=== PATIENT | female | born 1945 | race Caucasian/White ===

== ENCOUNTER 2019-09-25 13:02 | Day surgery (SDC) | payer MEDICARE ==
[2019-09-22 12:25] VITALS: BMI 23.8
[~2019-09-25 13:02] MED LIST: Dexamethasone 20 MG/5 ML VIAL ONE; Ketorolac Tromethamine 30 MG/ML VIAL ONE; Lidocaine 1% PF 5 ML VIAL ONE; Ondansetron PF 4 MG/2 ML Vial ONE; PHENYLEPHRINE-NS 100 MCG/ML 10 ML SYRINGE ONE; PROPOFOL 200 MG/20 ML VIAL ONE
[2019-09-25 13:51] LABS: #Basophils 0.1 thou/uL (0.0-0.2); #Eosinphils 0.2 thou/uL (0.0-0.7); #Lymphocytes 2.7 thou/uL (1.20-3.40); #Monocytes 1.2 thou/uL (0.11-0.59); #Neutrophils 6.8 thou/uL (1.40-6.50); %Basophils 0.8 % (0.0-1.0); %Lymphocytes 24.4 % (21.0-51.0); %Monocytes 10.8 % (0.0-10.0); Hemoglobin 9.4 g/dL (12.0-16.0); Mean Corpuscular Hemoglobin 29.3 pg (27.0-31.0); Mean Corpuscular Volume 91.5 fL (78.0-98.0); Mean Platelet Volume 7.2 fL (7.4-10.4); Platelet Count 351 thou/uL (130-400); RBC Distribution Width 16.9 % (11.5-14.5)
[2019-09-25] MEDS ORDERED: Betamet Acet/Betamet Na Ph 30 MG/5 ML VIAL ONE (15:22)
[2019-09-25] MEDS ORDERED: Bupivacaine PF 0.5% 30 ML VIAL ONE (15:22)
[2019-09-25] MEDS ORDERED: Bacitracin Zinc Ointment 30 gm TUBE ONE (15:22)
[2019-09-25] MEDS ORDERED: Fentanyl 100 MCG/2 ML VIAL ONE (15:37)
--- NOTE | 2019-09-26 09:26 | OP ---
DATE OF PROCEDURE: 09/25/2019 PREOPERATIVE DIAGNOSIS: Right thumb 3.0 cm tumor. 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 PROCEDURES PERFORMED: 1. Excision, 3.0 cm x 1.0 cm (4 square cm diameter) squamous cell carcinoma. 2. 3 x 1 cm full-thickness skin graft from the ipsilateral, antecubital fossa full-thickness. 3. Ulnar digital nerve neuroplasty, mass sent to the lab. Initially, 3 cm long was not enough and performed a 5 mm more margin making the total tumor area approximately 3.5 cm. In the second specimen, margins were clear. TOURNIQUET TIME: 7 minutes. INDICATIONS FOR PROCEDURE: The patient came to clinic approximately 2 weeks ago with a mass that had a cornified central portion. We felt that it could be squamous cell carcinoma versus some type of area should be removed. The case was enough that it did not need to be delayed based on coronavirus protocols. DESCRIPTION OF PROCEDURE: After successful general endotracheal anesthesia, the limb was prepped and draped. We then gave a field block 3 cm proximal to the mass. As we began to excise the mass, we noticed that the ulnar edge of the tumor including the margins was over the ulnar digital nerve, so we performed a complete ulnar digital nerve neuroplasty before we removed the mass. Then, we initially took what I felt was a 3 and 0.2 cm area of skin for about a 3 cm mass, but on one portion, the margin was not clear, so performed a 5 mm resection completely around giving us a 3.5 cm total benign tumor removal. The final margin had no squamous cell carcinoma in its margin. In one region, there was a 1 mm area of dedifferentiated cells, but not cancer, so we then performed another 2 mm margin in this region. Thus, we felt the margins were clear. We released the tourniquet and irrigated the area. We then harvested a 3 x 1 cm (4 square cm area) and skin graft, full-thickness, we then sutured it to extended it, and hemostasis underneath it and then, a running 5-0 chromic suture with bolstered 4-0 nylon over bacitracin under Adaptic under mineral oil soaked cotton balls. We tied this down. There was excellent coaptation of the graft to the underlying fat and there was no separation. The thumb had a pink color with 1 second refill. Bulky dressing was applied. The patient left the operating room without evidence of anesthetic or operative complication. Job ID: [id number]
== END 2019-09-25 20:05 | disposition home or self-care (01) ==
LOC: SDC 13:02
PROVIDERS: ATTEND Orthopaedic Surgery Hand Surgery
PROC: 0HBFXZZ Excision of Right Hand Skin, External Approach (ICD-10-PCS; principal; 2019-09-25)
PROC: 0HRFX73 Replacement of Right Hand Skin with Autologous Tissue Substitute, Full Thickness, External Approach (ICD-10-PCS; 2019-09-25)
PROC: 01N40ZZ Release Ulnar Nerve, Open Approach (ICD-10-PCS; 2019-09-25)
DX: C44.622 Squamous cell carcinoma of skin of right upper limb, including shoulder (principal); I96 Gangrene, not elsewhere classified; E11.29 Type 2 diabetes mellitus with other diabetic kidney complication; F17.200 Nicotine dependence, unspecified, uncomplicated; E78.5 Hyperlipidemia, unspecified; Z79.82 Long term (current) use of aspirin; Z79.899 Other long term (current) drug therapy
CPT/HCPCS: 36415; 85025; 88304; 88305; 88331; 88332; 93005; 93010; J0690; J0702; J1100; J1885; J2001; J2405; J2704; J3010; J3490; S0020

== ENCOUNTER 2019-09-26 14:16 | Inpatient (IN) | payer MEDICARE ==
[2019-09-26] MEDS ORDERED: Iopamidol-370 76% 500 ML 1 ML ONE (14:34)
[2019-09-26 14:56] LABS: #Basophils 0.1 thou/uL (0.0-0.2); #Monocytes 1.8 thou/uL (0.11-0.59); #Neutrophils 15.7 thou/uL (1.40-6.50); %Basophils 0.4 % (0.0-1.0); %Eosinophils 0.1 % (0.0-10.0); %Lymphocytes 10.1 % (21.0-51.0); %Neutrophils 80.3 % (42.0-75.0); Mean Corpuscular HGB CONC 31.5 g/dL (32.0-36.0); Mean Corpuscular Hemoglobin 29.2 pg (27.0-31.0); Mean Corpuscular Volume 92.7 fL (78.0-98.0); Mean Platelet Volume 7.6 fL (7.4-10.4); Platelet Count 379 thou/uL (130-400); RBC Distribution Width 17.2 % (11.5-14.5); Red Blood Cell (RBC) Count 3.08 mill/uL (4.20-5.40); White Blood Cell (WBC) Count 19.6 thou/uL (4.8-10.8)
--- NOTE | 2019-09-26 15:04 | RAD ---
CHEST 1 VIEW: Date: 09/26/2019 HISTORY: Dyspnea and shortness of breath. FINDINGS: Heart size is within upper range of normal. Increased linear and interstitial markings bilaterally an d small bilateral pleural effusions, raising concern for the possibility of some edema and small effu sions. No confluent lobar pneumonia. No old studies. IMPRESSION: 1. Increased linear and interstitial markings bilaterally with small bilateral pleural effusions, po ssibly representing mild edema or diffuse atypical pneumonia or pneumonitis. 2. Atherosclerosis of aorta. Depending on concern, short-term follow-up with upright PA and lateral chest might give additional in formation. POS: [facility]
[2019-09-26 15:37] LABS: ALT (SGPT) 16 U/L (8-55); AST (SGOT) 34 U/L (5-34); Albumin 4.1 g/dL (3.4-4.8); Alkaline Phosphatase 87 U/L (40-110); Anion Gap 14 mmol/L (10-20); BUN (Urea Nitrogen) 11 mg/dL (9.8-20.1); Bilirubin, Total 0.5 mg/dL (0.2-1.2); Calc. Creatinine Clearance 0 mL/min (70-130); Calcium 9.3 mg/dL (7.8-10.44); Carbon Dioxide 26 mmol/L (23-31); Chloride 105 mmol/L (98-107); Estimated GFR-MDRD 67; Globulin 2.6 g/dL (2.4-3.5); Glucose 128 mg/dL (83-110); Potassium 4.6 mmol/L (3.5-5.1); Protein, Total 6.7 g/dL (6.0-8.3); Sodium 140 mmol/L (136-145)
[2019-09-26 16:09] LABS: CKMB 16.9 ng/mL (0-6.6)
--- NOTE | 2019-09-26 16:11 | CT ---
CTA Angio Chest W WO Con History: Shortness of breath Comparison: Radiograph same day Findings: CT angiogram of the chest performed after the intravenous administration of contrast. 3-D r endering provided. No proximal segmental pulmonary arterial filling defect. Heart size mildly enlarged. Reactive mediastinal lymph nodes. Aortic contour is nonaneurysmal. Moderate bilateral pleural effusions. Mild interstitial and developing alveolar edema. Moderate background centrilobular emphysema. No acut e osseous abnormality. Clavicles are intact as well as the sternum and manubrium. No acute displaced rib fracture. There is high-grade ossification of a left ventricle papillary muscle. Impression: 1. No proximal segmental pulmonary arterial filling defect. 2. Mild decompensated congestive heart failure. 3. Moderate background pulmonary emphysema.
[2019-09-26 16:40] LABS: Analyzer IN Cardio ER; Base Excess (BEa) -4.9 mEq/L (-2.0 to +3.0); CO2 Tension 36.4 mmHg (35.0-45.0); Calcium, Ionized 1.15 mmol/L (1.12-1.30); Carboxyhemoglobin (COHb) 0.8 gm% (0.0-3.0); Hemoglobin (Hb) 9.6 g/dL (12.0-16.0); O2 Tension (PaO2) 72.8 mmHg (> 70.0); Potassium - ABG Lab 4.09 mmol/L (3.70-5.30); Puncture Site RRA; pH, Arterial 7.36 (7.35-7.45)
[2019-09-26] MEDS ORDERED: Furosemide 20 MG/2 ML VIAL ONE (16:47)
[2019-09-26] MEDS ORDERED: Enoxaparin Sodium 60 MG/0.6 ML SYRINGE ONE (16:47)
--- NOTE | 2019-09-26 19:12 | HP ---
PRIMARY CARE PHYSICIAN: Dr. Garcia. CHIEF COMPLAINT: Shortness of breath. HISTORY OF PRESENT ILLNESS: This is a 74-year-old white female with a past medical history of longstanding smoking and longstanding mild shortness of breath at baseline, never diagnosed with emphysema, but likely has, also with a history of hyperlipidemia and previous carotid stenosis with TIA, status post CEA. She continues to smoke. She did have a cancerous lesion on her thumb removed by Dr. Diaz yesterday. The patient was in her baseline physical status at that time. After surgery, she did well. She went home, had no problems overnight, but this morning, she started having a little shortness of breath, and then around 11:30 or 12, it got severely worse, seemed a little better when she would lay down, much worse if she would move with activity. Eventually, she called EMS. She was found to be in the 70s at home. She does not use any oxygen at home, was put on BiPAP and given nebs, and brought into the emergency room. She was doing much better at that time, and she was weaned down to 4 L nasal cannula; however, then she started to work a lot harder again, and O2 saturations started to drop again, so she was put back on BiPAP, on which she is quite comfortable right now. She was found to have an elevated troponin of 0.4, an elevated brain natriuretic peptide of 500, and an elevated D-dimer, so CTA was done, which showed no pulmonary embolism, but she did have mild pulmonary edema. No evidence of pneumonia. She did have an elevated white count of 20,000 without any source of infection identified. REVIEW OF SYSTEMS: CONSTITUTIONAL: No fevers. No chills. EYES: No double vision or blurred vision. ENT: No congestion or drainage. She has had a little bit of sore throat since her surgery yesterday from the tube being put down, but not bad and has been swallowing well. CARDIOVASCULAR: No chest pain. No palpitations or racing heart. PULMONARY: See HPI. She has also had wheezing, minimal cough, and not productive at all. She has had chest tightness. GASTROINTESTINAL: No abdominal pain. No nausea or vomiting. No diarrhea or constipation. GENITOURINARY: No dysuria or hematuria. MUSCULOSKELETAL: No muscle aches or joint pain. SKIN: No rashes or lesions she has noted. EXTREMITIES: No lower extremity edema. NEUROLOGIC: No numbness, tingling, or focal weakness. PAST MEDICAL HISTORY: 1. Previous TIA. 2. Right carotid stenosis, status post CEA. 3. Hyperlipidemia. 4. Likely emphysema, not requiring oxygen or inhalers. 5. Diabetes mellitus mentioned in previous hospital notes, but the patient denies and is not on any medication. PAST SURGICAL HISTORY: 1. Right carotid endarterectomy in 2016. 2. Ventral hernia repair in 1973. 3. Tonsillectomy. 4. Cataract surgery to the right eye. 5. Bilateral tubal ligation. FAMILY HISTORY: Mother of a heart attack at age 36, and she had 2 brothers who fairly early of unknown causes. SOCIAL HISTORY: The patient has smoked 1 pack per day for the last 60 years. She drinks 2 rum and cokes per day. No illicit drugs. She is a full code. Her would be her medical decision maker. His name is Gadiel Paiz Jr. ALLERGIES: NO KNOWN DRUG ALLERGIES. CURRENT MEDICATIONS: 1. Aspirin 325 mg daily. 2. Simvastatin 80 mg at night. PHYSICAL EXAMINATION: VITAL SIGNS: Blood pressure 127/78, pulse 120, respirations 25, O2 saturation 92%. This was on right when she was put on BiPAP. Currently, on my exam, her heart rate is running in the low 100s, and her respiratory rate is down around 21 to 22 per minute. GENERAL: This is a well-developed, well-nourished, white female, in mild respiratory distress. Breathing much easier on the BiPAP. HEENT: Pupils are equal, round, and reactive to light. Oropharynx, dry mucous membranes. NECK: Supple. No lymphadenopathy. No thyroid nodules or enlargement. HEART: Regular rate and regular rhythm. Mildly tachycardic. No murmurs, rubs, or gallops. LUNGS: She has decreased breath sounds throughout. Some mild wheezing occasionally. No crackles noted. ABDOMEN: Soft. Nontender to palpation. Normoactive bowel sounds. No hepatosplenomegaly or other masses. No hepatojugular reflux. EXTREMITIES: No clubbing, cyanosis, or edema. SKIN: No rashes or lesions noted. NEUROLOGIC: The patient has intact strength and sensation in all extremities. No facial droop. PSYCHIATRIC: Alert and oriented x3. Normal mood and affect. LABORATORY DATA: CBC with a white blood cell count of 19,600, platelet count of 379, hemoglobin 9, hematocrit 28.5. Coagulation profile; D-dimer is elevated at 0.88. Complete metabolic panel is notable only for glucose of 128. brain natriuretic peptide was elevated at 493. Troponin was elevated at 0.421, and CK-MB was elevated at 16.9. EKG done in the emergency room shows sinus tachycardia. There are some downsloping ST segments with some inverted T waves in the lateral [address]-segment elevation. Chest x-ray: I did review the chest x-ray done in the emergency room along with the radiologist's report. There are some very mild interstitial changes that could be early pulmonary edema on that chest x-ray. CT scan does show no pulmonary embolism, but does show mild pulmonary edema without any infiltrates. ASSESSMENT AND PLAN: 1. Acute congestive heart failure with evidence of [id number] myocardial infarction. The patient has been given aspirin and Lovenox in the emergency room for this. No current chest pain. No significant blood pressure elevations at this time. We will continue IV Lasix 20 mg IV twice a day. We will also get an echocardiogram. We will consult Dr. Jurado for the morning. We will make the patient n.p.o. after midnight in case Dr. Jurado wants to do any catheterization should she be in a better respiratory status in the morning. I will continue the full-dose Lovenox q.12 hours. We will start the patient on low-dose KELECHI and low-dose Coreg as well, especially with her tachycardia. 2. Oaqdw-[id number] respiratory failure with hypoxia, likely secondary to congestive heart failure exacerbation and emphysema. Continue BiPAP as needed and wean off as tolerated. 3. Emphysema with acute exacerbation. We will give some IV steroids and nebulizing treatments. No specific infectious signs at this point, so we will hold off on any antibiotics, but given the elevated white count, we will go ahead and draw blood cultures, check urinalysis, and watch closely for signs of infection. We will consult Dr. Moreira, Pulmonology to assist. 4. Hyperlipidemia. We will convert the patient to high-dose atorvastatin with her acute myocardial infarction. 5. Gastrointestinal prophylaxis. Put the patient on Pepcid twice a day. 6. Deep venous thrombosis prophylaxis. The patient is already on Lovenox. 7. Code status: The patient is a full code. Should she be incapacitated, her will be her medical decision maker. His name is Gadiel Paiz. Job ID: [id number]
[2019-09-26 19:33] LABS: Troponin I 2.039 ng/mL (< 0.028)
[2019-09-26] MEDS ORDERED: Aspirin Chewable 81 MG TAB ONE (19:36)
[2019-09-26] MEDS ORDERED: Ondansetron ODT 4 MG TAB PO PRN (20:36)
[2019-09-26] MEDS ORDERED: Acetaminophen 650 MG Suppository PR PRN (20:36)
[2019-09-26] MEDS ORDERED: Dextrose 50% Abboject 50 ML SYRINGE SLOW IVP PRN (20:36)
[2019-09-26] MEDS ORDERED: Ondansetron PF 4 MG/2 ML Vial IVP PRN (20:36)
[2019-09-26] MEDS ORDERED: Albuterol Sulfate 2.5 mg/3 ml Neb NEB PRN (20:36)
[2019-09-26] MEDS ORDERED: HumaLOG 300 UNITS/3 ML VIAL SC PRN (20:36)
[2019-09-26] MEDS ORDERED: Acetaminophen 325 MG TAB PO PRN (20:36)
[2019-09-26] MEDS ORDERED: Dextrose 5% in Water 1,000 ML IV PRN (20:36)
[2019-09-26] MEDS ORDERED: Guaifenesin DM 100-10/5 ML UDCUP PO PRN (20:36)
[2019-09-26] MEDS ORDERED: Bacteriostatic Water 30 ML VIAL FS PRN (20:53)
[2019-09-26] MEDS: Atorvastatin Calcium 40 MG TAB PO SCH (21:18)
[2019-09-26] MEDS: Famotidine 20 MG TAB PO SCH (21:18)
[2019-09-26] MEDS: Carvedilol 3.125 MG TAB PO SCH (21:18)
[2019-09-27] MEDS: methylPREDNISolone Sod Succ 40 MG VIAL IVP SCH ×4 (00:02→16:56)
[2019-09-27 03:51] LABS: #Basophils 0.1 thou/uL (0.0-0.2); #Monocytes 0.7 thou/uL (0.11-0.59); #Neutrophils 12.3 thou/uL (1.40-6.50); %Basophils 0.4 % (0.0-1.0); %Eosinophils 0.2 % (0.0-10.0); %Lymphocytes 7.2 % (21.0-51.0); %Monocytes 5.2 % (0.0-10.0); Hemoglobin 8.5 g/dL (12.0-16.0); Mean Corpuscular HGB CONC 32.1 g/dL (32.0-36.0); Mean Corpuscular Hemoglobin 29.6 pg (27.0-31.0); Mean Corpuscular Volume 92.1 fL (78.0-98.0); Mean Platelet Volume 8.1 fL (7.4-10.4); Platelet Count 329 thou/uL (130-400); RBC Distribution Width 17.3 % (11.5-14.5); Red Blood Cell (RBC) Count 2.87 mill/uL (4.20-5.40); White Blood Cell (WBC) Count 14.1 thou/uL (4.8-10.8)
[2019-09-27 03:53] LABS: Anion Gap 12 mmol/L (10-20); BUN (Urea Nitrogen) 12 mg/dL (9.8-20.1); Calc. Creatinine Clearance 66 mL/min (70-130); Carbon Dioxide 26 mmol/L (23-31); Chloride 105 mmol/L (98-107); Estimated GFR-MDRD 75; Glucose 166 mg/dL (83-110); Potassium 4.2 mmol/L (3.5-5.1); Sodium 139 mmol/L (136-145)
[2019-09-27] MEDS: Furosemide 20 MG/2 ML VIAL SLOW IVP SCH ×2 (05:54→13:26)
[2019-09-27 09:23] LABS: Hemoglobin 9.3 g/dL (12.0-16.0); Platelet Count 330 thou/uL (130-400)
[2019-09-27] MEDS: Famotidine 20 MG TAB PO SCH ×2 (09:52→20:51)
[2019-09-27] MEDS: Carvedilol 3.125 MG TAB PO SCH ×2 (09:53→20:51)
[2019-09-27] MEDS: Enoxaparin Sodium 60 MG/0.6 ML SYRINGE SC SCH ×2 (09:53→20:51)
[2019-09-27] MEDS: Aspirin Chewable 81 MG TAB PO SCH (09:53)
[2019-09-27] MEDS: Lisinopril 2.5 MG TAB PO SCH (09:53)
--- NOTE | 2019-09-27 10:37 | PDOC.HOSPP ---
- Subjective Encounter Date: 09/27/19 Encounter Time: 12:30 Subjective: Patient with some low BP this AM to 80s, better now in low 100s. Asymptomatic. Breathing much better. Off Bipap, on NC and sating well. - Objective Vital Signs & Weight: Vital Signs (12 hours) Temp Pulse Resp BP Pulse Ox 09/27/19 09:53 88 85/54 L 09/27/19 07:55 99 09/27/19 07:54 88 20 99 09/27/19 07:44 96 09/27/19 07:37 97.1 F L 09/27/19 04:03 98.8 F 09/27/19 02:12 96 09/27/19 00:27 91 09/26/19 23:41 98.0 F Weight Weight 137 lb 3.2 oz Most Recent Monitor Data Heart Rate from ECG 93 NIBP 76/55 NIBP BP-Mean 62 Respiration from ECG 23 SpO2 90 I&O: 09/26/19 09/27/19 09/28/19 06:59 06:59 06:59 Intake Total 294 Output Total 450 Balance -156 Result Diagrams: 09/27/19 09:07 09/27/19 09:07 Additional Labs: Accuchecks 09/27/19 09/26/19 05:32 20:57 POC Glucose 206 H 141 H Hospitalist ROS - Review of Systems Constitutional: denies: fever, chills Respiratory: reports: cough, shortness of breath Cardiovascular: denies: chest pain, palpitations, orthopnea Gastrointestinal: denies: nausea, vomiting, abdominal pain - Medication Medications: Active Medications Generic Name Dose Route Start Last Admin Trade Name Erasmoq PRN Reason Stop Dose Admin Albuterol/Ipratropium 3 ml 09/27/19 01:00 09/27/19 07:54 Duoneb NEB 3 ml [id number] ELISABETH Administration Aspirin 81 mg 09/27/19 09:00 09/27/19 09:53 Aspirin Chewable PO 81 mg DAILY ELISABETH Administration Atorvastatin Calcium 80 mg 09/26/19 21:00 09/26/19 21:18 Lipitor PO 80 mg HS ELISABETH Administration Carvedilol 3.125 mg 09/26/19 21:00 09/27/19 09:53 Coreg PO Not Given BID ELISABETH Enoxaparin Sodium 60 mg 09/27/19 09:00 09/27/19 09:53 Lovenox SC 60 mg 0900,2100 ELISABETH Administration Famotidine 20 mg 09/26/19 21:00 09/27/19 09:52 Pepcid PO 20 mg BID ELISABETH Administration Furosemide 20 mg 09/27/19 06:00 09/27/19 05:54 Lasix SLOW IVP 20 mg 0600,1400 ELISABETH Administration Lisinopril 2.5 mg 09/27/19 09:00 09/27/19 09:53 Zestril PO Not Given DAILY ELISABETH Methylprednisolone Sodium Succinate 40 mg 09/26/19 23:59 09/27/19 05:54 Solu-Medrol IVP 40 mg Q6HR ELISABETH Administration Sodium Chloride 10 ml 09/26/19 20:01 09/27/19 09:53 Flush - Normal Saline IVF 10 ml PRN PRN Administration Saline Flush - Exam General Appearance: NAD, awake alert ENT: moist mucosa Heart: RRR, no murmur, no gallops, no rubs Respiratory: no tachypnea Respiratory - other findings: poor breath sounds, occ wheezing, no crackles Gastrointestinal: soft, non-tender, non-distended, normal bowel sounds Psychiatric: normal affect, normal behavior, A&O x 3 Hosp A/P (1) Acute congestive heart failure Code(s): I50.9 - HEART FAILURE, UNSPECIFIED Status: Acute (2) NSTEMI (non-ST elevated myocardial infarction) Code(s): I21.4 - NON-ST ELEVATION (NSTEMI) MYOCARDIAL INFARCTION Status: Acute (3) Acute and chronic respiratory failure with hypoxia Code(s): J96.21 - ACUTE AND CHRONIC RESPIRATORY FAILURE WITH HYPOXIA Status: Acute (4) Acute exacerbation of emphysema Code(s): J43.9 - EMPHYSEMA, UNSPECIFIED Status: Acute (5) Hyperlipidemia Code(s): E78.5 - HYPERLIPIDEMIA, UNSPECIFIED Status: Acute - Plan Patient with some hypotensive BP this AM. May not be able to diurese any further. Dr. Jurado cardiology and Dr. Moreira pulmonology consulted. Patient on ASA, Lovenox, Lasix, Coreg and KELECHI-I (held) ECHO pending Patient critically ill
[2019-09-27] MEDS: HumaLOG 300 UNITS/3 ML VIAL SC PRN (16:53)
--- NOTE | 2019-09-27 17:25 | CON ---
DATE OF CONSULTATION: HISTORY OF PRESENT ILLNESS: Kaelyn Infante is a 74-year-old white female without any previously known cardiac disease, although she has undergone a carotid endarterectomy. On September 24, she had removal of her cancerous lesion on her thumb by Dr. Diaz and apparently tolerated procedure well. Then when she woke up on the morning of September 25, she started having increasing shortness of breath in the late morning. She denied any significant coughing. She denied any chest discomfort. She could not get her breath and her called EMS. Apparently when they arrived, her O2 saturation was 78%. She was put on BiPAP, given nebs, brought to the emergency room. She had an elevated D-dimer and so chest CTA was performed which revealed no evidence of pulmonary emboli, however, she did have moderate bilateral effusions and evidence of COPD. Her chest x-ray also showed bilateral effusions with increased interstitial markings. Cardiac enzymes have been elevated and consultation is requested. PAST MEDICAL HISTORY: Hypotension in the past, hyperlipidemia, history of TIA prior to carotid endarterectomy, probable COPD. PAST SURGICAL HISTORY: Right carotid endarte[place] [address] Dupree, ventral hernia repair, tonsillectomy, tubal ligation, and cataract surgery of the right eye. MEDICATIONS: 1. Aspirin 325 q.a.m. 2. Simvastatin 80 q.p.m. SOCIAL HISTORY: She continues to smoke 1 pack per day for the last 60 years. She has 2 to 3 drinks per day. ALLERGIES: NONE. FAMILY HISTORY: Mother of heart attack apparently at age 36. REVIEW OF SYSTEMS: A 10-point review of systems is otherwise unremarkable. PHYSICAL EXAMINATION: VITAL SIGNS: Blood pressure 93/63, pulse of 96. HEENT: PERRL. NECK: Supple. CHEST: Reveals distant breath sounds, but no wheezing. CARDIOVASCULAR: S1 and S2 normal without any S3, S4, or murmurs. Carotid upstrokes normal without bruits. ABDOMEN: Normal bowel sounds without tenderness or organomegaly. EXTREMITIES: Revealed no clubbing, cyanosis, or edema. NEUROLOGIC: Grossly intact. LABORATORY DATA: EKG reveals sinus tachycardia with rate of 103 per minute. There is downsloping ST segments in V4 through V6, which are new from the EKG the day prior when she had undergone thumb surgery. Hemoglobin 8.5, hematocrit 26.4, white count 14,100, platelets 329,000. D-dimer is 0.88, pH 7.36, pCO2 of 36.4, PO2 of 72.8. Sodium 139, potassium 4.2, chloride 105, carbon dioxide 26, BUN 12, creatinine 0.76, glucose 166 up to 206. Troponin I is up to 4.190, CK-MB 16.9. AST and ALT are normal. BNP 493.4. Hemoglobin A1c in April 2019 was 6.2. IMPRESSION: 1. Acute hypoxic respiratory failure, improved with BiPAP. 2. Probable acute systolic heart failure with bilateral pleural effusion seen on chest x-ray. 3. Chronic obstructive pulmonary disease exacerbation. 4. Probable chronic obstructive pulmonary disease. 5. Smoker. 6. Hypercholesterolemia. It is of note that in April 2019, her LDL was 122. LDL from the blood test has never been lower than 94. 7. Positive family history. 8. Peripheral vascular disease-status post right carotid endarterectomy [place] [address] Dupree. 9. Probable non-ST elevation myocardial infarction, type 1. 10. Diabetes which patient denies, and she is not receiving treatment for it. PLAN: Echocardiogram will be performed to assess left ventricular function. The patient will continue to be gently diuresed. Once her respiratory status has improved, consideration should be given to cardiac catheterization. Also fasting lipid profile will be performed and she probably needs much more aggressive regimen for her hypercholesterolemia. Job ID: [id number]
--- NOTE | 2019-09-27 18:58 | CON ---
DATE OF CONSULTATION: 09/27/2019 SERVICE: Pulmonary Medicine. REASON FOR CONSULTATION: [facility] patient. HISTORY OF PRESENT ILLNESS: The patient is a 74-year-old white female with past medical history significant for essentially nothing, who underwent an elective excision of a growth from her thumb on the right. After the procedure, she was discharged home in her usual state of health. She is doing fairly well, but just simply felt off. She really could not put her finger on it. She was not having any chest discomfort, nausea, vomiting or diarrhea. She was having a little bit more weakness than that she previously experienced. Either way, she started having onset of shortness of breath that evening, before she even went to bed. She had a difficult time sleeping, and subsequently presented to the emergency department, where she was discovered to have low oxygen saturations. She was placed on noninvasive ventilation, and given some Lasix because of volume overload event. Subsequently, she improved significantly, but not before BiPAP was initiated. Overnight, her BiPAP was interrupted early in the morning. She does not have any current chest discomfort, nausea or vomiting. Prior to this event, she was not having any fevers. Once again, she is only postop day #1 from the surgery. PAST MEDICAL HISTORY: 1. Dyslipidemia. 2. Type 2 diabetes mellitus. 3. COPD/emphysema, not requiring therapy currently. 4. Peripheral vascular disease. 5. History of TIAs. PAST SURGICAL HISTORY: 1. Carotid endarterectomy on the right. 2. Ventral hernia repair. 3. Tonsillectomy. 4. Cataract surgery on the right. 5. Tubal ligation, bilateral. FAMILY HISTORY: Noncontributory. SOCIAL HISTORY: She has a 66-vyuk-fymu history of smoking and continues to smoke roughly one pack on a daily basis. She drinks 2 to 3 alcoholic beverages on a nightly basis. Denies any street drugs. She has no exposure to chemicals, dust , asbestos or tuberculosis. ALLERGIES: NO KNOWN DRUG ALLERGIES. MEDICATIONS: List of her inpatient medications was reviewed. No specific updates were made at this time. REVIEW OF SYSTEMS: General, head, ears, eyes, nose, throat, cardiovascular, respiratory, GI, , musculoskeletal, neurologic, and skin are negative except as mentioned in the HPI. PHYSICAL EXAMINATION: VITAL SIGNS: Afebrile, pulse 109, blood pressure 99/47, respirations 26, saturation 90%, currently on 2 L nasal cannula. GENERAL: The patient is awake and alert, in no apparent distress. LUNGS: Good air entry bilaterally. There is some minimal dependent crackles present. There is a slightly prolonged expiratory phase with minimal wheezing. Rhonchi are present, but clear with cough. HEART: Normal rate, regular. ABDOMEN: Soft, nontender, and nondistended. Bowel sounds are positive. MUSCULOSKELETAL: No cyanosis or clubbing. There is no pitting in the bilateral lower extremities. She has no skin tenting. NEUROLOGIC: Grossly nonfocal. LABORATORY DATA: Comprehensive metabolic profile is unremarkable. Troponin has gone up from 0.4 up to 4.1. BNP 493. Troponin 0.94 and roughly stable. D- dimer is 0.88. PH of 7.36, pCO2 of 36, pO2 of 72, corresponding to saturation of 93% while wearing 40% FiO2 delivered via BiPAP and a PEEP of 6. Blood cultures x2 are unremarkable. IMAGING: CTA of the chest demonstrates extensive calcifications of the aorta. Emphysema is present. There are bilateral pleural effusions and interstitial fullness consistent with volume overload. There are subtle ground-glass opacifications. The left atrium and left ventricle are dilated. The right atrium and right ventricle are fairly compressed. There is a little bit of reflux of contrast into the inferior vena cava. All these findings are most consistent with emphysema and severe volume overload. ASSESSMENT: 1. Acute hypoxic respiratory failure. 2. Chronic obstructive pulmonary disease with acute exacerbation. 3. [id number]-[id number] myocardial infarction. 4. Acute on chronic diastolic heart failure. 5. Anemia. DISCUSSION AND PLAN: Echocardiogram is currently pending. I will deescalate our steroids to 40 mg of prednisone to be taken on a daily basis. We will continue to diurese the patient slowly through time. She is rapidly approaching euvolemia, so I will back off to once daily on her diuretic. Cardiology opinion is pending regarding the [id number] CA. She has been anticoagulated already. I believe that her respiratory decompensation is associated with volume. As such, I think it is reasonable to hold off on antibiotics for the time being. If she remains off BiPAP, she will be stable for transition out of the IMCU to the telemetry unit. 70 minutes have been devoted to this patient in various activities. I personally reviewed all imaging studies and laboratory data noted within this document. For fifty percent of this time, I was interacting with the patient at the bedside or coordinating care with the care team. For the remainder of the time I was immediately available to the patient in the hospital unit. Job ID: [id number] [id number]
[2019-09-27] MEDS: Atorvastatin Calcium 40 MG TAB PO SCH (20:51)
[2019-09-28 03:51] LABS: Reticulocyte Count 2.9 % (0.5-1.5)
[2019-09-28 04:12] LABS: Band 3 % (5-11); Hemoglobin 8.2 g/dL (12.0-16.0); Lymphocytes 4 % (21-51); MDiff Complete? YES; Mean Corpuscular HGB CONC 33.3 g/dL (32.0-36.0); Mean Corpuscular Hemoglobin 30.3 pg (27.0-31.0); Mean Platelet Volume 8.3 fL (7.4-10.4); Monocytes 8 % (0-10); Neutrophil 85 % (42-75); Platelet Count 310 thou/uL (130-400); Platelet Morphology Comment Appears Adequate; RBC Distribution Width 17.2 % (11.5-14.5); White Blood Cell (WBC) Count 14.2 thou/uL (4.8-10.8)
[2019-09-28 04:13] LABS: Cardiac Risk 2.7 (Less than 4.5); Iron 15 ug/dL (50-170); Iron Binding Capacity, Total 400 mcg/dL (265-497)
[2019-09-28 04:36] LABS: Ferritin 19.13 ng/mL (10-291)
[2019-09-28] MEDS: Furosemide 20 MG/2 ML VIAL SLOW IVP SCH (05:34)
[2019-09-28] MEDS: HumaLOG 300 UNITS/3 ML VIAL SC PRN ×3 (05:34→16:44)
[2019-09-28] MEDS: predniSONE 20 MG TAB PO SCH (08:31)
[2019-09-28] MEDS: Senokot S 8.6-50 MG TAB PO PRN ×2 (08:31→20:02)
[2019-09-28] MEDS: Famotidine 20 MG TAB PO SCH ×2 (08:32→20:02)
[2019-09-28] MEDS: Enoxaparin Sodium 60 MG/0.6 ML SYRINGE SC SCH ×2 (08:32→20:03)
[2019-09-28] MEDS: Aspirin Chewable 81 MG TAB PO SCH (08:32)
[2019-09-28] MEDS: Lisinopril 2.5 MG TAB PO SCH (08:53)
[2019-09-28] MEDS: Carvedilol 3.125 MG TAB PO SCH ×2 (08:53→20:02)
--- NOTE | 2019-09-28 09:15 | PDOC.HOSPP ---
- Subjective Encounter Date: 09/28/19 Encounter Time: 10:50 Subjective: Patient much better. Just taken off O2 by Dr. Moreira. Ambulated with PT. SOB markedly improved. No chest pain. - Objective Vital Signs & Weight: Vital Signs (12 hours) Temp Pulse Resp Pulse Ox 09/28/19 08:53 103 H 09/28/19 07:50 99 09/28/19 07:47 103 H 15 97 09/28/19 07:34 97.8 F 09/28/19 07:14 98 09/28/19 03:45 97.6 F 09/28/19 00:09 95 17 97 09/27/19 23:09 97.4 F L Weight Weight 133 lb 8 oz Most Recent Monitor Data Heart Rate from ECG 95 NIBP 114/74 NIBP BP-Mean 87 Respiration from ECG 25 SpO2 96 I&O: 09/27/19 09/28/19 09/29/19 06:59 06:59 06:59 Intake Total 294 1002 Output Total 450 1600 Balance -156 -598 Result Diagrams: 09/28/19 03:05 09/27/19 09:07 Additional Labs: Accuchecks 09/28/19 09/27/19 09/27/19 05:31 20:27 16:47 POC Glucose 208 H 209 H 253 H 09/27/19 10:33 POC Glucose 188 H Hospitalist ROS - Review of Systems Constitutional: denies: fever, chills Respiratory: denies: cough, dry, shortness of breath, wheezing Cardiovascular: denies: chest pain, palpitations, orthopnea Gastrointestinal: denies: nausea, vomiting, abdominal pain - Medication Medications: Active Medications Generic Name Dose Route Start Last Admin Trade Name Freq PRN Reason Stop Dose Admin Albuterol/Ipratropium 3 ml 09/27/19 01:00 09/28/19 07:47 Duoneb NEB 3 ml [id number] ELISABETH Administration Aspirin 81 mg 09/27/19 09:00 09/28/19 08:32 Aspirin Chewable PO 81 mg DAILY EL[facility] Administration Atorvastatin Calcium 80 mg 09/26/19 21:00 09/27/19 20:51 Lipitor PO 80 mg HS ELISABETH Administration Carvedilol 3.125 mg 09/26/19 21:00 09/28/19 08:53 Coreg PO Not Given BID ELISABETH Enoxaparin Sodium 60 mg 09/27/19 09:00 09/28/19 08:32 Lovenox SC 60 mg 0900,2100 ELISABETH Administration Famotidine 20 mg 09/26/19 21:00 09/28/19 08:32 Pepcid PO 20 mg BID ELISABETH Administration Furosemide 20 mg 09/28/19 06:00 09/28/19 05:34 Lasix SLOW IVP 20 mg 0600 ELISABETH Administration Insulin Human Lispro 0 units 09/26/19 20:36 09/28/19 05:34 Humalog SC 3 unit .MILD SLIDING SCALE PRN Administration Mild Correctional Scale Lisinopril 2.5 mg 09/27/19 09:00 09/28/19 08:53 Zestril PO Not Given DAILY ELISABETH Prednisone 40 mg 09/28/19 08:00 09/28/19 08:31 Prednisone PO 09/30/19 08:01 40 mg QAM-WM ELISABETH Administration Senna/Docusate Sodium 2 tab 09/26/19 20:36 09/28/19 08:31 Senokot S PO 2 tab BID PRN Administration Constipation Sodium Chloride 10 ml 09/26/19 20:01 09/28/19 08:32 Flush - Normal Saline IVF 10 ml PRN PRN Administration Saline Flush - Exam General Appearance: NAD, awake alert ENT: moist mucosa Heart: RRR, no murmur, no gallops, no rubs Respiratory - other findings: improved air movement, no wheezing right now Gastrointestinal: soft, non-tender, non-distended, normal bowel sounds Extremities: no edema Psychiatric: normal affect, normal behavior, A&O x 3 Hosp A/P (1) Acute congestive heart failure Code(s): I50.9 - HEART FAILURE, UNSPECIFIED Status: Acute Qualifiers: Heart failure type: diastolic Qualified Code(s): I50.31 - Acute diastolic ( congestive) heart failure (2) NSTEMI (non-ST elevated myocardial infarction) Code(s): I21.4 - NON-ST ELEVATION (NSTEMI) MYOCARDIAL INFARCTION Status: Acute (3) Acute and chronic respiratory failure with hypoxia Code(s): J96.21 - ACUTE AND CHRONIC RESPIRATORY FAILURE WITH HYPOXIA Status: Acute (4) Acute exacerbation of emphysema Code(s): J43.9 - EMPHYSEMA, UNSPECIFIED Status: Acute (5) Hyperlipidemia Code(s): E78.5 - HYPERLIPIDEMIA, UNSPECIFIED Status: Acute - Plan Patient with some hypotensive BP on and off, better this AM. Diuretics decreased to daily. Dr. Jurado cardiology and Dr. Moreira pulmonology consulted. Patient on ASA, Lovenox, Lasix, Coreg and KELECHI-I (held) ECHO with normal EF 50-55%
--- NOTE | 2019-09-28 09:42 | CON ---
DATE OF CONSULTATION: 09/27/2019 HISTORY OF PRESENT ILLNESS: Ms. Infante is a 74-year-old with a history of vascular disease. Dr. Dupree did a carotid endarterectomy on her in the past. She is a smoker. came in for removal of a lesion on her thumb yesterday. She had an operative procedure. She went home but then last night started getting a little short of breath, which progressed. She has subsequently been admitted through the emergency department with a diagnosis of congestive heart failure. CT angiogram showed findings consistent with pulmonary edema. She had no thromboembolic disease. She received 1700 mL of fluid, lactated Ringer's during the operative procedure. It looks like she had only 5 mL output recorded via blood loss. There are no urinary output records. She did not have a [place]ado. PAST MEDICAL HISTORY: Remarkable for: 1. Lipid disorder. 2. History of probable COPD, although she is relatively asymptomatic. 3. Carotid endarterectomy about 4 years ago. 4. herniorrhaphy. 5. Tubal ligation. 6. Cataract surgery. SOCIAL HISTORY: She is a pack-a-day smoker. She has 2 to 3 drinks in the evening. MEDICATIONS: Prior to admission, she was on aspirin and . She has had no apparent past history of congestive heart failure. FAMILY HISTORY: Positive for vascular disease. REVIEW OF SYSTEMS: Otherwise, negative. ALLERGIES: SHE REPORTS NO DRUG ALLERGIES. PHYSICAL EXAMINATION: GENERAL: She is in no distress, sitting on the side of the bed. VITAL SIGNS: She is afebrile, heart rate is 92, blood pressure 106/ , respiratory rate is 19, . HEENT: Pupils are equal. Sclerae are anicteric. NECK: Supple. No lymphadenopathy. LUNGS: Clear without wheezes. HEART: Regular rhythm. S1 grade 1-2/6 systolic murmur. ABDOMEN: Soft and nontender. EXTREMITIES: Without clubbing, cyanosis, or edema. She does have a bandage on the wrist. LABORATORY DATA: White count 14.1, . Electrolytes are normal. Troponin was 4.1. BNP was 493. IMPRESSION: Pulmonary edema, most likely cardiogenic. She does not have a history of cardiomyopathy, but I would wonder if in the OR may have pushed her over the edge. She may have an undiagnosed cardiomyopathy. Cardiology has been consulted. She is clinically improved. I suspect she does have some chronic obstructive pulmonary disease, but I do not feel like this is a big player on this episode of respiratory distress. An echocardiogram has been ordered. I will follow with the other physicians caring for her my visit with her. TIME SPENT: This is a 50-minute consult, 50% of the time was spent on the unit coordinating care. Job ID: [id number]
--- NOTE | 2019-09-28 12:02 | PRG ---
DATE OF SERVICE: 09/28/2019 SUBJECTIVE: Ms. Infante is afebrile. She says she is feeling better. OBJECTIVE: VITAL SIGNS: Blood pressure 105/75, heart rate is 97, respiratory rates in the teens. LUNGS: Still remarkable for fine crackles at both bases. She is not wheezing. HEART: Regular rhythm. ABDOMEN: Soft and nontender. EXTREMITIES: Without edema. LABORATORY DATA: White count 14.2, hemoglobin 8.2, and platelets 310. No electrolytes today. Echocardiogram shows a normal ejection fraction with moderate mitral regurgitation and moderate aortic insufficiency. IMPRESSION: Pulmonary edema, likely cardiogenic, related to IV fluids. I would wonder if her mitral valve was not leaking more during surgery or she had an ischemic event. If she has chronic obstructive pulmonary disease, that appears to be stable. We will continue to follow. She appears to be clinically improving. Job ID: [id number]
[2019-09-28] MEDS: Amiodarone 450 MG in Dextrose 5% in Water 250 ML IVPB SCH (17:58)
[2019-09-28] MEDS: Atorvastatin Calcium 40 MG TAB PO SCH (20:02)
[2019-09-28] MEDS ORDERED: Melatonin 3 MG TAB PO SCH (22:30)
[2019-09-29] MEDS: Amiodarone 450 MG in Dextrose 5% in Water 250 ML IVPB SCH ×2 (02:02→17:13)
[2019-09-29 04:05] LABS: Anion Gap 10 mmol/L (10-20); BUN (Urea Nitrogen) 22 mg/dL (9.8-20.1); Calc. Creatinine Clearance 61 mL/min (70-130); Calcium 8.9 mg/dL (7.8-10.44); Carbon Dioxide 29 mmol/L (23-31); Chloride 101 mmol/L (98-107); Estimated GFR-MDRD 71; Glucose 126 mg/dL (83-110); Potassium 3.3 mmol/L (3.5-5.1); Sodium 137 mmol/L (136-145)
[2019-09-29] MEDS: Furosemide 20 MG/2 ML VIAL SLOW IVP SCH (05:43)
[2019-09-29] MEDS: Carvedilol 3.125 MG TAB PO SCH ×2 (08:43→20:16)
[2019-09-29] MEDS: predniSONE 20 MG TAB PO SCH (08:44)
[2019-09-29] MEDS: Famotidine 20 MG TAB PO SCH ×2 (08:44→20:15)
[2019-09-29] MEDS: Senokot S 8.6-50 MG TAB PO PRN (08:44)
[2019-09-29] MEDS: Enoxaparin Sodium 60 MG/0.6 ML SYRINGE SC SCH (08:44)
[2019-09-29] MEDS: Aspirin Chewable 81 MG TAB PO SCH (08:45)
[2019-09-29] MEDS ORDERED: Potassium Chloride 20 MEQ TAB PO SCH (11:15)
[2019-09-29] MEDS: HumaLOG 300 UNITS/3 ML VIAL SC PRN ×2 (11:45→17:15)
--- NOTE | 2019-09-29 17:44 | PDOC.HOSPP ---
- Subjective Encounter Date: 09/29/19 Encounter Time: :20 Subjective: Pt seen for followup re: CHF exacerbation. feels better. - Objective Vital Signs & Weight: Vital Signs (12 hours) Temp Pulse Pulse Pulse Resp BP BP 09/29/19 15:47 97.8 F 09/29/19 13:30 76 18 09/29/19 12:00 97.6 F 09/29/19 09:10 127 H 84 89/68 L 109/59 L 09/29/19 07:51 97.5 F L 09/29/19 07:31 Pulse Ox Pulse Ox Pulse Ox 09/29/19 15:47 09/29/19 13:30 99 09/29/19 12:00 09/29/19 09:10 94 L 96 09/29/19 07:51 09/29/19 07:31 92 L Weight Weight 130 lb Most Recent Monitor Data Heart Rate from ECG 77 NIBP 100/50 NIBP BP-Mean 66 Respiration from ECG 22 SpO2 90 I&O: 09/28/19 09/29/19 09/30/19 06:59 06:59 06:59 Intake Total 1002 1330 Output Total 1600 1050 Balance -598 280 Result Diagrams: 09/28/19 03:05 09/29/19 03:21 Additional Labs: Accuchecks 09/29/19 09/29/19 09/29/19 17:21 11:34 05:52 POC Glucose 212 H 205 H 133 H 09/28/19 09/28/19 20:05 10:57 POC Glucose 211 H 186 H Labs and MARs reviewed by me EKG Reviewed by me: Yes (Tele: NSR) Hospitalist ROS - Review of Systems Respiratory: reports: SOB with excertion. denies: cough, dry, shortness of breath, hemoptysis, pleuritic pain, sputum, wheezing Cardiovascular: denies: chest pain, palpitations, orthopnea, paroxysmal noc. dyspnea, edema, light headedness - Medication Medications: Active Medications Generic Name Dose Route Start Last Admin Trade Name Freq PRN Reason Stop Dose Admin Albuterol/Ipratropium 3 ml 09/27/19 01:00 09/29/19 13:30 Duoneb NEB 3 ml [id number] ELISABETH Administration Aspirin 81 mg 09/27/19 09:00 09/29/19 08:45 Aspirin Chewable PO 81 mg DAILY [facility] Administration Atorvastatin Calcium 80 mg 09/26/19 21:00 09/28/19 20:02 Lipitor PO 80 mg HS [facility] Administration Carvedilol 3.125 mg 09/26/19 21:00 09/29/19 08:43 Coreg PO Not Given BID [facility] Enoxaparin Sodium 60 mg 09/27/19 09:00 09/29/19 08:44 Lovenox SC 60 mg 0900,2100 [facility] Administration Famotidine 20 mg 09/26/19 21:00 09/29/19 08:44 Pepcid PO 20 mg BID [facility] Administration Furosemide 20 mg 09/28/19 06:00 09/29/19 05:43 Lasix SLOW IVP 20 mg 0600 [facility] Administration Amiodarone HCl 450 mg/ 259 mls @ 0 mls/hr 09/28/19 17:15 09/29/19 17:13 Dextrose/Water IVPB 259 mls INF ELISABETH Administration Protocol Per Protocol Insulin Human Lispro 0 units 09/26/19 20:36 09/29/19 17:15 Humalog SC 3 unit .MILD SLIDING SCALE PRN Administration Mild Correctional Scale Insulin Human Lispro 0 units 09/26/19 20:36 09/28/19 20:06 Humalog SC 2 unit .BEDTIME SLIDING SC PRN Administration Bedtime Correctional Scale Prednisone 40 mg 09/28/19 08:00 09/29/19 08:44 Prednisone PO 09/30/19 08:01 40 mg QAM-WM ELISABETH Administration Senna/Docusate Sodium 2 tab 09/26/19 20:36 09/29/19 08:44 Senokot S PO 2 tab BID PRN Administration Constipation Sodium Chloride 10 ml 09/26/19 20:01 09/29/19 08:44 Flush - Normal Saline IVF 10 ml PRN PRN Administration Saline Flush - Exam General Appearance: awake alert Eye: anicteric sclera ENT: moist mucosa Neck: supple, symmetric Heart: RRR Respiratory: no wheezes, rales Musculoskeletal: no muscle wasting Psychiatric: normal affect, normal behavior Hosp A/P - Plan - Assessment (1) Acute diastolic congestive heart failure Status: Acute Qualifiers: Heart failure type: diastolic Qualified Code(s): I50.31 - Acute diastolic ( congestive) heart failure (2) Acute on chronic respiratory failure with hypoxia Code(s): J96.21 - ACUTE AND CHRONIC RESPIRATORY FAILURE WITH HYPOXIA Status: Acute (3) NSTEMI (non-ST elevated myocardial infarction) Code(s): I21.4 - NON-ST ELEVATION (NSTEMI) MYOCARDIAL INFARCTION Status: Acute (4) Acute exacerbation of emphysema Code(s): J43.9 - EMPHYSEMA, UNSPECIFIED Status: Acute (5) Hyperlipidemia Code(s): E78.5 - HYPERLIPIDEMIA, UNSPECIFIED Status: Chronic - Plan Continue IV furosemide. For cath after resp status improves. Blood pressures low at times. Continue atorvastatin.
--- NOTE | 2019-09-29 19:25 | PRG ---
DATE OF SERVICE: 09/29/2019 OBJECTIVE: VITAL SIGNS: Ms. Infante got heart rate in the 80s, respiratory rates in the teens, oximetry is 94% on room air, blood pressure 110/44. She says she feels pretty close to normal now. LUNGS: Clear. HEART: Irregular rhythm. She appears still be in atrial fibrillation. ABDOMEN: Soft. LABORATORY DATA: Sodium 137, potassium 3.3, chloride 101, bicarb 29, BUN 22, creatinine 0.79. IMPRESSION: 1. Status post presentation with volume overload that is clinically improved. 2. [id number] bump in troponin. 3. Mitral regurgitation. 4. Chronic obstructive pulmonary disease, not a clinically significant issue at this point in time. PLAN: We will continue to follow. Job ID: [id number]
[2019-09-29] MEDS: Atorvastatin Calcium 40 MG TAB PO SCH (20:15)
[2019-09-29] MEDS: Amiodarone 200 MG TAB PO SCH (20:15)
[2019-09-29] MEDS: Melatonin 3 MG TAB PO PRN (23:47)
[2019-09-30 03:46] LABS: #Lymphocytes 3.2 thou/uL (1.20-3.40); #Monocytes 1.7 thou/uL (0.11-0.59); %Basophils 0.1 % (0.0-1.0); %Eosinophils 0.2 % (0.0-10.0); %Monocytes 10.9 % (0.0-10.0); %Neutrophils 68.8 % (42.0-75.0); Hemoglobin 8.7 g/dL (12.0-16.0); Mean Corpuscular HGB CONC 32.5 g/dL (32.0-36.0); Mean Corpuscular Hemoglobin 29.6 pg (27.0-31.0); Mean Platelet Volume 8.1 fL (7.4-10.4); Platelet Count 305 thou/uL (130-400); RBC Distribution Width 16.9 % (11.5-14.5); Red Blood Cell (RBC) Count 2.95 mill/uL (4.20-5.40)
[2019-09-30 04:03] LABS: Anion Gap 14 mmol/L (10-20); BUN (Urea Nitrogen) 20 mg/dL (9.8-20.1); Calc. Creatinine Clearance 53 mL/min (70-130); Calcium 9.1 mg/dL (7.8-10.44); Carbon Dioxide 26 mmol/L (23-31); Chloride 100 mmol/L (98-107); Estimated GFR-MDRD 63; Glucose 134 mg/dL (83-110); Potassium 3.3 mmol/L (3.5-5.1); Sodium 137 mmol/L (136-145)
[2019-09-30] MEDS: Amiodarone 200 MG TAB PO SCH ×2 (09:18→20:05)
[2019-09-30] MEDS: Carvedilol 3.125 MG TAB PO SCH ×2 (09:20→20:26)
[2019-09-30] MEDS: Furosemide 20 MG TAB PO SCH (09:20)
[2019-09-30] MEDS: Famotidine 20 MG TAB PO SCH ×2 (09:20→20:05)
[2019-09-30] MEDS: Aspirin Chewable 81 MG TAB PO SCH (09:20)
[2019-09-30] MEDS: predniSONE 20 MG TAB PO SCH (09:20)
[2019-09-30 09:29] LABS: Hemoglobin 8.6 g/dL (12.0-16.0); Platelet Count 304 thou/uL (130-400)
--- NOTE | 2019-09-30 11:09 | PDOC.CPN ---
- Subjective Date: 09/30/19 Time: 13:18 Interval history: Doing better overall. No curreent complaints. O2 sats in the low 90's - Objective Allergies/Adverse Reactions: Allergies Allergy/AdvReac Type Severity Reaction Status Date / Time No Known Allergies Allergy Verified 09/27/19 00:30 Visit Medications: Current Medications Acetaminophen (Tylenol) 650 mg PO Q4H PRN PRN Reason: Headache/Fever/Mild Pain (1-3) Acetaminophen (Tylenol) 650 mg VA Q4H PRN PRN Reason: Headache/Fever/Mild Pain (1-3) Albuterol Sulfate (Ventolin) 2.5 mg NEB [id number] PRN PRN Reason: Wheezing Last Admin: 09/30/19 02:34 Dose: 2.5 mg Albuterol/Ipratropium (Duoneb) 3 ml NEB [id number] [facility] Last Admin: 09/30/19 07:00 Dose: 3 ml Amiodarone HCl (Cordarone) 400 mg PO BID [facility] Last Admin: 09/30/19 09:18 Dose: 400 mg Aspirin (Aspirin Chewable) 81 mg PO DAILY [facility] Last Admin: 09/30/19 09:20 Dose: 81 mg Atorvastatin Calcium (Lipitor) 80 mg PO HS [facility] Last Admin: 09/29/19 20:15 Dose: 80 mg Carvedilol (Coreg) 3.125 mg PO BID [facility] Last Admin: 09/30/19 09:20 Dose: 3.125 mg Dextrose/Water (Dextrose 50%) 25 gm SLOW IVP PRN PRN PRN Reason: Hypoglycemia Famotidine (Pepcid) 20 mg PO BID [facility] Last Admin: 09/30/19 09:20 Dose: 20 mg Furosemide (Lasix) 20 mg PO DAILY [facility] Last Admin: 09/30/19 09:20 Dose: 20 mg Glucagon (Glucagon) 1 mg IM PRN PRN PRN Reason: Hypoglycemia Dextrose/Water (D5w) 1,000 mls @ 0 mls/hr IV .Q0M PRN PRN Reason: Hypoglycemia Insulin Human Lispro (Humalog) 0 units SC .MILD SLIDING SCALE PRN PRN Reason: Mild Correctional Scale Last Admin: 09/29/19 17:15 Dose: 3 unit Insulin Human Lispro (Humalog) 0 units SC .BEDTIME SLIDING SC PRN PRN Reason: Bedtime Correctional Scale Last Admin: 09/28/19 20:06 Dose: 2 unit Melatonin (Melatonin) 3 mg PO HS PRN PRN Reason: Insomnia Last Admin: 09/29/19 23:47 Dose: 3 mg Ondansetron HCl (Zofran Odt) 4 mg PO Q6H PRN PRN Reason: Nausea/Vomiting Ondansetron HCl (Zofran) 4 mg IVP Q6H PRN PRN Reason: Nausea/Vomiting Senna/Docusate Sodium (Senokot S) 2 tab PO BID PRN PRN Reason: Constipation Last Admin: 09/29/19 08:44 Dose: 2 tab Sodium Chloride (Flush - Normal Saline) 10 ml IVF PRN PRN PRN Reason: Saline Flush Last Admin: 09/29/19 08:44 Dose: 10 ml Sterile Water (Bacteriostatic Water) 1 ml FS PRN PRN PRN Reason: RECONSTITUTION Vital Signs & Weight: Vital Signs Temp Pulse Resp Pulse Ox 09/30/19 08:00 95 09/30/19 07:26 97.6 F 09/30/19 07:00 85 17 92 L 09/30/19 03:50 98.3 F 09/30/19 02:34 91 24 H 95 09/30/19 00:00 97.6 F 09/29/19 23:21 80 16 Weight 130 lb 1.6 oz - Physical Exam HEENT: mucus membranes moist Neck: supple neck Cardiac: no murmur, regular rate, regular rhythm Lungs: normal exam - Labs Result Diagrams: 09/30/19 09:10 09/30/19 09:10 Troponin/CKMB CK-MB (CK-2) 16.9 ng/mL (0-6.6) H* 09/26/19 14:44 Troponin I 4.190 ng/mL (< 0.028) H* 09/27/19 03:16 - Assessment/Plan Assessment/Plan: Type I [place] tobacco use Hypoxia Hyperlipidemia DM CV status stable Anemia persists Initial recommendation of angio but pt states she was told yesterday it was to be postponed. on amiodaorne, ASA, statin and BB
--- NOTE | 2019-09-30 16:45 | PDOC.HOSPP ---
- Subjective Encounter Date: 09/30/19 Encounter Time: 10:00 Subjective: Pt seen for followup re: CHF exac. Feels better today. - Objective Vital Signs & Weight: Vital Signs (12 hours) Temp Pulse Resp Pulse Ox 09/30/19 15:57 97.2 F L 09/30/19 12:22 97.6 F 09/30/19 08:00 95 09/30/19 07:26 97.6 F 09/30/19 07:00 85 17 92 L Weight Weight 130 lb 1.6 oz Most Recent Monitor Data Heart Rate from ECG 78 NIBP 100/55 NIBP BP-Mean 70 Respiration from ECG 19 SpO2 95 I&O: 09/29/19 09/30/19 10/01/19 06:59 06:59 06:59 Intake Total 1330 1453 Output Total 1050 1650 Balance 280 -197 Result Diagrams: 09/30/19 09:10 09/30/19 09:10 Additional Labs: Accuchecks 09/30/19 09/30/19 09/29/19 11:22 05:16 20:58 POC Glucose 198 H 141 H 175 H 09/29/19 09/29/19 20:24 17:21 POC Glucose 160 H 212 H Labs and MARs reviewed by me EKG Reviewed by me: Yes (Tele; NSR) Hospitalist ROS - Review of Systems Constitutional: denies: fever, chills, sweats, weakness, malaise Cardiovascular: denies: chest pain, palpitations, orthopnea, paroxysmal noc. dyspnea, edema, light headedness Skin: denies: rash, lesions, natividad, bruising - Medication Medications: Active Medications Generic Name Dose Route Start Last Admin Trade Name Freq PRN Reason Stop Dose Admin Albuterol Sulfate 2.5 mg 09/26/19 20:36 09/30/19 02:34 Ventolin NEB 2.5 mg [id number] PRN Administration Wheezing Albuterol/Ipratropium 3 ml 09/27/19 01:00 09/30/19 12:45 Duoneb NEB Not Given [id number] ELISABETH Amiodarone HCl 400 mg 09/29/19 21:00 09/30/19 09:18 Cordarone PO 400 mg BID [facility] Administration Aspirin 81 mg 09/27/19 09:00 09/30/19 09:20 Aspirin Chewable PO 81 mg DAILY [facility] Administration Atorvastatin Calcium 80 mg 09/26/19 21:00 09/29/19 20:15 Lipitor PO 80 mg HS [facility]ISABETH Administration Carvedilol 3.125 mg 09/26/19 21:00 09/30/19 09:20 Coreg PO 3.125 mg BID EL[facility]AB[facility] Administration Famotidine 20 mg 09/26/19 21:00 09/30/19 09:20 Pepcid PO 20 mg BID [facility]AB[facility] Administration Furosemide 20 mg 09/30/19 09:00 09/30/19 09:20 Lasix PO 20 mg DAILY [facility] Administration Insulin Human Lispro 0 units 09/26/19 20:36 09/29/19 17:15 Humalog SC 3 unit .MILD SLIDING SCALE PRN Administration Mild Correctional Scale Insulin Human Lispro 0 units 09/26/19 20:36 09/28/19 20:06 Humalog SC 2 unit .BEDTIME SLIDING SC PRN Administration Bedtime Correctional Scale Melatonin 3 mg 09/28/19 22:29 09/29/19 23:47 Melatonin PO 3 mg HS PRN Administration Insomnia Senna/Docusate Sodium 2 tab 09/26/19 20:36 09/29/19 08:44 Senokot S PO 2 tab BID PRN Administration Constipation Sodium Chloride 10 ml 09/26/19 20:01 09/29/19 08:44 Flush - Normal Saline IVF 10 ml PRN PRN Administration Saline Flush - Exam General Appearance: awake alert ENT: moist mucosa Neck: supple Heart: murmur present Respiratory: rales Gastrointestinal: soft, non-tender Musculoskeletal: no muscle wasting Psychiatric: normal affect, normal behavior Hosp A/P - Plan - Assessment (1) Acute diastolic congestive heart failure Status: Acute Qualifiers: Heart failure type: diastolic Qualified Code(s): I50.31 - Acute diastolic ( congestive) heart failure (2) Acute on chronic respiratory failure with hypoxia Code(s): J96.21 - ACUTE AND CHRONIC RESPIRATORY FAILURE WITH HYPOXIA Status: Acute (3) NSTEMI (non-ST elevated myocardial infarction) Code(s): I21.4 - NON-ST ELEVATION (NSTEMI) MYOCARDIAL INFARCTION Status: Acute (4) Acute exacerbation of emphysema Code(s): J43.9 - EMPHYSEMA, UNSPECIFIED Status: Acute (5) Hyperlipidemia Code(s): E78.5 - HYPERLIPIDEMIA, UNSPECIFIED Status: Chronic - Plan Continue IV furosemide, pt is clinically improving. Pt will need cardiac cath after resp status improves. Blood pressures low at times. Pt is on atorvastatin.
[2019-09-30] MEDS: Atorvastatin Calcium 40 MG TAB PO SCH (20:05)
[2019-10-01 04:20] LABS: #Eosinphils 0.1 thou/uL (0.0-0.7); #Lymphocytes 3.4 thou/uL (1.20-3.40); #Monocytes 2.4 thou/uL (0.11-0.59); #Neutrophils 11.2 thou/uL (1.40-6.50); %Basophils 0.1 % (0.0-1.0); %Eosinophils 0.4 % (0.0-10.0); %Lymphocytes 20.1 % (21.0-51.0); %Neutrophils 65.3 % (42.0-75.0); Hemoglobin 8.7 g/dL (12.0-16.0); Mean Corpuscular HGB CONC 32.2 g/dL (32.0-36.0); Mean Corpuscular Hemoglobin 29.1 pg (27.0-31.0); Mean Corpuscular Volume 90.3 fL (78.0-98.0); Mean Platelet Volume 8.6 fL (7.4-10.4); Platelet Count 309 thou/uL (130-400); RBC Distribution Width 16.9 % (11.5-14.5); White Blood Cell (WBC) Count 17.1 thou/uL (4.8-10.8)
[2019-10-01 04:56] LABS: Anion Gap 14 mmol/L (10-20); BUN (Urea Nitrogen) 19 mg/dL (9.8-20.1); Calc. Creatinine Clearance 53 mL/min (70-130); Calcium 9.1 mg/dL (7.8-10.44); Carbon Dioxide 24 mmol/L (23-31); Chloride 103 mmol/L (98-107); Estimated GFR-MDRD 63; Glucose 97 mg/dL (83-110); Potassium 3.8 mmol/L (3.5-5.1); Sodium 137 mmol/L (136-145)
[2019-10-01] MEDS: Famotidine 20 MG TAB PO SCH ×2 (08:00→20:40)
[2019-10-01] MEDS: Aspirin Chewable 81 MG TAB PO SCH (08:00)
[2019-10-01] MEDS: Furosemide 20 MG TAB PO SCH (08:00)
[2019-10-01] MEDS: Carvedilol 3.125 MG TAB PO SCH ×2 (08:00→20:40)
[2019-10-01] MEDS: Amiodarone 200 MG TAB PO SCH ×2 (08:00→20:40)
--- NOTE | 2019-10-01 08:01 | PDOC.CPN ---
- Subjective Date: 10/01/19 Time: 10:31 Interval history: NO changes noted overnight - Objective Allergies/Adverse Reactions: Allergies Allergy/AdvReac Type Severity Reaction Status Date / Time No Known Allergies Allergy Verified 09/27/19 00:30 Visit Medications: Current Medications Acetaminophen (Tylenol) 650 mg PO Q4H PRN PRN Reason: Headache/Fever/Mild Pain (1-3) Acetaminophen (Tylenol) 650 mg [place] Q4H PRN PRN Reason: Headache/Fever/Mild Pain (1-3) Albuterol Sulfate (Ventolin) 2.5 mg NEB [id number] PRN PRN Reason: Wheezing Last Admin: 09/30/19 02:34 Dose: 2.5 mg Albuterol/Ipratropium (Duoneb) 3 ml NEB [id number] [facility] Last Admin: 10/01/19 07:10 Dose: 3 ml Amiodarone HCl (Cordarone) 400 mg PO BID [facility] Last Admin: 09/30/19 20:05 Dose: 400 mg Aspirin (Aspirin Chewable) 81 mg PO DAILY [facility] Last Admin: 09/30/19 09:20 Dose: 81 mg Atorvastatin Calcium (Lipitor) 80 mg PO HS [facility] Last Admin: 09/30/19 20:05 Dose: 80 mg Beer (Beer) 1 each PO 1200,1700 [facility] Carvedilol (Coreg) 3.125 mg PO BID [facility] Last Admin: 09/30/19 20:26 Dose: Not Given Dextrose/Water (Dextrose 50%) 25 gm SLOW IVP PRN PRN PRN Reason: Hypoglycemia Famotidine (Pepcid) 20 mg PO BID [facility] Last Admin: 09/30/19 20:05 Dose: 20 mg Furosemide (Lasix) 20 mg PO DAILY [facility] Last Admin: 09/30/19 09:20 Dose: 20 mg Glucagon (Glucagon) 1 mg IM PRN PRN PRN Reason: Hypoglycemia Dextrose/Water (D5w) 1,000 mls @ 0 mls/hr IV .Q0M PRN PRN Reason: Hypoglycemia Insulin Human Lispro (Humalog) 0 units SC .MILD SLIDING SCALE PRN PRN Reason: Mild Correctional Scale Last Admin: 09/29/19 17:15 Dose: 3 unit Insulin Human Lispro (Humalog) 0 units SC .BEDTIME SLIDING SC PRN PRN Reason: Bedtime Correctional Scale Last Admin: 09/28/19 20:06 Dose: 2 unit Melatonin (Melatonin) 3 mg PO HS PRN PRN Reason: Insomnia Last Admin: 09/29/19 23:47 Dose: 3 mg Ondansetron HCl (Zofran Odt) 4 mg PO Q6H PRN PRN Reason: Nausea/Vomiting Ondansetron HCl (Zofran) 4 mg IVP Q6H PRN PRN Reason: Nausea/Vomiting Senna/Docusate Sodium (Senokot S) 2 tab PO BID PRN PRN Reason: Constipation Last Admin: 09/29/19 08:44 Dose: 2 tab Sodium Chloride (Flush - Normal Saline) 10 ml IVF PRN PRN PRN Reason: Saline Flush Last Admin: 09/29/19 08:44 Dose: 10 ml Sterile Water (Bacteriostatic Water) 1 ml FS PRN PRN PRN Reason: RECONSTITUTION Vital Signs & Weight: Vital Signs Temp Pulse Resp Pulse Ox 10/01/19 07:22 96.9 F L 10/01/19 07:10 84 19 97 10/01/19 04:00 97 F L 10/01/19 00:00 98 F 09/30/19 23:13 84 16 100 Weight 130 lb 11.2 oz - Physical Exam General: alert & oriented x3 Neck: no masses, no bruit Cardiac: regular rate and rhythm, regular rate Lungs: normal exam Neuro: grossly intact Abdomen: unremarkable - Labs Result Diagrams: 10/01/19 03:43 10/01/19 03:43 Troponin/CKMB CK-MB (CK-2) 16.9 ng/mL (0-6.6) H* 09/26/19 14:44 Troponin I 4.190 ng/mL (< 0.028) H* 09/27/19 03:16 - Assessment/Plan Assessment/Plan: Type I [place] tobacco use Hypoxia Hyperlipidemia DM 09/30 REC CV status stable Hb remains low ?Pt unsure is she is having angio. Will keep NPO to disdcuss with GM 09/29 REC CV status stable Anemia persists Initial recommendation of angio but pt states she was told yesterday it was to be postponed. on amiodaorne, ASA, statin and BB
[2019-10-01] MEDS ORDERED: Iron Sucrose Complex 200 MG in Sodium Chloride 0.9% 250 ML 250 ML IVPB SCH (08:45)
[2019-10-01] MEDS ORDERED: Iron, Sodium Ferric Gluconate 250 MG in Sodium Chloride 0.9% 250 ML 250 ML IVPB SCH (09:00)
[2019-10-01] MEDS ORDERED: GoLYTELY 4,000 ml Bottle PO SCH (11:45)
[2019-10-01] MEDS: BEER 1 CAN PO SCH ×2 (12:03→16:40)
--- NOTE | 2019-10-01 12:31 | CON ---
DATE OF CONSULTATION: 10/01/2019 REQUESTING PHYSICIAN: Dr. Pham. REASON FOR CONSULTATION: Iron-deficiency anemia. HISTORY OF PRESENT ILLNESS: Kaelyn Infante is a very pleasant 74-year-old woman with a long history of ongoing tobacco abuse as well as COPD. She has no prior history of gastrointestinal illness, has never undergone upper or lower endoscopy. She had a carotid endarterectomy in 2016. She was admitted to the hospital 5 days ago following an elective thumb surgery with severe shortness of breath and found to be hypoxic on presentation. Chest imaging demonstrated some pulmonary edema. She had elevated troponin, which went up to 4.1, as well as BNP of 493. She was treated with nebulizers, steroids, diuresis, and BiPAP temporarily. Her breathing rapidly improved. She is now doing much better on nasal cannula oxygen. She never really had any chest pain or abdominal pain with this. She has had a good appetite with no nausea, vomiting, diarrhea, constipation, melena, or hematochezia, but on presentation, she was also found to have a new anemia. Notably, last April 2019, her hemoglobin was normal at 14.5, but on admission here, was down to 9.4. Iron studies do show iron deficiency with iron 15 and only 4% saturation. She denies any overt bleeding from anywhere. There is no vaginal bleeding, nosebleeds, melena, hematochezia, or gross hematuria. Again, she has no GI symptomatology. She does take aspirin 325 mg daily at home, but no NSAIDs. She does not take any acid suppression, but does not really have any symptoms for which to take it. Cardiac catheterization is planned for later this admission, but we are requested to evaluate the iron-deficiency anemia prior to this, I spoke with Dr. Lindo, who feels she is at acceptable risk for an endoscopic procedure at this point. REVIEW OF SYSTEMS: Full review of systems including constitutional, head, eyes, ears, nose, throat, GI, , cardiovascular, respiratory, musculoskeletal, neurologic systems is negative except as noted in the HPI. PAST MEDICAL HISTORY: 1. Diabetes. 2. Hyperlipidemia. 3. Tobacco abuse, ongoing. 4. Right carotid endarterectomy in 2016. 5. TIA. 6. COPD. 7. Ventral hernia repair. 8. Tubal ligation. 9. Non ST-elevation [place] on 09/26/2019. ALLERGIES: NO KNOWN DRUG ALLERGIES. OUTPATIENT MEDICATIONS: 1. Aspirin 325 mg daily. 2. Zocor. INPATIENT MEDICATIONS: 1. DuoNeb. 2. Amiodarone. 3. Aspirin 81 mg daily. 4. Lipitor. 5. Coreg. 6. Pepcid 20 mg b.i.d. 7. Lasix 20 mg daily. 8. Insulin sliding scale. SOCIAL HISTORY: She has smoked 1 pack of cigarettes per day for 60 years. She has 2 to 3 alcoholic beverages per day. FAMILY HISTORY: Her mother had myocardial infarction at the young age of 36. PHYSICAL EXAMINATION: VITAL SIGNS: Temperature 96.9, pulse 77, blood pressure 102/56, 90% oxygen saturation on room air. GENERAL: A 74-year-old woman sitting up in bed comfortably, in no distress. SKIN: No jaundice. No rashes were palpable. EYES: No scleral icterus. Extraocular movements intact. ENT: Mucous membranes moist. No oral lesions. LYMPH: No submandibular or supraclavicular lymphadenopathy. THYROID: Nontender to palpation. HEART: Regular rate and rhythm. LUNGS: Clear to auscultation bilaterally. ABDOMEN: Bowel sounds are present. The abdomen is flat, soft, nontender to palpation throughout. EXTREMITIES: No peripheral edema. VESSELS: Radial pulses 2+ bilaterally. NEURO: Cranial nerves 2 through 12 intact bilaterally. No focal deficits. LABORATORY STUDIES: Hemoglobin 8.7, WBC 17.1, platelets 309. Calcium 9.1. Sodium 137, potassium 3.8, BUN 19, creatinine 0.88, glucose 142, LDH 236, ferritin 19.1, iron 15, TIBC 400, 4% iron saturation. LFTs all normal with total bilirubin 0.5, alkaline phosphatase 84, AST 34, ALT 16, albumin 4.1. IMAGING STUDIES: CT of chest showed no evidence of pulmonary embolus. There was some pulmonary edema as well as moderate emphysematous changes. Echocardiogram demonstrated ejection fraction of 50% to 55%. ASSESSMENT AND PLAN: 1. Iron-deficiency anemia, new since April 2019, with no report of overt bleeding from anywhere. 2. Non ST-elevation myocardial infarction on admission, symptoms all improved. 3. Chronic obstructive pulmonary disease, with long-term tobacco abuse. She has new iron-deficiency anemia just over the past 5 months, in the context of no overt bleeding. We discussed possible reasons for iron-deficiency anemia. Occult GI bleeding lesion would lead the differential. Agree that further investigation is warranted. Dr. Lindo feels she is acceptable risk for endoscopic procedure. I had a long discussion with the patient. She desires to proceed. We will plan for diagnostic EGD and colonoscopy tomorrow following bowel preparation this evening. Further recommendations following endoscopy. Thank you for the consultation. Please call anytime with questions or concerns. Job ID: [id number]
--- NOTE | 2019-10-01 13:18 | PDOC.HOSPP ---
- Subjective Encounter Date: 10/01/19 Encounter Time: 09:00 Subjective: Pt seen for followup for CHF (diastolic) exac. Feels well, no complaints. - Objective Vital Signs & Weight: Vital Signs (12 hours) Temp Pulse Resp Pulse Ox 10/01/19 11:22 98.2 F 10/01/19 08:00 96 10/01/19 07:22 96.9 F L 10/01/19 07:10 84 19 97 10/01/19 04:00 97 F L Weight Weight 130 lb 11.2 oz Most Recent Monitor Data Heart Rate from ECG 77 NIBP 102/56 NIBP BP-Mean 71 Respiration from ECG 26 SpO2 97 I&O: 09/30/19 10/01/19 10/02/19 06:59 06:59 06:59 Intake Total 1453 1050 Output Total 1650 1225 Balance -197 -175 Result Diagrams: 10/01/19 03:43 10/01/19 03:43 Additional Labs: Accuchecks 10/01/19 10/01/19 09/30/19 10:38 05:45 20:09 POC Glucose 142 H 124 H 187 H 09/30/19 16:16 POC Glucose 205 H Labs and MARs reviewed by me EKG Reviewed by me: Yes (Tele: NSR) Hospitalist ROS - Review of Systems Cardiovascular: denies: chest pain, palpitations, orthopnea, paroxysmal noc. dyspnea, edema, light headedness Gastrointestinal: denies: nausea, vomiting, abdominal pain, melena, hematochezia - Medication Medications: Active Medications Generic Name Dose Route Start Last Admin Trade Name Freq PRN Reason Stop Dose Admin Acetaminophen 650 mg 09/26/19 20:36 10/01/19 08:00 Tylenol PO 650 mg Q4H PRN Administration Headache/Fever/Mild Pain (1-3) Albuterol Sulfate 2.5 mg 09/26/19 20:36 09/30/19 02:34 Ventolin NEB 2.5 mg [id number] PRN Administration Wheezing Albuterol/Ipratropium 3 ml 09/27/19 01:00 10/01/19 07:10 Duoneb NEB 3 ml [id number] ELISABETH Administration Amiodarone HCl 400 mg 09/29/19 21:00 10/01/19 08:00 Cordarone PO 400 mg BID ELISABETH Administration Aspirin 81 mg 09/27/19 09:00 10/01/19 08:00 Aspirin Chewable PO 81 mg DAILY ELISABETH Administration Atorvastatin Calcium 80 mg 09/26/19 21:00 09/30/19 20:05 Lipitor PO 80 mg HS ELISABETH Administration Beer 1 each 10/01/19 12:00 10/01/19 12:03 Beer PO 1 each 1200,1700 ELISABETH Administration Carvedilol 3.125 mg 09/26/19 21:00 10/01/19 08:00 Coreg PO 3.125 mg BID ELISABETH Administration Famotidine 20 mg 09/26/19 21:00 10/01/19 08:00 Pepcid PO 20 mg BID ELISABETH Administration Furosemide 20 mg 09/30/19 09:00 10/01/19 08:00 Lasix PO 20 mg DAILY ELISABETH Administration Insulin Human Lispro 0 units 09/26/19 20:36 09/29/19 17:15 Humalog SC 3 unit .MILD SLIDING SCALE PRN Administration Mild Correctional Scale Insulin Human Lispro 0 units 09/26/19 20:36 09/28/19 20:06 Humalog SC 2 unit .BEDTIME SLIDING SC PRN Administration Bedtime Correctional Scale Melatonin 3 mg 09/28/19 22:29 09/29/19 23:47 Melatonin PO 3 mg HS PRN Administration Insomnia Senna/Docusate Sodium 2 tab 09/26/19 20:36 09/29/19 08:44 Senokot S PO 2 tab BID PRN Administration Constipation Sodium Chloride 10 ml 09/26/19 20:01 09/29/19 08:44 Flush - Normal Saline IVF 10 ml PRN PRN Administration Saline Flush - Exam General Appearance: awake alert Eye: anicteric sclera ENT: moist mucosa Neck: supple Heart: RRR Respiratory: CTAB Gastrointestinal: soft, non-tender Psychiatric: normal affect, normal behavior Hosp A/P - Plan - Assessment (1) Acute diastolic congestive heart failure Status: Acute Qualifiers: Heart failure type: diastolic Qualified Code(s): I50.31 - Acute diastolic ( congestive) heart failure (2) Acute on chronic respiratory failure with hypoxia Code(s): J96.21 - ACUTE AND CHRONIC RESPIRATORY FAILURE WITH HYPOXIA Status: Acute (3) NSTEMI (non-ST elevated myocardial infarction) Code(s): I21.4 - NON-ST ELEVATION (NSTEMI) MYOCARDIAL INFARCTION Status: Acute (4) Acute exacerbation of emphysema Code(s): J43.9 - EMPHYSEMA, UNSPECIFIED Status: Acute (5) Iron deficiency Status: Chronic (5) Hyperlipidemia Code(s): E78.5 - HYPERLIPIDEMIA, UNSPECIFIED Status: Chronic - Plan Continue IV furosemide, pt is clinically improving. Pt will need cardiac cath after resp status improves and GI workup completed re : iron deficiency. Consult GI service re: iron deficiency. Episodes of hypotension. Pt is on atorvastatin.
[2019-10-01] MEDS: Atorvastatin Calcium 40 MG TAB PO SCH (20:40)
[2019-10-02 04:09] LABS: #Basophils 0.1 thou/uL (0.0-0.2); #Eosinphils 0.1 thou/uL (0.0-0.7); #Lymphocytes 2.4 thou/uL (1.20-3.40); #Monocytes 2.4 thou/uL (0.11-0.59); %Basophils 0.4 % (0.0-1.0); %Eosinophils 0.6 % (0.0-10.0); %Lymphocytes 14.3 % (21.0-51.0); %Monocytes 14.1 % (0.0-10.0); %Neutrophils 70.6 % (42.0-75.0); Hemoglobin 8.6 g/dL (12.0-16.0); Mean Corpuscular HGB CONC 32.1 g/dL (32.0-36.0); Mean Corpuscular Hemoglobin 28.8 pg (27.0-31.0); Mean Corpuscular Volume 89.6 fL (78.0-98.0); Mean Platelet Volume 8.8 fL (7.4-10.4); Platelet Count 320 thou/uL (130-400); Red Blood Cell (RBC) Count 2.97 mill/uL (4.20-5.40); White Blood Cell (WBC) Count 16.9 thou/uL (4.8-10.8)
[2019-10-02 04:32] LABS: Anion Gap 14 mmol/L (10-20); BUN (Urea Nitrogen) 19 mg/dL (9.8-20.1); Calc. Creatinine Clearance 56 mL/min (70-130); Calcium 8.5 mg/dL (7.8-10.44); Carbon Dioxide 24 mmol/L (23-31); Chloride 101 mmol/L (98-107); Estimated GFR-MDRD 67; Glucose 122 mg/dL (83-110); Potassium 3.6 mmol/L (3.5-5.1); Sodium 135 mmol/L (136-145)
[2019-10-02] MEDS ORDERED: Promethazine HCl 25 MG/ML VIAL SLOW IVP PRN (08:55)
[2019-10-02] MEDS ORDERED: Ondansetron HCl/PF 4 MG/2 ML Vial IVP PRN (08:55)
[2019-10-02] MEDS ORDERED: Promethazine HCl 25 MG/ML VIAL IM PRN (08:55)
[2019-10-02] MEDS ORDERED: Lidocaine 1% PF 5 ML VIAL ONE (09:39)
[2019-10-02] MEDS ORDERED: EPHEDRINE 25 MG/5 ML SYRINGE ONE (09:39)
[2019-10-02] MEDS ORDERED: PROPOFOL 200 MG/20 ML VIAL ONE (09:39)
--- NOTE | 2019-10-02 09:48 | OP ---
DATE OF PROCEDURE: 10/02/2019 LUMBER ESTIMATOR SURGEON: None. PROCEDURES PERFORMED: 1. Esophagogastroduodenoscopy, diagnostic. 2. Colonoscopy with biopsies and snare polypectomy. INDICATION: Iron-deficiency anemia, new over the past 6 months. MEDICATIONS: See Anesthesia record. FINDINGS: After discussion of the risks, benefits, and alternatives of the procedure, informed consent was obtained and witnessed. Pre-endoscopic cardiopulmonary examination was satisfactory. Time-out was performed before sedation was achieved. Sedation was achieved with Anesthesia assistance in the endoscopy unit. A Pentax adult upper endoscope was placed into the oropharynx and passed through the cricopharyngeus under direct visualization. The esophageal mucosa appeared normal throughout with a normal-appearing Z-line. The endoscope was advanced into the stomach. Forward and retroflexed views of the entire gastric mucosa were obtained. The gastric mucosa appeared normal throughout. The endoscope was advanced through the pylorus and into the first and second portions of the duodenum, which also appeared normal. The upper endoscope was completely withdrawn and the patient was repositioned. Digital rectal exam was performed, which demonstrated some external hemorrhoidal skin tags. A Pentax adult colonoscope was inserted into the anus and passed forward to the cecum in the usual fashion with some difficulty due to tortuosity of the colon and looping of the scope. Using manual pressure and loop reduction methods, I was able to reach the cecal base. This was identified by the ileocecal valve as well as the area of the appendiceal orifice. The terminal ileum was not intubated. The colonoscope was slowly withdrawn in a gradual circumferential manner with careful examination of the entire colonic mucosa. The quality of the prep was adequate. In the cecum, there was a spreading mass. This was relatively flat, but it covered an extensive surface area of the cecum and essentially obscured the area of the appendiceal orifice. I was not able to visualize any ulcerations of the mass, but it was diffusely friable. Multiple biopsies were obtained from this mass for histology. There were 2 larger flat polyps in this vicinity, essentially next to the ileocecal valve. These were not endoscopically resectable either. In the distal descending and sigmoid colon, there were 6 sessile polyps, measuring between 3 and 8 mm in diameter. These were all completely resected with hot snare polypectomy, though only partially retrieved. Retroflexion in the rectum demonstrated no additional abnormalities. The colonoscope was then completely withdrawn and the patient allowed to recover. The patient tolerated the procedure well. There were no immediate postprocedure complications. IMPRESSION: 1. Cecal mass, nonobstructing, friable. Biopsied for histology. 2. Two larger flat polyps next to the ileocecal valve, not endoscopically resectable. 3. Six sigmoid colon polyps, between 3 and 8 mm in diameter, all completely removed with hot snare polypectomy, partially retrieved. 4. Normal esophagogastroduodenoscopy. RECOMMENDATIONS: 1. Surgical consultation for consideration of right hemicolectomy. 2. Follow up pathology results on cecal mass biopsies and sigmoid polyps. 3. CT of the abdomen and pelvis for staging. 4. Repeat colonoscopy at a 6-month interval. Job ID: [id number]
--- NOTE | 2019-10-02 10:02 | PRG ---
DATE OF SERVICE: 09/30/2019 SUBJECTIVE: Kaelyn Infante denied shortness of breath or chest pain. OBJECTIVE: VITAL SIGNS: She is afebrile. Heart rate 78, respiratory rate 18, blood pressure 122/65. Tentatively, she tells me to be cathed on Wednesday LUNGS: Clear. HEART: Regular rhythm. ABDOMEN: Soft. EXTREMITIES: Without edema. IMPRESSION: 1. Non-Q-wave myocardial infarction. 2. Tobacco use. 3. Beer on a daily basis. She says she does not plan to quit drinking beer and would love to have a beer with her meals. She was under the impression that I wanted her to postpone her cardiac procedure but that was not true. She misunderstood the conversation yesterday. I explained to her that if yesterday was Wednesday, she probably would have had a heart catheterization on . I explained to her that since it was Wednesday , it likely would be Wednesday at the earliest. I find no contraindication to cardiac catheterization. Job ID: [id number] MTDD
[2019-10-02] MEDS: Ferrous Sulfate 325 MG TAB PO SCH (10:34)
[2019-10-02] MEDS: Amiodarone 200 MG TAB PO SCH ×2 (10:35→20:50)
[2019-10-02] MEDS: Aspirin Chewable 81 MG TAB PO SCH (10:37)
[2019-10-02] MEDS: Carvedilol 3.125 MG TAB PO SCH ×2 (10:37→20:51)
[2019-10-02] MEDS: Famotidine 20 MG TAB PO SCH ×2 (10:38→20:51)
[2019-10-02] MEDS: Furosemide 20 MG TAB PO SCH (10:38)
[2019-10-02] MEDS ORDERED: Communication Order-Pharmacy FS SCH (10:45)
--- NOTE | 2019-10-02 11:38 | CT ---
CT abdomen and pelvis with IV and oral contrast HISTORY: Cecal mass. Colon cancer. Initial staging. FINDINGS: Small amount of bilateral pleural fluid and bibasilar lung atelectasis is partially visuali zed. Within the lateral segment of the right middle lobe, a 0.3 cm subpleural nodule is present. No other lung nodules are evident at the lung bases. A gastroesophageal lymph node is 1.0 cm greatest diameter. No enlarged lymph nodes are evident. No li nazario mass is visible. No free fluid or free air. Prominent calcification throughout the arterial structures, including at the left renal hilum. Fusifo rm dilatation of the lower abdominal aorta measures up to 3.0 cm greatest transverse diameter. Posterior disc bulge and disc space narrowing are evident at the L1-2 level on the sagittal images. A lobular soft tissue density filling defect within the cecum at the origin of the appendix measures up to 1.9 cm x 1.5 cm greatest diameters on the axial images. Urinary bladder has a normal appearance. IMPRESSION: No convincing evidence of metastatic disease. Normal appearance of the liver. Tiny nonspecific subpleural nodule within the right lung middle lobe. Small bilateral pleural effusio ns. Mild fusiform lower abdominal aortic aneurysm. Atherosclerosis. Mild degenerative changes lumbar spine including disc bulge at the L2-3 level.
[2019-10-02] MEDS ORDERED: Iopamidol 370 76% 50 ML VIAL FS ONE (13:35)
[2019-10-02] MEDS ORDERED: Iopamidol-370 76% 500 ML 1 ML ONE (13:35)
[2019-10-02] MEDS: BEER 1 CAN PO SCH ×2 (15:35→18:16)
--- NOTE | 2019-10-02 17:42 | CON ---
DATE OF CONSULTATION: 10/02/2019 REQUESTING PHYSICIAN: Dr. Nam Pillai. HISTORY: Ms. Infante is a 74-year-old woman, who underwent excision of a lesion on her right hand on 09/25/2019 24 hours later, the patient presented to emergency department with dyspnea and was admitted for acute hypoxemic respiratory failure, rescued with noninvasive mechanical ventilator support. Interval workup has excluded pulmonary embolism. Echocardiogram was obtained, which established ejection fraction of over 50%. Serial troponin has showed troponin initially of 0.42, to 2.04, to 3.5, to 4.2 ng/mL. The patient was deemed to have suffered afv-EY-[id number] myocardial infarction. Coronary angiography is being contemplated for tomorrow. The patient was noted with a hemoglobin of 9.0 on admission, which is currently stable at 8.6. Upon questioning, the patient reports some history of intermittent melena over the last 6 months, associated with profound progressive fatigue. She underwent upper and lower endoscopies this morning, where a nonobstructive cecal mass as well as large polyps at the ileocecal junction was discovered. Biopsies have been taken and Pathology report is pending at this time. At the time of my evaluation, the patient denies any abdominal pain, nausea, or vomiting. She denies any unexplained weight loss. PAST MEDICAL HISTORY: Pertinent for COPD, type 2 diabetes mellitus, hyperlipidemia, peripheral vascular disease, and most recent [id number] myocardial infarction on 09/26/2019, associated with hypoxemic respiratory failure, which has since resolved. PAST SURGICAL HISTORY: Pertinent for tubal ligation, ventral hernia repair, right carotid endarterectomy in 2016, excision of right thumb lesion on 09/25/2019, and upper and lower endoscopies this morning. SOCIAL HISTORY: The patient has over 50-pack year cigarette smoking history. She still smokes a pack of cigarettes per day. She admits to 2 to 3 hard alcoholic beverages every evening. FAMILY HISTORY: Noncontributory for this patient's age. PRE-HOSPITALIZATION MEDICATIONS: Include; 1. Aspirin 325 mg p.o. daily. 2. Simvastatin 80 mg p.o. daily. ALLERGIES: THE PATIENT DENIES ANY KNOWN DRUG ALLERGIES. REVIEW OF SYSTEMS: Ten-point review of systems essentially unremarkable except as stated in past medical history and chief complaint. PHYSICAL EXAMINATION: GENERAL: Reveals a 74-year-old, normally developed woman, who is otherwise coherent, interactive, and appears stated age. The patient is alert and oriented x3, appears to be in no acute distress at the time of my evaluation. VITAL SIGNS: Include blood pressure 153/58, pulse 76, respiratory rate is 19, temperature 97.7 degrees Fahrenheit, oxygen saturation 94% on 3 L by nasal cannula oxygen. HEENT: Pupils are equal, round, reactive to light and accommodation. She has no jugular venous distention noted. HEART: Reveals regular rate and rhythm. LUNGS: Reveal bibasilar rhonchi. Breathing is regular and nonlabored. ABDOMEN: Soft, moderately distended, nontender to palpation. Liver and spleen are nonpalpable below costal margin. NEUROLOGIC: Reveals no focal deficits present. LABORATORY FINDINGS: Include CBC with 16,900 white blood cells, hemoglobin and hematocrit are 8.6 and 26.6 respectively. Platelet count is 320,000. Metabolic profile; sodium 135, potassium 3.6, chloride is 101, bicarb is 24, BUN 19, creatinine 0.83, glucose is 122. IMPRESSIONS: 1. 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 2. Recent [id number] myocardial infarction. RECOMMENDATIONS: The patient will certainly need right hemicolectomy with primary anastomosis. She has been evaluated by Cardiology with regard to the recent [id number]-[id number] myocardial infarction and coronary angiography is contemplated for tomorrow. I have discussed with the gluing machine offbearer and it is possible that intervention might be warranted or may even require coronary arterial bypass graft. This may delay the treatment of the colon cancer by at least a month. The patient is made aware that evaluation of cardiac status takes precedence at this time, and once she has been deemed stable from the perspective of cardiac disease, an elective right hemicolectomy will be performed. There is therefore no acute surgical indication for this patient at this time. The patient will need to be seen outpatient in the General Surgery Clinic, and we will coordinate with Cardiology and Primary Service for future elective right hemicolectomy with primary anastomosis. Above findings and recommendations have been discussed with the patient, who indicates understanding of information given. I have answered her questions. This visit occurred in the presence of the patient's nurse. Thank you again, Dr. Pillai, for allowing me the opportunity to participate in the care of this patient. Job ID: [id number] [facility]
--- NOTE | 2019-10-02 18:01 | PDOC.HOSPP ---
- Subjective Encounter Date: 10/02/19 Encounter Time: 11:30 Subjective: pt up in bed no complains. she was seen earlier by surgery for her abnormal colonoscopy. - Objective Vital Signs & Weight: Vital Signs (12 hours) Temp Pulse Resp Pulse Ox 10/02/19 15:25 98.3 F 10/02/19 13:32 96 10/02/19 13:28 77 16 96 10/02/19 11:46 97.7 F 10/02/19 08:00 32 L 10/02/19 06:53 96 Weight Weight 129 lb 4.8 oz Most Recent Monitor Data Heart Rate from ECG 68 NIBP 107/46 NIBP BP-Mean 66 Respiration from ECG 17 SpO2 95 I&O: 10/01/19 10/02/19 10/03/19 06:59 06:59 06:59 Intake Total 1050 2850 Output Total 1225 2940 Balance -175 -90 Result Diagrams: 10/02/19 03:31 10/02/19 03:31 Additional Labs: Accuchecks 10/02/19 10/02/19 10/02/19 16:55 11:00 05:35 POC Glucose 126 H 128 H 125 H 10/02/19 10/01/19 01:32 20:31 POC Glucose 183 H 135 H Hospitalist ROS - Review of Systems ENT: denies: ear pain, ear discharge, nose pain, nose discharge, nose congestion , mouth pain, mouth swelling, throat pain, throat swelling, other Respiratory: denies: cough, dry, shortness of breath, hemoptysis, SOB with excertion, pleuritic pain, sputum, wheezing, other Cardiovascular: denies: chest pain, palpitations, orthopnea, paroxysmal noc. dyspnea, edema, light headedness, other - Medication Medications: Active Medications Generic Name Dose Route Start Last Admin Trade Name Freq PRN Reason Stop Dose Admin Acetaminophen 650 mg 09/26/19 20:36 10/01/19 08:00 Tylenol PO 650 mg Q4H PRN Administration Headache/Fever/Mild Pain (1-3) Albuterol Sulfate 2.5 mg 09/26/19 20:36 09/30/19 02:34 Ventolin NEB 2.5 mg [id number] PRN Administration Wheezing Albuterol/Ipratropium 3 ml 09/27/19 01:00 10/02/19 13:28 Duoneb NEB 3 ml [id number] ELISABETH Administration Amiodarone HCl 400 mg 09/29/19 21:00 10/02/19 10:35 Cordarone PO 400 mg BID ELISABETH Administration Aspirin 81 mg 09/27/19 09:00 10/02/19 10:37 Aspirin Chewable PO 81 mg DAILY ELISABETH Administration Atorvastatin Calcium 80 mg 09/26/19 21:00 10/01/19 20:40 Lipitor PO 80 mg HS ELISABETH Administration Beer 1 each 10/01/19 12:00 10/02/19 15:35 Beer PO 1 each 1200,1700 ELISABETH Administration Carvedilol 3.125 mg 09/26/19 21:00 10/02/19 10:37 Coreg PO 3.125 mg BID ELISABETH Administration Famotidine 20 mg 09/26/19 21:00 10/02/19 10:38 Pepcid PO 20 mg BID ELISABETH Administration Ferrous Sulfate 325 mg 10/02/19 08:00 10/02/19 10:34 Feosol PO 325 mg QAM-WM ELISABETH Administration Furosemide 20 mg 09/30/19 09:00 10/02/19 10:38 Lasix PO 20 mg DAILY ELISABETH Administration Insulin Human Lispro 0 units 09/26/19 20:36 09/29/19 17:15 Humalog SC 3 unit .MILD SLIDING SCALE PRN Administration Mild Correctional Scale Insulin Human Lispro 0 units 09/26/19 20:36 09/28/19 20:06 Humalog SC 2 unit .BEDTIME SLIDING SC PRN Administration Bedtime Correctional Scale Melatonin 3 mg 09/28/19 22:29 09/29/19 23:47 Melatonin PO 3 mg HS PRN Administration Insomnia Senna/Docusate Sodium 2 tab 09/26/19 20:36 09/29/19 08:44 Senokot S PO 2 tab BID PRN Administration Constipation Sodium Chloride 10 ml 09/26/19 20:01 10/01/19 20:44 Flush - Normal Saline IVF 10 ml PRN PRN Administration Saline Flush - Exam General - other findings: appears pale Neck: negative: supple, symmetric, no JVD, no thyromegaly, no lymphadenopathy, no carotid bruit, JVD Heart: negative: RRR, no murmur, no gallops, no rubs, normal peripheral pulses, irregular, diminshed peripheral pulses, murmur present, II/IV, III/IV Respiratory: negative: CTAB, no wheezes, no rales, no ronchi, normal chest expansion, no tachypnea, normal percussion, rales, rhonchi, tachypneic, wheezes Gastrointestinal: soft, non-tender, normal bowel sounds Hosp A/P - Plan (1) Acute diastolic congestive heart failure Status: Acute Qualifiers: Heart failure type: diastolic Qualified Code(s): I50.31 - Acute diastolic ( congestive) heart failure (2) Acute on chronic respiratory failure with hypoxia Code(s): J96.21 - ACUTE AND CHRONIC RESPIRATORY FAILURE WITH HYPOXIA Status: Acute (3) NSTEMI (non-ST elevated myocardial infarction) Code(s): I21.4 - NON-ST ELEVATION (NSTEMI) MYOCARDIAL INFARCTION Status: Acute (4) Acute exacerbation of emphysema Code(s): J43.9 - EMPHYSEMA, UNSPECIFIED Status: Acute (5) Iron deficiency Status: Chronic (5) Hyperlipidemia Code(s): E78.5 - HYPERLIPIDEMIA, UNSPECIFIED Status: Chronic - Plan Continue IV furosemide, pt is clinically improving. Pt will need cardiac cath after resp status improves and GI workup completed re : iron deficiency. Consult GI service re: iron deficiency. Episodes of hypotension. Pt is on atorvastatin. 10/01 pt was found to be anemic, she underwent colonoscopy which indicated a friable mass. she has been seen by surgery. she also has nstemi and will need a cardiac cath. She is doing well respiratory snow. she is on oxygen 2L.
[2019-10-02] MEDS: Atorvastatin Calcium 40 MG TAB PO SCH (20:51)
[2019-10-03 04:15] LABS: #Eosinphils 0.2 thou/uL (0.0-0.7); #Lymphocytes 2.8 thou/uL (1.20-3.40); #Monocytes 1.9 thou/uL (0.11-0.59); #Neutrophils 9.3 thou/uL (1.40-6.50); %Basophils 0.2 % (0.0-1.0); %Eosinophils 1.6 % (0.0-10.0); %Lymphocytes 19.6 % (21.0-51.0); %Monocytes 13.3 % (0.0-10.0); %Neutrophils 65.3 % (42.0-75.0); Hemoglobin 8.7 g/dL (12.0-16.0); Mean Corpuscular HGB CONC 32.9 g/dL (32.0-36.0); Mean Corpuscular Hemoglobin 29.2 pg (27.0-31.0); Mean Corpuscular Volume 88.9 fL (78.0-98.0); Mean Platelet Volume 8.7 fL (7.4-10.4); Platelet Count 322 thou/uL (130-400); RBC Distribution Width 17.2 % (11.5-14.5); Red Blood Cell (RBC) Count 2.96 mill/uL (4.20-5.40); White Blood Cell (WBC) Count 14.2 thou/uL (4.8-10.8)
[2019-10-03 04:27] LABS: Anion Gap 15 mmol/L (10-20); BUN (Urea Nitrogen) 13 mg/dL (9.8-20.1); Calc. Creatinine Clearance 62 mL/min (70-130); Carbon Dioxide 21 mmol/L (23-31); Chloride 104 mmol/L (98-107); Estimated GFR-MDRD 76; Glucose 82 mg/dL (83-110); Potassium 3.8 mmol/L (3.5-5.1); Sodium 136 mmol/L (136-145)
[2019-10-03] MEDS ORDERED: Sodium Chloride 0.9% 1,000 ML IV SCH ×2 (06:00→09:28)
[2019-10-03] MEDS: Amiodarone 200 MG TAB PO SCH ×2 (06:08→20:32)
[2019-10-03] MEDS: Famotidine 20 MG TAB PO SCH ×2 (06:08→20:33)
[2019-10-03] MEDS: Ferrous Sulfate 325 MG TAB PO SCH (06:08)
[2019-10-03] MEDS: Carvedilol 3.125 MG TAB PO SCH ×2 (06:09→20:33)
[2019-10-03] MEDS: Aspirin Chewable 81 MG TAB PO SCH (06:09)
[2019-10-03] MEDS ORDERED: Heparin 10,000 UNITS/1 ML VIAL ONE (07:46)
[2019-10-03] MEDS ORDERED: Midazolam HCl 2 mg/2 ml Vial ONE (08:41)
[2019-10-03] MEDS ORDERED: Fentanyl 100 MCG/2 ML VIAL ONE (08:42)
[2019-10-03] MEDS ORDERED: Iopamidol 370 76% 100 ML VIAL ONE (09:09)
[2019-10-03] MEDS ORDERED: Iopamidol 370 76% 50 ML VIAL FS ONE (09:09)
[2019-10-03] MEDS ORDERED: Acetaminophen/Codeine 30-300mg Tablet PO PRN ×2 (09:27)
[2019-10-03] MEDS ORDERED: Nitroglycerin 0.4 MG TAB (25 Tab Bottle) SL PRN (09:27)
[2019-10-03] MEDS ORDERED: Sodium Chloride 0.9% 200 ML IV PRN (09:27)
[2019-10-03] MEDS ORDERED: Furosemide 20 MG TAB PO SCH (10:15)
[2019-10-03] MEDS ORDERED: Lisinopril 5 MG TAB PO SCH (10:15)
[2019-10-03] MEDS: Furosemide 20 MG TAB PO SCH (10:52)
[2019-10-03 11:02] LABS: Hemoglobin 8.6 g/dL (12.0-16.0); Platelet Count 333 thou/uL (130-400)
[2019-10-03] MEDS: BEER 1 CAN PO SCH ×2 (12:56→17:36)
--- NOTE | 2019-10-03 15:42 | PRG ---
DATE OF SERVICE: 10/03/2019 SUBJECTIVE: Ms. Infante did well overnight. She has undergone cardiac catheterization. She also had colonoscopy. She felt the need resection of large colon lesion. OBJECTIVE: On exam, she is in no distress. She has no wheezes. IMPRESSION: 1. COPD? No clinical issues at this time. 2. Atrial fibrillation. 3. Coronary artery disease. 4. Status post resection of colon polyps seen with colon biopsies. No malignancy has been identified. She is tentatively being schedule for surgery. Job ID: [id number]
--- NOTE | 2019-10-03 18:34 | PRG ---
DATE OF SERVICE: 10/03/2019 SUBJECTIVE: Ms. Infante is feeling well. She underwent a cardiac catheterization earlier today, that report is not back, but per her recollection, it was satisfactory. She was seen by Dr. Montiel, and plan is for right hemicolectomy in the near future. She has no other symptoms to report. No chest pain or shortness of breath today. OBJECTIVE: VITAL SIGNS: Temperature 97.4, pulse 78, blood pressure 129/57, oxygen saturation 93% on room air. GENERAL: No acute distress. HEART: Regular rate and rhythm. LUNGS: Clear to auscultation bilaterally. ABDOMEN: Soft, nontender to palpation. EXTREMITIES: No peripheral edema. LABORATORY STUDIES: Hemoglobin stable at 8.6, WBCs 14.2, platelets 333. Sodium 136, potassium 3.8, BUN 13, creatinine 0.79, glucose 147. IMAGING STUDIES: CT of the abdomen and pelvis from yesterday demonstrated no evidence of any metastatic disease. There is lobular soft tissue density filling defect within the cecum at the origin of the appendix measuring 1.9 x 1.5 cm, and this is consistent with endoscopic appearance. 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 Other colon polyps were mixture of adenomas and hyperplastic polyp. ASSESSMENT AND PLAN: 1. Cecal mass. This is at least an advanced polyp with focal high-grade dysplasia, though suspect it may actually represent early adenocarcinoma. 2. Unresectable polyps in the region of the ileocecal valve. I appreciate the assistance of Dr. Montiel. He is planning on right hemicolectomy. There is no evidence of metastatic disease on the CT scan. There are no other specific GI recommendations at this time. I will plan to see her back in clinic in the next 6 weeks or so. We will likely plan on repeat colonoscopy at 6- to 12-month interval for surveillance. 3. GI will sign off. Please call back anytime with questions or concerns. Job ID: [id number]
[2019-10-03] MEDS: Atorvastatin Calcium 40 MG TAB PO SCH (20:33)
[2019-10-04 05:27] LABS: Anion Gap 13 mmol/L (10-20); BUN (Urea Nitrogen) 12 mg/dL (9.8-20.1); Calc. Creatinine Clearance 58 mL/min (70-130); Calcium 8.7 mg/dL (7.8-10.44); Carbon Dioxide 21 mmol/L (23-31); Chloride 103 mmol/L (98-107); Estimated GFR-MDRD 69; Glucose 94 mg/dL (83-110); Potassium 3.5 mmol/L (3.5-5.1); Sodium 133 mmol/L (136-145)
[2019-10-04 05:37] LABS: Band 1 % (5-11); Eosinophils 3 % (0-10); Hemoglobin 8.4 g/dL (12.0-16.0); Lymphocytes 16 % (21-51); MDiff Complete? YES; Mean Corpuscular HGB CONC 32.7 g/dL (32.0-36.0); Mean Corpuscular Hemoglobin 29.3 pg (27.0-31.0); Mean Corpuscular Volume 89.5 fL (78.0-98.0); Monocytes 15 % (0-10); Neutrophil 65 % (42-75); Platelet Count 328 thou/uL (130-400); RBC Distribution Width 17.7 % (11.5-14.5); Red Blood Cell (RBC) Count 2.85 mill/uL (4.20-5.40); White Blood Cell (WBC) Count 14.1 thou/uL (4.8-10.8)
--- NOTE | 2019-10-04 07:55 | PDOC.HOSPP ---
- Subjective Encounter Date: 10/03/19 Encounter Time: 13:00 Subjective: pt up in bed denies any sob or chest pain. she is post cardiac cath. - Objective Vital Signs & Weight: Vital Signs (12 hours) Temp Pulse Resp BP Pulse Ox 10/04/19 07:38 93 L 10/04/19 07:10 98.2 F 68 19 145/63 H 93 L 10/04/19 06:54 63 18 100 10/04/19 04:55 99.0 F 73 19 98/52 L 98 10/04/19 00:30 95 10/03/19 23:57 97.9 F 74 16 127/60 74 L 10/03/19 23:48 74 16 96 10/03/19 20:25 96 10/03/19 20:00 98.0 F 76 20 143/62 H 96 Weight Weight 129 lb 6.4 oz Most Recent Monitor Data Heart Rate from ECG 68 NIBP 121/47 NIBP BP-Mean 71 Respiration from ECG 17 SpO2 98 I&O: 10/03/19 10/04/19 10/05/19 06:59 06:59 06:59 Intake Total 1810 1320 Output Total 1950 Balance -140 1320 Result Diagrams: 10/04/19 04:37 10/04/19 04:37 Additional Labs: Accuchecks 10/03/19 10/03/19 10/03/19 20:20 16:42 11:10 POC Glucose 110 147 H 106 Hospitalist ROS - Review of Systems Cardiovascular: denies: chest pain, palpitations, orthopnea, paroxysmal noc. dyspnea, edema, light headedness, other Gastrointestinal: denies: nausea, vomiting, abdominal pain, diarrhea, constipation, melena, hematochezia, other Genitourinary: denies: dysuria, frequency, incontinence, hematuria, retention, other - Medication Medications: Active Medications Generic Name Dose Route Start Last Admin Trade Name Freq PRN Reason Stop Dose Admin Acetaminophen 650 mg 09/26/19 20:36 10/01/19 08:00 Tylenol PO 650 mg Q4H PRN Administration Headache/Fever/Mild Pain (1-3) Albuterol Sulfate 2.5 mg 09/26/19 20:36 09/30/19 02:34 Ventolin NEB 2.5 mg [id number] PRN Administration Wheezing Albuterol/Ipratropium 3 ml 09/27/19 01:00 10/04/19 06:54 Duoneb NEB 3 ml [id number] ELISABETH Administration Amiodarone HCl 400 mg 09/29/19 21:00 10/03/19 20:32 Cordarone PO 400 mg BID ELISABETH Administration Aspirin 81 mg 09/27/19 09:00 10/03/19 06:09 Aspirin Chewable PO 81 mg DAILY ELISABETH Administration Atorvastatin Calcium 80 mg 09/26/19 21:00 10/03/19 20:33 Lipitor PO 80 mg HS ELISABETH Administration Beer 1 each 10/01/19 12:00 10/03/19 17:36 Beer PO 1 each 1200,1700 ELISABETH Administration Carvedilol 3.125 mg 09/26/19 21:00 10/03/19 20:33 Coreg PO 3.125 mg BID ELISABETH Administration Famotidine 20 mg 09/26/19 21:00 10/03/19 20:33 Pepcid PO 20 mg BID ELISABETH Administration Ferrous Sulfate 325 mg 10/02/19 08:00 10/03/19 06:08 Feosol PO 325 mg QAM-WM ELISABETH Administration Insulin Human Lispro 0 units 09/26/19 20:36 09/29/19 17:15 Humalog SC 3 unit .MILD SLIDING SCALE PRN Administration Mild Correctional Scale Insulin Human Lispro 0 units 09/26/19 20:36 09/28/19 20:06 Humalog SC 2 unit .BEDTIME SLIDING SC PRN Administration Bedtime Correctional Scale Melatonin 3 mg 09/28/19 22:29 09/29/19 23:47 Melatonin PO 3 mg HS PRN Administration Insomnia Senna/Docusate Sodium 2 tab 09/26/19 20:36 09/29/19 08:44 Senokot S PO 2 tab BID PRN Administration Constipation Sodium Chloride 10 ml 09/26/19 20:01 10/03/19 20:33 Flush - Normal Saline IVF 10 ml PRN PRN Administration Saline Flush - Exam Respiratory: negative: CTAB, no wheezes, no rales, no ronchi, normal chest expansion, no tachypnea, normal percussion, rales, rhonchi, tachypneic, wheezes Gastrointestinal: negative: soft, non-tender, non-distended, normal bowel sounds , no palpable masses, no hepatomegaly, no splenomegaly, no bruit, no guarding, no rigidity, tender to palpation, distended, diminished bowl sounds, voluntary guarding Extremities: negative: no cyanosis, no clubbing, no edema, 1+ LE edema, 2+ LE edema, clubbing Extremities - other findings: right groin dressing intact. Hosp A/P - Plan (1) Acute diastolic congestive heart failure Status: Acute Qualifiers: Heart failure type: diastolic Qualified Code(s): I50.31 - Acute diastolic ( congestive) heart failure (2) Acute on chronic respiratory failure with hypoxia Code(s): J96.21 - ACUTE AND CHRONIC RESPIRATORY FAILURE WITH HYPOXIA Status: Acute (3) NSTEMI (non-ST elevated myocardial infarction) Code(s): I21.4 - NON-ST ELEVATION (NSTEMI) MYOCARDIAL INFARCTION Status: Acute (4) Acute exacerbation of emphysema Code(s): J43.9 - EMPHYSEMA, UNSPECIFIED Status: Acute (5) Iron deficiency Status: Chronic (5) Hyperlipidemia Code(s): E78.5 - HYPERLIPIDEMIA, UNSPECIFIED Status: Chronic - Plan Continue IV furosemide, pt is clinically improving. Pt will need cardiac cath after resp status improves and GI workup completed re : iron deficiency. Consult GI service re: iron deficiency. Episodes of hypotension. Pt is on atorvastatin. 10/01 pt was found to be anemic, she underwent colonoscopy which indicated a friable mass. she has been seen by surgery. she also has nstemi and will need a cardiac cath. She is doing well respiratory snow. she is on oxygen 2L. 10/02 post cath medical management. pt to undergo possible colectomy in am. will check labs in am.
--- NOTE | 2019-10-04 08:03 | PDOC.HOSPP ---
- Subjective Encounter Date: 10/03/19 Encounter Time: 11:45 Subjective: pt up in bed no complains - Objective Vital Signs & Weight: Vital Signs (12 hours) Temp Pulse Resp BP Pulse Ox 10/04/19 07:38 93 L 10/04/19 07:10 98.2 F 68 19 145/63 H 93 L 10/04/19 06:54 63 18 100 10/04/19 04:55 99.0 F 73 19 98/52 L 98 10/04/19 00:30 95 10/03/19 23:57 97.9 F 74 16 127/60 74 L 10/03/19 23:48 74 16 96 10/03/19 20:25 96 Weight Weight 129 lb 6.4 oz Most Recent Monitor Data Heart Rate from ECG 68 NIBP 121/47 NIBP BP-Mean 71 Respiration from ECG 17 SpO2 98 I&O: 10/03/19 10/04/19 10/05/19 06:59 06:59 06:59 Intake Total 1810 1320 Output Total 1950 Balance -140 1320 Result Diagrams: 10/04/19 04:37 10/04/19 04:37 Additional Labs: Accuchecks 10/03/19 10/03/19 10/03/19 20:20 16:42 11:10 POC Glucose 110 147 H 106 Hospitalist ROS - Review of Systems Respiratory: denies: cough, dry, shortness of breath, hemoptysis, SOB with excertion, pleuritic pain, sputum, wheezing, other Cardiovascular: denies: chest pain, palpitations, orthopnea, paroxysmal noc. dyspnea, edema, light headedness, other Gastrointestinal: denies: nausea, vomiting, abdominal pain, diarrhea, constipation, melena, hematochezia, other - Medication Medications: Active Medications Generic Name Dose Route Start Last Admin Trade Name Freq PRN Reason Stop Dose Admin Acetaminophen 650 mg 09/26/19 20:36 10/01/19 08:00 Tylenol PO 650 mg Q4H PRN Administration Headache/Fever/Mild Pain (1-3) Albuterol Sulfate 2.5 mg 09/26/19 20:36 09/30/19 02:34 Ventolin NEB 2.5 mg [id number] PRN Administration Wheezing Albuterol/Ipratropium 3 ml 09/27/19 01:00 10/04/19 06:54 Duoneb NEB 3 ml [id number] ELISABETH Administration Amiodarone HCl 400 mg 09/29/19 21:00 10/03/19 20:32 Cordarone PO 400 mg BID ELISABETH Administration Aspirin 81 mg 09/27/19 09:00 10/03/19 06:09 Aspirin Chewable PO 81 mg DAILY ELISABETH Administration Atorvastatin Calcium 80 mg 09/26/19 21:00 10/03/19 20:33 Lipitor PO 80 mg HS ELISABETH Administration Beer 1 each 10/01/19 12:00 10/03/19 17:36 Beer PO 1 each 1200,1700 ELISABETH Administration Carvedilol 3.125 mg 09/26/19 21:00 10/03/19 20:33 Coreg PO 3.125 mg BID ELISABETH Administration Famotidine 20 mg 09/26/19 21:00 10/03/19 20:33 Pepcid PO 20 mg BID ELISABETH Administration Ferrous Sulfate 325 mg 10/02/19 08:00 10/03/19 06:08 Feosol PO 325 mg QAM-WM ELISABETH Administration Insulin Human Lispro 0 units 09/26/19 20:36 09/29/19 17:15 Humalog SC 3 unit .MILD SLIDING SCALE PRN Administration Mild Correctional Scale Insulin Human Lispro 0 units 09/26/19 20:36 09/28/19 20:06 Humalog SC 2 unit .BEDTIME SLIDING SC PRN Administration Bedtime Correctional Scale Melatonin 3 mg 09/28/19 22:29 09/29/19 23:47 Melatonin PO 3 mg HS PRN Administration Insomnia Senna/Docusate Sodium 2 tab 09/26/19 20:36 09/29/19 08:44 Senokot S PO 2 tab BID PRN Administration Constipation Sodium Chloride 10 ml 09/26/19 20:01 10/03/19 20:33 Flush - Normal Saline IVF 10 ml PRN PRN Administration Saline Flush - Exam Heart: negative: RRR, no murmur, no gallops, no rubs, normal peripheral pulses, irregular, diminshed peripheral pulses, murmur present, II/IV, III/IV Respiratory: negative: CTAB, no wheezes, no rales, no ronchi, normal chest expansion, no tachypnea, normal percussion, rales, rhonchi, tachypneic, wheezes Gastrointestinal: negative: soft, non-tender, non-distended, normal bowel sounds , no palpable masses, no hepatomegaly, no splenomegaly, no bruit, no guarding, no rigidity, tender to palpation, distended, diminished bowl sounds, voluntary guarding Extremities: negative: no cyanosis, no clubbing, no edema, 1+ LE edema, 2+ LE edema, clubbing Extremities - other findings: right groin dressing intact, pedal pulse present bilaterally Hosp A/P - Plan (1) Acute diastolic congestive heart failure Status: Acute Qualifiers: Heart failure type: diastolic Qualified Code(s): I50.31 - Acute diastolic ( congestive) heart failure (2) Acute on chronic respiratory failure with hypoxia Code(s): J96.21 - ACUTE AND CHRONIC RESPIRATORY FAILURE WITH HYPOXIA Status: Acute (3) NSTEMI (non-ST elevated myocardial infarction) Code(s): I21.4 - NON-ST ELEVATION (NSTEMI) MYOCARDIAL INFARCTION Status: Acute (4) Acute exacerbation of emphysema Code(s): J43.9 - EMPHYSEMA, UNSPECIFIED Status: Acute (5) Iron deficiency Status: Chronic (5) Hyperlipidemia Code(s): E78.5 - HYPERLIPIDEMIA, UNSPECIFIED Status: Chronic - Plan Continue IV furosemide, pt is clinically improving. Pt will need cardiac cath after resp status improves and GI workup completed re : iron deficiency. Consult GI service re: iron deficiency. Episodes of hypotension. Pt is on atorvastatin. 10/01 pt was found to be anemic, she underwent colonoscopy which indicated a friable mass. she has been seen by surgery. she also has nstemi and will need a cardiac cath. She is doing well respiratory snow. she is on oxygen 2L. 10/02 post cath medical management. pt to undergo possible colectomy in am. will check labs in am.
[2019-10-04] MEDS ORDERED: Fentanyl 100 MCG/2 ML VIAL ONE ×3 (08:11→14:02)
[2019-10-04 09:38] LABS: PTT 28.8 SEC (22.9-36.1); Prothrombin Time 12.7 SEC (12.0-14.7)
[2019-10-04] MEDS ORDERED: EPHEDRINE 25 MG/5 ML SYRINGE ONE (10:01)
[2019-10-04] MEDS ORDERED: PHENYLEPHRINE-NS 100 MCG/ML 10 ML SYRINGE ONE (10:01)
[2019-10-04] MEDS ORDERED: PROPOFOL 200 MG/20 ML VIAL ONE (10:01)
[2019-10-04] MEDS ORDERED: Calcium Chloride 1 GM/10 ML Abboject SYRINGE ONE (10:01)
[2019-10-04] MEDS ORDERED: Lidocaine 1% PF 5 ML VIAL ONE (10:01)
[2019-10-04] MEDS ORDERED: Phenylephrine 10 MG/ML VIAL ONE (10:23)
[2019-10-04] MEDS ORDERED: Ketorolac Tromethamine 30 MG/ML VIAL IVP PRN (13:11)
[2019-10-04] MEDS ORDERED: Promethazine HCl 25 MG/ML VIAL SLOW IVP PRN (13:11)
[2019-10-04] MEDS ORDERED: Ondansetron HCl/PF 4 MG/2 ML Vial IVP PRN (13:11)
[2019-10-04] MEDS ORDERED: Promethazine HCl 25 MG/ML VIAL IM PRN ×2 (13:11→13:16)
[2019-10-04] MEDS ORDERED: diphenhydrAMINE 25 MG CAP PO PRN (13:16)
[2019-10-04] MEDS ORDERED: HYDROmorphone 10 mg/100 ml CADD IVPB PRN (13:16)
[2019-10-04] MEDS ORDERED: Naloxone HCl 0.4 mg/ml Vial IV PRN (13:16)
[2019-10-04] MEDS ORDERED: diphenhydrAMINE 50 MG/ML VIAL IVP PRN (13:16)
[2019-10-04] MEDS ORDERED: diphenhydrAMINE 50 MG/ML VIAL IM PRN (13:16)
[2019-10-04] MEDS ORDERED: Acetaminophen 325 MG TAB PO PRN (13:21)
[2019-10-04] MEDS ORDERED: Ketorolac Tromethamine 30 MG/ML VIAL ONE (13:23)
[2019-10-04] MEDS ORDERED: Sodium Chloride 0.9% 30 ML ONE (13:28)
[2019-10-04] MEDS ORDERED: Communication Order-Pharmacy FS SCH (13:30)
--- NOTE | 2019-10-04 13:33 | RAD ---
EXAM: Single view of the abdomen HISTORY: Dobbhoff placement COMPARISON: None FINDINGS: Single view of the abdomen shows a nonspecific, nonobstructive bowel gas pattern. A Dobbhof f tube is seen just to the right of midline. This could be within an enlarged distal stomach or within the duodenum. No suspicious calcifications are seen. Contrast is seen in the colon from recent contrast examination. The bones are unremarkable. IMPRESSION: Duodenum most likely is within the distal stomach.
[2019-10-04] MEDS: BEER 1 CAN PO SCH (14:40)
[2019-10-04] MEDS: Amiodarone 200 MG TAB PO SCH ×2 (15:27→21:28)
[2019-10-04] MEDS: Carvedilol 3.125 MG TAB PO SCH ×2 (15:27→21:28)
[2019-10-04] MEDS: Famotidine 20 MG TAB PO SCH ×2 (15:28→21:28)
--- NOTE | 2019-10-04 15:42 | OP ---
DATE OF PROCEDURE: 10/04/2019 PREOPERATIVE DIAGNOSES: 1. Right colon mass. 2. Chronic anemia. POSTOPERATIVE DIAGNOSES: 1. Right colon mass. 2. Chronic anemia. OPERATIONS PERFORMED: 1. Exploratory laparotomy. 2. Right hemicolectomy with primary ileocolostomy. 3. Placement of feeding nasojejunal tube. ANESTHESIA: General endotracheal. ESTIMATED BLOOD LOSS: 20 mL. FLUIDS GIVEN: 500 mL of crystalloids and 1 unit of packed red blood cells. INDICATIONS FOR PROCEDURE: A 74-year-old woman, who was seen recently with chronic anemia. She underwent upper and lower endoscopy, where a right colon mass was discovered. She was evaluated by Cardiology following a [id number] myocardial infarction. Coronary angiography was performed without intervention, and recommendation was to bring the patient to the operating room for colectomy. Findings are consistent with normal intraabdominal anatomy on exploration. DESCRIPTION OF PROCEDURE: Informed consent was obtained from the patient, who was brought to the operating room and placed in supine position. Following general anesthesia, abdomen was sterilely prepped and draped in usual fashion. A midline incision was made using 10 scalpel. The incision was carried through subcutaneous tissues, maintaining hemostasis using cautery. The fascia was incised in midline, exposing the peritoneum beneath, which was grasped x2 with hemostats. The peritoneal cavity was sharply entered using Metzenbaum scissors. Minor intraabdominal adhesions were taken down using Metzenbaum scissors. Bookwalter retractor was put in place to gain exposure. Small bowel was then run from the ligament of Treitz down to terminal ileum, finding no palpatory pathology. The colon was then inspected from the cecum through the ascending, transverse, descending, sigmoid colon, and rectum. No palpatory masses. The liver was palpated free of any abnormality. The spleen was also palpated free of any pathology. The stomach was palpated. I did not feel any masses. At this juncture, a feeding nasojejunal tube was inserted by Anesthesia, the tip of which was palpated by myself within the gastric lumen. I manipulated tip of this catheter into proximal small bowel without resistance. I then proceeded with right colectomy. The right colon was mobilized along the white line of Toldt. The hepatic flexure was taken down sharply using Metzenbaum scissors and reflected medially. Care was taken to avoid injury to the underlying duodenum. I then placed a rent through the mesentery of the small bowel, approximately 6 cm from the ileocecal junction, through which a JULISA stapler was introduced and the small bowel was divided. I then created a rent through the ascending mesocolon, through which re-loaded JULISA stapler was introduced and bowel was divided. Mesentery of the specimen was then sterilely divided using LigaSure device with good hemostasis. Specimen was passed off the operative field for pathology. The small bowel was again run from ligament of Treitz down to terminal ileum and did not find any pathology. We then approximated the small and large bowel in anatomic [id number] fashion, antimesenteric border using interrupted sutures of 3-0 silk. Enterotomies were made at both apices, through which a JULISA stapler was introduced and a functional end-to-end but anatomic [id number] ileocolostomy was perfected. The common enterotomy was closed using a reload of JULISA stapler. Resultant mesenteric defect was then closed using a running stitch of 3-0 Vicryl. Finding no other pathology, exploration was terminated. I placed a sheet of Seprafilm in the deep pelvis prior to returning small bowel to normal anatomic location. A second sheet of Seprafilm was then placed over the remainder of the small bowel, and omentum was drawn over the viscera. Fascia was approximated in midline using a running stitch of #1 single stranded PDS. Subcutaneous tissues were irrigated with saline, perfected hemostasis using cautery. The tissues were then approximated using interrupted sutures of 3-0 Vicryl. Skin incision was closed using a running stitch of 3-0 Monocryl suture in subcuticular fashion. Dermabond was applied over incisional closure. The patient tolerated the operation without any apparent complication and was returned to the recovery room in satisfactory condition. Job ID: [id number]
[2019-10-04] MEDS: Ketorolac Tromethamine 30 MG/ML VIAL IVP SCH ×2 (16:05→21:29)
[2019-10-04] MEDS ORDERED: Sodium Chloride 0.9% 500 ML IV SCH (17:15)
[2019-10-04] MEDS: HumaLOG 300 UNITS/3 ML VIAL SC PRN (17:23)
[2019-10-04] MEDS ORDERED: Potassium Chloride 40 MEQ in Sodium Chloride 0.9% 250 ML 250 ML IVPB SCH (17:30)
[2019-10-04] MEDS: Oxazepam 10 MG CAP PO SCH ×2 (17:32→21:27)
[2019-10-04] MEDS: Lactated Ringer's 1,000 ML IV SCH (17:37)
[2019-10-04] MEDS: Ferrous Sulfate 325 MG TAB PO SCH (20:42)
[2019-10-04] MEDS: Lisinopril 5 MG TAB PO SCH (20:42)
[2019-10-04] MEDS: Aspirin Chewable 81 MG TAB PO SCH (20:42)
[2019-10-04] MEDS: Furosemide 40 MG TAB PO SCH (20:42)
[2019-10-04] MEDS: Atorvastatin Calcium 40 MG TAB PO SCH (21:28)
[2019-10-04] MEDS ORDERED: Albumin 25% 25 GM/100 ML BOT IVPB SCH (21:45)
[2019-10-05] MEDS ORDERED: Furosemide 20 MG/2 ML VIAL SLOW IVP SCH (00:15)
--- NOTE | 2019-10-05 00:36 | PRG ---
DATE OF SERVICE: 10/04/2019 SUBJECTIVE: The patient is currently on the critical care unit. She is a patient we are seeing in consultation for a right colon mass. She underwent exploratory laparotomy, right hemicolectomy with primary ileocolostomy, and placement of feeding nasojejunal tube. She tolerated these procedures well. She did require 2 units of packed red blood cells during the procedure and immediately postop and a 500 mL bolus of crystalloids. At the time of my visit, she was awake, interactive, appropriate, and declined any pain. OBJECTIVE: VITAL SIGNS: Stable. The patient is afebrile. Her urinary output though was less than optimal, it is approximately 20 mL/h for the previous 2 hours. LUNGS: Clear to auscultation bilaterally. HEART: Regular rate and rhythm. ABDOMEN: Soft with hypoactive bowel sounds. Her wound is clean, dry, and intact. ASSESSMENT: Status post exploratory laparotomy, right hemicolectomy with primary ileocolostomy and placement of feeding nasojejunal tube. PLAN: To give the patient 25% albumin and continue to follow her urinary output. Continue her tube feeds at trophic rate at this time. As her bowel function returns we will increase those. Otherwise, we will continue supportive care and follow with the Primary Team. Job ID: [id number]
[2019-10-05 03:59] LABS: #Lymphocytes 1.1 thou/uL (1.20-3.40); #Monocytes 1.8 thou/uL (0.11-0.59); #Neutrophils 14.8 thou/uL (1.40-6.50); %Basophils 0.1 % (0.0-1.0); %Eosinophils 0.2 % (0.0-10.0); %Lymphocytes 6.2 % (21.0-51.0); %Monocytes 9.9 % (0.0-10.0); %Neutrophils 83.7 % (42.0-75.0); Hemoglobin 9.7 g/dL (12.0-16.0); Mean Corpuscular HGB CONC 31.9 g/dL (32.0-36.0); Mean Corpuscular Volume 90.9 fL (78.0-98.0); Platelet Count 335 thou/uL (130-400); RBC Distribution Width 17.7 % (11.5-14.5); Red Blood Cell (RBC) Count 3.33 mill/uL (4.20-5.40); White Blood Cell (WBC) Count 17.7 thou/uL (4.8-10.8)
[2019-10-05 04:18] LABS: Anion Gap 15 mmol/L (10-20); BUN (Urea Nitrogen) 16 mg/dL (9.8-20.1); Calc. Creatinine Clearance 57 mL/min (70-130); Calcium 8.8 mg/dL (7.8-10.44); Carbon Dioxide 20 mmol/L (23-31); Chloride 106 mmol/L (98-107); Estimated GFR-MDRD 68; Glucose 157 mg/dL (83-110); Magnesium 1.9 mg/dL (1.6-2.6); Phosphorus 4.1 mg/dL (2.3-4.7); Potassium 4.6 mmol/L (3.5-5.1); Sodium 136 mmol/L (136-145)
[2019-10-05] MEDS: Lactated Ringer's 1,000 ML IV SCH ×2 (04:47→15:05)
[2019-10-05] MEDS ORDERED: Magnesium 2 GM/50 ML 2 GM in Premix Bag 1 BAG IVPB SCH (05:30)
[2019-10-05] MEDS: Ketorolac Tromethamine 30 MG/ML VIAL IVP SCH ×3 (05:45→21:51)
[2019-10-05] MEDS: HumaLOG 300 UNITS/3 ML VIAL SC PRN ×2 (06:00→11:32)
[2019-10-05] MEDS: Carvedilol 3.125 MG TAB PO SCH ×2 (08:40→20:55)
[2019-10-05] MEDS: Oxazepam 10 MG CAP PO SCH ×3 (08:40→20:54)
[2019-10-05] MEDS: Furosemide 40 MG TAB PO SCH (08:40)
[2019-10-05] MEDS: Aspirin Chewable 81 MG TAB PO SCH (08:40)
[2019-10-05] MEDS: Ferrous Sulfate 325 MG TAB PO SCH (08:41)
[2019-10-05] MEDS: Amiodarone 200 MG TAB PO SCH ×2 (08:41→20:55)
[2019-10-05] MEDS: Lisinopril 5 MG TAB PO SCH (08:41)
[2019-10-05] MEDS: Folic Acid 1 MG TAB PO SCH (08:41)
[2019-10-05] MEDS: Famotidine 20 MG TAB PO SCH ×2 (08:41→20:55)
[2019-10-05] MEDS: Thiamine 100 MG TAB PO SCH (08:42)
--- NOTE | 2019-10-05 14:40 | PRG ---
DATE OF SERVICE: 10/05/2019 SUBJECTIVE: Ms. Infante is a 74-year-old female with status post exploratory laparotomy and right hemicolectomy with primarily ileostomy and placement of feeding NG tube yesterday. The patient tolerated the procedure well. The patient is doing good. Pain is well controlled. No overnight event last night. Vital signs have been stable. The patient had an episode of low urine last night in which she got 20 mg IV Lasix. Ileostomy working. OBJECTIVE: GENERAL: The patient lying in bed, comfortable, with no acute respiratory distress. NG tube is in place. VITAL SIGNS: Heart rate is 67, respiratory rate 14, O2 saturation 93% on 2 L, blood pressure 137/53. LUNGS: Clear bilaterally. HEART: Regular rate and rhythm. ABDOMEN: Soft, nondistended. Ileostomy working. EXTREMITIES: Neurovascularly intact x4. NEUROLOGIC: No focal neurology deficits. ASSESSMENT: 1. Cecal mass on colonoscopy. 2. Exploratory laparotomy, right hemicolectomy with primary anastomosis and ileostomy. The patient has a history of non-STEMI with cath labs negative. PLAN: Continue bowel rest. Continue Lasix Continue n.p.o. Patient will be transferred to surgical floor and the patient will be working with physical therapy. Encouraged activity. Continue DVT prophylaxis. Await for bowel function return to advance diet. The patient was seen and evaluated with Dr. Montiel on round this morning. Job ID: [id number]
--- NOTE | 2019-10-05 18:34 | PDOC.HOSPP ---
- Subjective Encounter Date: 10/05/19 Encounter Time: 11:45 Subjective: pt up in bed feels tired. - Objective Vital Signs & Weight: Vital Signs (12 hours) Temp Pulse Pulse Resp BP BP BP 10/05/19 15:35 97.7 F 81 16 77/54 L 10/05/19 13:16 74 16 10/05/19 12:05 10/05/19 12:00 97.6 F 10/05/19 10:40 65 137/53 L 10/05/19 09:27 97.7 F 71 16 141/52 H 141/52 H 10/05/19 08:41 75 147/54 H 10/05/19 08:05 75 12 10/05/19 08:00 98.9 F Pulse Ox Pulse Ox 10/05/19 15:35 90 L 10/05/19 13:16 92 L 10/05/19 12:05 94 L 10/05/19 12:00 94 L 10/05/19 10:40 93 L 10/05/19 09:27 94 L 10/05/19 08:41 10/05/19 08:05 10/05/19 08:00 94 L Weight Weight 136 lb 7.458 oz Most Recent Monitor Data Heart Rate from ECG 69 NIBP 169/78 NIBP BP-Mean 108 Respiration from ECG 15 SpO2 96 I&O: 10/04/19 10/05/19 10/06/19 06:59 06:59 06:59 Intake Total 1320 2507 815 Output Total 760 70 Balance 1320 1747 745 Result Diagrams: 10/05/19 03:29 10/05/19 03:29 Additional Labs: Accuchecks 10/05/19 10/05/19 10/04/19 11:23 05:53 21:28 POC Glucose 159 H 165 H 149 H Hospitalist ROS - Review of Systems Cardiovascular: denies: chest pain, palpitations, orthopnea, paroxysmal noc. dyspnea, edema, light headedness, other Gastrointestinal: denies: nausea, vomiting, abdominal pain, diarrhea, constipation, melena, hematochezia, other Genitourinary: denies: dysuria, frequency, incontinence, hematuria, retention, other - Medication Medications: Active Medications Generic Name Dose Route Start Last Admin Trade Name Freq PRN Reason Stop Dose Admin Albuterol Sulfate 2.5 mg 09/26/19 20:36 09/30/19 02:34 Ventolin NEB 2.5 mg [id number] PRN Administration Wheezing Albuterol/Ipratropium 3 ml 09/27/19 01:00 10/05/19 13:16 Duoneb NEB 3 ml [id number] ELISABETH Administration Amiodarone HCl 400 mg 09/29/19 21:00 10/05/19 08:41 Cordarone PO 400 mg BID ELISABETH Administration Aspirin 81 mg 09/27/19 09:00 10/05/19 08:40 Aspirin Chewable PO 81 mg DAILY ELISABETH Administration Atorvastatin Calcium 80 mg 09/26/19 21:00 10/04/19 21:28 Lipitor PO 80 mg HS ELISABETH Administration Carvedilol 3.125 mg 09/26/19 21:00 10/05/19 08:40 Coreg PO 3.125 mg BID ELISABETH Administration Famotidine 20 mg 09/26/19 21:00 10/05/19 08:41 Pepcid PO 20 mg BID ELISABETH Administration Ferrous Sulfate 325 mg 10/02/19 08:00 10/05/19 08:41 Feosol PO 325 mg QAM-WM ELISABETH Administration Folic Acid 1 mg 10/05/19 09:00 10/05/19 08:41 Folvite PO 1 mg DAILY ELISABETH Administration Furosemide 40 mg 10/04/19 07:30 10/05/19 08:40 Lasix PO 40 mg DAILY-AC ELISABETH Administration Lactated Ringer's 1,000 mls @ 100 mls/hr 10/04/19 17:15 10/05/19 15:05 Lactated Ringer's IV 1,000 mls .Q10H ELISABETH Administration Insulin Human Lispro 0 units 09/26/19 20:36 10/05/19 11:32 Humalog SC 2 unit .MILD SLIDING SCALE PRN Administration Mild Correctional Scale Insulin Human Lispro 0 units 09/26/19 20:36 09/28/19 20:06 Humalog SC 2 unit .BEDTIME SLIDING SC PRN Administration Bedtime Correctional Scale Ketorolac Tromethamine 15 mg 10/04/19 14:00 10/05/19 13:58 Toradol IVP 10/06/19 14:01 15 mg Q8HR ELISABETH Administration Lisinopril 5 mg 10/04/19 09:00 10/05/19 08:41 Zestril PO 5 mg DAILY ELISABETH Administration Melatonin 3 mg 09/28/19 22:29 09/29/19 23:47 Melatonin PO 3 mg HS PRN Administration Insomnia Oxazepam 10 mg 10/04/19 15:00 10/05/19 15:05 Serax PO 10 mg TID ELISABETH Administration Senna/Docusate Sodium 2 tab 09/26/19 20:36 09/29/19 08:44 Senokot S PO 2 tab BID PRN Administration Constipation Sodium Chloride 10 ml 09/26/19 20:01 10/03/19 20:33 Flush - Normal Saline IVF 10 ml PRN PRN Administration Saline Flush Thiamine HCl 100 mg 10/05/19 09:00 10/05/19 08:42 Thiamine PO 100 mg DAILY ELISABETH Administration - Exam Neck: negative: supple, symmetric, no JVD, no thyromegaly, no lymphadenopathy, no carotid bruit, JVD Heart: negative: RRR, no murmur, no gallops, no rubs, normal peripheral pulses, irregular, diminshed peripheral pulses, murmur present, II/IV, III/IV Respiratory: negative: CTAB, no wheezes, no rales, no ronchi, normal chest expansion, no tachypnea, normal percussion, rales, rhonchi, tachypneic, wheezes Gastrointestinal - other findings: mid abd incision Extremities: negative: no cyanosis, no clubbing, no edema, 1+ LE edema, 2+ LE edema, clubbing Hosp A/P - Plan (1) Acute diastolic congestive heart failure Status: Acute Qualifiers: Heart failure type: diastolic Qualified Code(s): I50.31 - Acute diastolic ( congestive) heart failure (2) Acute on chronic respiratory failure with hypoxia Code(s): J96.21 - ACUTE AND CHRONIC RESPIRATORY FAILURE WITH HYPOXIA Status: Acute (3) NSTEMI (non-ST elevated myocardial infarction) Code(s): I21.4 - NON-ST ELEVATION (NSTEMI) MYOCARDIAL INFARCTION Status: Acute (4) Acute exacerbation of emphysema Code(s): J43.9 - EMPHYSEMA, UNSPECIFIED Status: Acute (5) Iron deficiency Status: Chronic (5) Hyperlipidemia Code(s): E78.5 - HYPERLIPIDEMIA, UNSPECIFIED Status: Chronic - Plan Continue IV furosemide, pt is clinically improving. Pt will need cardiac cath after resp status improves and GI workup completed re : iron deficiency. Consult GI service re: iron deficiency. Episodes of hypotension. Pt is on atorvastatin. 10/01 pt was found to be anemic, she underwent colonoscopy which indicated a friable mass. she has been seen by surgery. she also has nstemi and will need a cardiac cath. She is doing well respiratory snow. she is on oxygen 2L. 10/02 post cath medical management. pt to undergo possible colectomy in am. will check labs in am. 10/03 pt going to surgery. labs are stable. she continues to be on oxygen 2L. 10/04 pt up in bed, gallegos discontinued. will continue iv fluids for now. s/p right hemicolectomy.
--- NOTE | 2019-10-05 18:36 | PDOC.HOSPP ---
- Subjective Encounter Date: 10/04/19 Encounter Time: 08:00 Subjective: pt up in bed is going for surgery - Objective Vital Signs & Weight: Vital Signs (12 hours) Temp Pulse Pulse Resp BP BP BP 10/05/19 15:35 97.7 F 81 16 77/54 L 10/05/19 13:16 74 16 10/05/19 12:05 10/05/19 12:00 97.6 F 10/05/19 10:40 65 137/53 L 10/05/19 09:27 97.7 F 71 16 141/52 H 141/52 H 10/05/19 08:41 75 147/54 H 10/05/19 08:05 75 12 10/05/19 08:00 98.9 F Pulse Ox Pulse Ox 10/05/19 15:35 90 L 10/05/19 13:16 92 L 10/05/19 12:05 94 L 10/05/19 12:00 94 L 10/05/19 10:40 93 L 10/05/19 09:27 94 L 10/05/19 08:41 10/05/19 08:05 10/05/19 08:00 94 L Weight Weight 136 lb 7.458 oz Most Recent Monitor Data Heart Rate from ECG 69 NIBP 169/78 NIBP BP-Mean 108 Respiration from ECG 15 SpO2 96 I&O: 10/04/19 10/05/19 10/06/19 06:59 06:59 06:59 Intake Total 1320 2507 815 Output Total 760 70 Balance 1320 1747 745 Result Diagrams: 10/05/19 03:29 10/05/19 03:29 Additional Labs: Accuchecks 10/05/19 10/05/19 10/04/19 11:23 05:53 21:28 POC Glucose 159 H 165 H 149 H Hospitalist ROS - Review of Systems Respiratory: denies: cough, dry, shortness of breath, hemoptysis, SOB with excertion, pleuritic pain, sputum, wheezing, other Cardiovascular: denies: chest pain, palpitations, orthopnea, paroxysmal noc. dyspnea, edema, light headedness, other Gastrointestinal: denies: nausea, vomiting, abdominal pain, diarrhea, constipation, melena, hematochezia, other - Medication Medications: Active Medications Generic Name Dose Route Start Last Admin Trade Name Freq PRN Reason Stop Dose Admin Albuterol Sulfate 2.5 mg 09/26/19 20:36 09/30/19 02:34 Ventolin NEB 2.5 mg [id number] PRN Administration Wheezing Albuterol/Ipratropium 3 ml 09/27/19 01:00 10/05/19 13:16 Duoneb NEB 3 ml [id number] ELISABETH Administration Amiodarone HCl 400 mg 09/29/19 21:00 10/05/19 08:41 Cordarone PO 400 mg BID ELISABETH Administration Aspirin 81 mg 09/27/19 09:00 10/05/19 08:40 Aspirin Chewable PO 81 mg DAILY ELISABETH Administration Atorvastatin Calcium 80 mg 09/26/19 21:00 10/04/19 21:28 Lipitor PO 80 mg HS ELISABETH Administration Carvedilol 3.125 mg 09/26/19 21:00 10/05/19 08:40 Coreg PO 3.125 mg BID ELISABETH Administration Famotidine 20 mg 09/26/19 21:00 10/05/19 08:41 Pepcid PO 20 mg BID ELISABETH Administration Ferrous Sulfate 325 mg 10/02/19 08:00 10/05/19 08:41 Feosol PO 325 mg QAM-WM ELISABETH Administration Folic Acid 1 mg 10/05/19 09:00 10/05/19 08:41 Folvite PO 1 mg DAILY ELISABETH Administration Furosemide 40 mg 10/04/19 07:30 10/05/19 08:40 Lasix PO 40 mg DAILY-AC ELISABETH Administration Lactated Ringer's 1,000 mls @ 100 mls/hr 10/04/19 17:15 10/05/19 15:05 Lactated Ringer's IV 1,000 mls .Q10H ELISABETH Administration Insulin Human Lispro 0 units 09/26/19 20:36 10/05/19 11:32 Humalog SC 2 unit .MILD SLIDING SCALE PRN Administration Mild Correctional Scale Insulin Human Lispro 0 units 09/26/19 20:36 09/28/19 20:06 Humalog SC 2 unit .BEDTIME SLIDING SC PRN Administration Bedtime Correctional Scale Ketorolac Tromethamine 15 mg 10/04/19 14:00 10/05/19 13:58 Toradol IVP 10/06/19 14:01 15 mg Q8HR ELISABETH Administration Lisinopril 5 mg 10/04/19 09:00 10/05/19 08:41 Zestril PO 5 mg DAILY ELISABETH Administration Melatonin 3 mg 09/28/19 22:29 09/29/19 23:47 Melatonin PO 3 mg HS PRN Administration Insomnia Oxazepam 10 mg 10/04/19 15:00 10/05/19 15:05 Serax PO 10 mg TID ELISABETH Administration Senna/Docusate Sodium 2 tab 09/26/19 20:36 09/29/19 08:44 Senokot S PO 2 tab BID PRN Administration Constipation Sodium Chloride 10 ml 09/26/19 20:01 10/03/19 20:33 Flush - Normal Saline IVF 10 ml PRN PRN Administration Saline Flush Thiamine HCl 100 mg 10/05/19 09:00 10/05/19 08:42 Thiamine PO 100 mg DAILY ELISABETH Administration - Exam Neck: negative: supple, symmetric, no JVD, no thyromegaly, no lymphadenopathy, no carotid bruit, JVD Heart: negative: RRR, no murmur, no gallops, no rubs, normal peripheral pulses, irregular, diminshed peripheral pulses, murmur present, II/IV, III/IV Respiratory: negative: CTAB, no wheezes, no rales, no ronchi, normal chest expansion, no tachypnea, normal percussion, rales, rhonchi, tachypneic, wheezes Gastrointestinal: negative: soft, non-tender, non-distended, normal bowel sounds , no palpable masses, no hepatomegaly, no splenomegaly, no bruit, no guarding, no rigidity, tender to palpation, distended, diminished bowl sounds, voluntary guarding Hosp A/P - Plan (1) Acute diastolic congestive heart failure Status: Acute Qualifiers: Heart failure type: diastolic Qualified Code(s): I50.31 - Acute diastolic ( congestive) heart failure (2) Acute on chronic respiratory failure with hypoxia Code(s): J96.21 - ACUTE AND CHRONIC RESPIRATORY FAILURE WITH HYPOXIA Status: Acute (3) NSTEMI (non-ST elevated myocardial infarction) Code(s): I21.4 - NON-ST ELEVATION (NSTEMI) MYOCARDIAL INFARCTION Status: Acute (4) Acute exacerbation of emphysema Code(s): J43.9 - EMPHYSEMA, UNSPECIFIED Status: Acute (5) Iron deficiency Status: Chronic (5) Hyperlipidemia Code(s): E78.5 - HYPERLIPIDEMIA, UNSPECIFIED Status: Chronic - Plan Continue IV furosemide, pt is clinically improving. Pt will need cardiac cath after resp status improves and GI workup completed re : iron deficiency. Consult GI service re: iron deficiency. Episodes of hypotension. Pt is on atorvastatin. 10/01 pt was found to be anemic, she underwent colonoscopy which indicated a friable mass. she has been seen by surgery. she also has nstemi and will need a cardiac cath. She is doing well respiratory snow. she is on oxygen 2L. 10/02 post cath medical management. pt to undergo possible colectomy in am. will check labs in am. 10/03 pt going to surgery. labs are stable. she continues to be on oxygen 2L.
[2019-10-05] MEDS: Melatonin 3 MG TAB PO PRN (20:54)
[2019-10-05] MEDS: Atorvastatin Calcium 40 MG TAB PO SCH (20:55)
--- NOTE | 2019-10-06 00:20 | RAD ---
Portable chest: HISTORY: Hypoxia COMPARISON: 09/26/2019 FINDINGS:Mild interstitial prominence again noted, similar to the prior exam. Borderline cardiomegaly . An NG tube is been placed and passes through the EG junction. No infiltrate or consolidation. Small effusions may be present. IMPRESSION:No significant interval change.
[2019-10-06 00:25] LABS: #Basophils 0.1 thou/uL (0.0-0.2); #Lymphocytes 1.5 thou/uL (1.20-3.40); #Monocytes 1.4 thou/uL (0.11-0.59); #Neutrophils 13.9 thou/uL (1.40-6.50); %Basophils 0.7 % (0.0-1.0); %Eosinophils 0.1 % (0.0-10.0); %Lymphocytes 8.7 % (21.0-51.0); %Neutrophils 82.5 % (42.0-75.0); Hemoglobin 9.5 g/dL (12.0-16.0); Mean Corpuscular HGB CONC 32.1 g/dL (32.0-36.0); Mean Corpuscular Hemoglobin 29.2 pg (27.0-31.0); Platelet Count 320 thou/uL (130-400); RBC Distribution Width 18.1 % (11.5-14.5); Red Blood Cell (RBC) Count 3.24 mill/uL (4.20-5.40); White Blood Cell (WBC) Count 16.8 thou/uL (4.8-10.8)
[2019-10-06 00:45] LABS: Anion Gap 12 mmol/L (10-20); BUN (Urea Nitrogen) 17 mg/dL (9.8-20.1); Calc. Creatinine Clearance 54 mL/min (70-130); Calcium 8.6 mg/dL (7.8-10.44); Carbon Dioxide 23 mmol/L (23-31); Chloride 103 mmol/L (98-107); Estimated GFR-MDRD 61; Glucose 143 mg/dL (83-110); Magnesium 1.9 mg/dL (1.6-2.6); Potassium 3.9 mmol/L (3.5-5.1); Sodium 134 mmol/L (136-145)
[2019-10-06 00:52] LABS: Phosphorus 2.5 mg/dL (2.3-4.7)
[2019-10-06] MEDS ORDERED: Furosemide 20 MG/2 ML VIAL SLOW IVP SCH (01:00)
[2019-10-06] MEDS ORDERED: Hydrocortisone Sod Succ/PF 100 mg/2 ml Vial IVP SCH (01:00)
[2019-10-06] MEDS ORDERED: Magnesium Sulfate 3 GM in Sodium Chloride 0.9% 250 ML 250 ML IVPB SCH (01:00)
--- NOTE | 2019-10-06 01:41 | PRG ---
DATE OF SERVICE: 10/06/2019 SUBJECTIVE: The patient is currently on the surgical floor. She is status post exploratory laparotomy, right hemicolectomy with primary ileocolostomy and placement of feeding nasojejunal tube. This is a patient we are seeing in consult who was originally admitted for anemia and CHF exacerbation. Tonight when I visited the patient, the nurses were concerned that her oxygen saturation was staying between 88 and 90, and she was slightly hypotensive with systolics just at about 100. She still was making good adequate urine, but was very drowsy and difficult to awaken. They had stopped her [employer] for concern that this was contributing to her altered status. At the time of my visit, the patient was asleep, but she did awaken to my voice. She would follow my commands. 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 The patient has not had a bowel movement. She declined pain at this time. PHYSICAL EXAMINATION: VITAL SIGNS: Temperature is 97.6, heart rate 78, blood pressure 100/54, respirations 22, oxygen saturation is 90% on 3 L via nasal cannula. GENERAL: The patient is resting comfortably in bed. She did awaken to my voice and interact as previously stated. LUNGS: She had scattered rhonchi and scant wheezes bilaterally. HEART: Regular rate and rhythm. ABDOMEN: Soft, nontender, with hypoactive bowel sounds. Her incision was clean, dry, and intact. ASSESSMENT: 1. Status post exploratory laparotomy, right hemicolectomy with primary ileocolostomy and placement of feeding nasojejunal tube. 2. Hypoxia, improving. 3. History of congestive heart failure exacerbation. PLAN: Plan will be to ensure the patient has scheduled DuoNebs encourage cough. We have discontinued her Dilaudid [employer]. We will give her a dose of Lasix at this time and we will replace her magnesium in light of her current labs. Her morning labs were drawn early. We will also ask the nurse to inform the primary team of the patient's situation. We will continue to follow along. We will advance her diet once her bowel function has returned. Job ID: [id number]
[2019-10-06 05:39] LABS: Phosphorus 2.3 mg/dL (2.3-4.7)
[2019-10-06 05:42] LABS: Anion Gap 11 mmol/L (10-20); BUN (Urea Nitrogen) 18 mg/dL (9.8-20.1); Calc. Creatinine Clearance 52 mL/min (70-130); Calcium 8.2 mg/dL (7.8-10.44); Carbon Dioxide 24 mmol/L (23-31); Chloride 103 mmol/L (98-107); Estimated GFR-MDRD 58; Glucose 166 mg/dL (83-110); Magnesium 3.1 mg/dL (1.6-2.6); Potassium 3.7 mmol/L (3.5-5.1); Sodium 134 mmol/L (136-145)
[2019-10-06 05:45] LABS: Band 13 % (5-11); Hemoglobin 8.7 g/dL (12.0-16.0); Hypochromia SLIGHT = 6-15 cells (100X) (0-5/hpf); Lymphocytes 4 % (21-51); MDiff Complete? YES; Mean Corpuscular HGB CONC 31.5 g/dL (32.0-36.0); Mean Corpuscular Hemoglobin 28.5 pg (27.0-31.0); Mean Corpuscular Volume 90.4 fL (78.0-98.0); Monocytes 2 % (0-10); Neutrophil 81 % (42-75); Platelet Count 339 thou/uL (130-400); Platelet Morphology Comment Appears Adequate; RBC Distribution Width 18.2 % (11.5-14.5); Red Blood Cell (RBC) Count 3.06 mill/uL (4.20-5.40); White Blood Cell (WBC) Count 23.1 thou/uL (4.8-10.8)
[2019-10-06] MEDS: Ketorolac Tromethamine 30 MG/ML VIAL IVP SCH (05:46)
[2019-10-06] MEDS: Lactated Ringer's 1,000 ML IV SCH ×2 (05:49→13:38)
[2019-10-06] MEDS: HumaLOG 300 UNITS/3 ML VIAL SC PRN ×2 (05:57→18:45)
[2019-10-06] MEDS: Furosemide 40 MG TAB PO SCH (06:35)
[2019-10-06] MEDS ORDERED: Sodium Chloride 0.9% 500 ML IV SCH (08:15)
--- NOTE | 2019-10-06 08:28 | RAD ---
EXAM: Chest one view: HISTORY: Hypoxemia COMPARISON: 10/06/2019 FINDINGS: Heart size: Stable but mildly enlarged. Lungs: Stable increased linear and interstitial markings with slight costophrenic angle blunting and biapical pleural thickening, stable. No evidence for confluent pneumonia, pleural effusion, acute edema, or pneumothorax, or other signifi cant acute process. IMPRESSION: No significant acute intrathoracic disease.
[2019-10-06] MEDS ORDERED: Calcium Chloride 13.6 MEQ in Sodium Chloride 0.9% 100 ML IVPB SCH (08:30)
[2019-10-06 08:47] LABS: Base Excess (BEa) 0.6 mEq/L (-2.0 to +3.0); CO2 Tension 33.8 mmHg (35.0-45.0); Calcium, Ionized 1.11 mmol/L (1.12-1.30); Carboxyhemoglobin (COHb) 1.7 gm% (0.0-3.0); Hemoglobin (Hb) 8.6 g/dL (12.0-16.0); O2 Tension (PaO2) 85.8 mmHg (> 70.0); Potassium - ABG Lab 3.76 mmol/L (3.70-5.30); pH, Arterial 7.47 (7.35-7.45)
[2019-10-06 08:49] LABS: Puncture Site RBRACH
[2019-10-06] MEDS ORDERED: Enoxaparin Sodium 40 MG/0.4 ML SYRINGE SC SCH ×2 (09:00→13:30)
[2019-10-06 09:23] LABS: Troponin I 0.095 ng/mL (< 0.028)
[2019-10-06] MEDS: Thiamine 100 MG TAB PO SCH (09:24)
[2019-10-06] MEDS: Oxazepam 10 MG CAP PO SCH ×3 (09:24→21:30)
[2019-10-06] MEDS: Lisinopril 5 MG TAB PO SCH (09:25)
[2019-10-06] MEDS: Folic Acid 1 MG TAB PO SCH (09:25)
[2019-10-06] MEDS: Famotidine 20 MG TAB PO SCH ×2 (09:26→21:30)
[2019-10-06] MEDS: Aspirin Chewable 81 MG TAB PO SCH (09:27)
[2019-10-06] MEDS: Amiodarone 200 MG TAB PO SCH ×2 (09:28→21:30)
[2019-10-06] MEDS: Ferrous Sulfate 325 MG TAB PO SCH (09:28)
[2019-10-06] MEDS ORDERED: Vasopressin 40 UNIT, Admixture Fee 1 EACH in Sodium Chloride 0.9% 100 ML IV SCH (09:45)
[2019-10-06 10:42] LABS: Actual Bicarbonate (HCO3a) 23.5 mEq/L (22-28); Base Excess (BEa) -0.6 mEq/L (-2.0 to +3.0); CO2 Tension 36.4 mmHg (35.0-45.0); Calcium, Ionized 1.24 mmol/L (1.12-1.30); Carboxyhemoglobin (COHb) 0.7 gm% (0.0-3.0); Hemoglobin (Hb) 8.5 g/dL (12.0-16.0); O2 Tension (PaO2) 87.8 mmHg (> 70.0); Potassium - ABG Lab 3.78 mmol/L (3.70-5.30); pH, Arterial 7.43 (7.35-7.45)
[2019-10-06 10:43] LABS: Puncture Site ALINE
[2019-10-06 11:03] LABS: Actual Bicarbonate (HCO3v) 25 mEq/L (22-28); Base Excess -0.4 mEq/L (-2.0 to +3.0); Calcium, Ionized 1.27 mmol/L (1.16-1.32); Chloride (ABG LAB) 103 mmol/L (98-106); Hemoglobin (Hb) 8.6 g/dL (11.7-16.1); Sodium 136.7 mmol/L (133-146); pH (venous) 7.35 (7.32-7.43)
--- NOTE | 2019-10-06 11:10 | RAD ---
PORTABLE SUPINE CHEST: Date: 10/06/2019 HISTORY: Assess line placement. COMPARISON: 10/06/2019. FINDINGS/IMPRESSION: Central line has been placed via the left subclavian vein. The tip overlies the SVC and appears adequ ately positioned. Borderline cardiomegaly and mild vascular engorgement again noted. Evidence of small effusions. No ac jamul interval change. POS: [facility]
[2019-10-06] MEDS ORDERED: Furosemide 40 MG/4 ML VIAL ONE (11:34)
[2019-10-06 12:59] LABS: Troponin I 0.058 ng/mL (< 0.028)
[2019-10-06] MEDS: Furosemide 100 MG in Sodium Chloride 0.9% 90 ML IVPB SCH (13:00)
[2019-10-06] MEDS: Piperacillin/Tazobactam 3.375 GM in Sodium Chloride 0.9% 100 ML IVPB SCH ×2 (13:22→18:40)
[2019-10-06] MEDS: Carvedilol 3.125 MG TAB PO SCH ×2 (13:27→21:30)
[2019-10-06 13:36] LABS: Anion Gap 16 mmol/L (10-20); BUN (Urea Nitrogen) 19 mg/dL (9.8-20.1); Calc. Creatinine Clearance 54 mL/min (70-130); Calcium 9.4 mg/dL (7.8-10.44); Carbon Dioxide 24 mmol/L (23-31); Chloride 103 mmol/L (98-107); Estimated GFR-MDRD 57; Glucose 159 mg/dL (83-110); Potassium 3.8 mmol/L (3.5-5.1); Sodium 139 mmol/L (136-145)
--- NOTE | 2019-10-06 14:11 | ULT ---
EXAM: Bilateral lower extremity venous Doppler HISTORY: Shortness of breath and elevated d-dimer noted on 09/26/2019. Hypoxemia. Rule out DVT. FINDINGS: Grayscale, color-flow, Doppler evaluation, spectral analysis of the bilateral lower extremities venou s structures is performed with 2-D imaging. The bilateral common femoral, superficial femoral, popliteal, posterior tibial, proximal greater saphenous and profunda femoral veins are imaged. The right lower extremity common femoral, profunda femoral, proximal superficial femoral veins as wel l as greater saphenous vein are not imaged or visualized secondary to overlying bandages and catheter in place. There is otherwise normal luminal compressibility and flow in the visualized deep venous structures of the bilateral lower extremities. Augmentation right lower extremity was not performed. Normal augmentation is demonstrated in the visualized left lower extremity venous structur es. IMPRESSION: 1. The right lower extremity common femoral, proximal superficial femoral, and profunda femoral veins are unable to be imaged to evaluate for DVT at these levels. DVT at these levels could not be excluded based on this exam. There is otherwise no evidence of a deep vein thrombosis in the visualiz ed deep venous structures bilateral lower extremities.
--- NOTE | 2019-10-06 15:15 | RAD ---
ABDOMEN ONE VIEW: 10/06/19 HISTORY: Dobhoff tube placement. COMPARISON: Chest radiograph of 10/06/19. FINDINGS: The feeding tube is in place with tip projecting over the gastric antrum. Small right effusion. Small volume contrast remains throughout the upper abdomen. Small to moderate right pleural effusion. IMPRESSION: Weighted feeding tube tip project over the gastric antrum. POS: [facility]
--- NOTE | 2019-10-06 15:57 | EKG ---
Test Reason : Blood Pressure : / mmHG Vent. Rate : 079 BPM Atrial Rate : 079 BPM P-R Int : 184 ms QRS Dur : 108 ms QT Int : 410 ms P-R-T Axes : 071 077 -73 degrees QTc Int : 470 ms Normal sinus rhythm Incomplete left bundle branch block Prolonged QT Abnormal ECG When compared with ECG of 26-SEP-2019 14:32, (Unconfirmed) T wave inversion now evident in Inferior leads Confirmed by MO OCNNELL, SMarie ([id number]) on 10/06/2019 3:57:34 PM Referred By: Aracely ALARCON Confirmed By:DR. Minh HASSAN MD
--- NOTE | 2019-10-06 17:39 | PDOC.HOSPP ---
- Subjective Encounter Date: 10/06/19 Encounter Time: 16:00 Subjective: Pt seen for followup re: hypotension. Pt confused, unable to complete ROS. - Objective Vital Signs & Weight: Vital Signs (12 hours) Temp Pulse Resp BP Pulse Ox 10/06/19 12:00 98.5 F 10/06/19 11:50 95 25 H 98 10/06/19 11:45 91 10/06/19 10:00 93 L 10/06/19 09:25 95 10/06/19 09:00 98.2 F 10/06/19 07:57 92 L 10/06/19 07:49 97.8 F 78 16 75/43 L Weight Admit Weight 139 lb 14.4 oz Weight 145 lb Most Recent Monitor Data Heart Rate from ECG 90 NIBP 109/49 NIBP BP-Mean 75 Respiration from ECG 20 SpO2 98 I&O: 10/05/19 10/06/19 10/07/19 06:59 06:59 06:59 Intake Total 2507 1875 1354.8 Output Total 874 563 3219 Balance 1747 1343 164.8 Result Diagrams: 10/06/19 05:08 10/06/19 12:20 Additional Labs: Accuchecks 10/06/19 10/05/19 10/05/19 05:27 19:52 18:36 POC Glucose 194 H 151 H 130 H Labs and MARs reviewed by me EKG Reviewed by me: Yes (Tele: NSR) Hospitalist ROS - Review of Systems ROS unobtainable: due to mental status - Medication Medications: Active Medications Generic Name Dose Route Start Last Admin Trade Name Freq PRN Reason Stop Dose Admin Albuterol Sulfate 2.5 mg 09/26/19 20:36 09/30/19 02:34 Ventolin NEB 2.5 mg [id number] PRN Administration Wheezing Albuterol/Ipratropium 3 ml 09/27/19 01:00 10/06/19 11:50 Duoneb NEB 3 ml [id number] ELISABETH Administration Albuterol/Ipratropium 3 ml 10/06/19 04:02 10/06/19 04:20 Duoneb EZPAP 3 ml [id number] PRN Administration SOB &/or Wheezing Amiodarone HCl 400 mg 09/29/19 21:00 10/06/19 09:28 Cordarone PO Not Given BID [facility] Aspirin 81 mg 09/27/19 09:00 10/06/19 09:27 Aspirin Chewable PO Not Given DAILY [facility] Atorvastatin Calcium 80 mg 09/26/19 21:00 10/05/19 20:55 Lipitor PO 80 mg HS [facility] Administration Carvedilol 3.125 mg 09/26/19 21:00 10/06/19 13:27 Coreg PO Not Given BID [facility] Famotidine 20 mg 09/26/19 21:00 10/06/19 09:26 Pepcid PO Not Given BID [facility] Ferrous Sulfate 325 mg 10/02/19 08:00 10/06/19 09:28 Feosol PO Not Given QA-WM [facility] Folic Acid 1 mg 10/05/19 09:00 10/06/19 09:25 Folvite PO Not Given DAILY [facility] Piperacillin Sod/Tazobactam 100 mls @ 200 mls/hr 10/06/19 12:00 10/06/19 13: 22 Sod 3.375 gm/ Sodium Chloride IVPB 100 mls Q6HR [facility] Administration Furosemide 100 mg/ Sodium 100 mls @ 5 mls/hr 10/06/19 12:00 10/06/19 13:00 Chloride IVPB 100 mls INF [facility] Administration Insulin Human Lispro 0 units 09/26/19 20:36 10/06/19 05:57 Humalog SC 2 unit .MILD SLIDING SCALE PRN Administration Mild Correctional Scale Insulin Human Lispro 0 units 09/26/19 20:36 09/28/19 20:06 Humalog SC 2 unit .BEDTIME SLIDING SC PRN Administration Bedtime Correctional Scale Lisinopril 5 mg 10/04/19 09:00 10/06/19 09:25 Zestril PO Not Given DAILY [facility] Oxazepam 10 mg 10/04/19 15:00 10/06/19 14:28 Serax PO 10 mg TID [facility] Administration Senna/Docusate Sodium 2 tab 09/26/19 20:36 09/29/19 08:44 Senokot S PO 2 tab BID PRN Administration Constipation Sodium Chloride 10 ml 09/26/19 20:01 10/03/19 20:33 Flush - Normal Saline IVF 10 ml PRN PRN Administration Saline Flush Thiamine HCl 100 mg 10/05/19 09:00 10/06/19 09:24 Thiamine PO Not Given DAILY ELISABETH - Exam General - other findings: sleepy Eye: anicteric sclera ENT: moist mucosa Neck: no thyromegaly, no lymphadenopathy Heart: RRR Respiratory: CTAB Gastrointestinal: soft, non-tender Skin: no rashes Psychiatric - other findings: Unable to assess Hosp A/P - Plan - Plan (1) Hypotension Status: Acute (2) Acute on chronic respiratory failure with hypoxia Code(s): J96.21 - ACUTE AND CHRONIC RESPIRATORY FAILURE WITH HYPOXIA Status: Acute (3) NSTEMI (non-ST elevated myocardial infarction) Code(s): I21.4 - NON-ST ELEVATION (NSTEMI) MYOCARDIAL INFARCTION Status: Acute (4) Acute exacerbation of emphysema Code(s): J43.9 - EMPHYSEMA, UNSPECIFIED Status: Acute (5) Iron deficiency Status: Chronic (6) Hyperlipidemia Code(s): E78.5 - HYPERLIPIDEMIA, UNSPECIFIED Status: Chronic (7) Acute diastolic congestive heart failure Status: Resolved - Plan s/p colectomy for malignancy Pt hypotensive today. Now has central line, art line and pressors. Echo unremarkable. No evidence of DVT. Pt has bandemia. Will add IV vancomycin and continue IV Zosyn. Repeat blood cultures.
[2019-10-06] MEDS ORDERED: Vancomycin 1 GM in Premix Bag 1 BAG IVPB SCH (17:45)
[2019-10-06] MEDS: Vancomycin HCl 1.25 GM in Sodium Chloride 0.9% 250 ML 250 ML IVPB SCH (18:40)
[2019-10-06] MEDS: Enoxaparin Sodium 30 MG/0.3 ML SYRINGE SC SCH (21:29)
[2019-10-06] MEDS: Atorvastatin Calcium 40 MG TAB PO SCH (21:30)
--- NOTE | 2019-10-07 00:34 | PRG ---
DATE OF SERVICE: 10/06/2019 SUBJECTIVE: The patient is currently on the critical care unit. She was moved from the surgical floor today after being noted in morning rounds that she was hypotensive and hypoxic. She was brought to the CCU where she underwent central line and arterial line placement, was given boluses of IV fluids and albumin and then started on a Lasix drip. She has maintained her blood pressure above 100 systolic. Urinary output has been greater than 100 an hour, oxygen saturation on BiPAP is above 90. PHYSICAL EXAMINATION: GENERAL: The patient is resting comfortably in bed. When I entered the room, she was somnolent, but did wake up and open her eyes to verbal stimuli. She will follow basic commands and during my second visit, she was awake enough that she told me that she was cold and ask that I replace her blankets. Once the nurse and I replaced her blanket, she thanked us and said that was much better. LUNGS: Scattered rhonchi bilaterally. HEART: Regular rate and rhythm. ABDOMEN: Soft, nontender with active bowel sounds. Incision is clean, dry, and intact. ASSESSMENT/PLAN: 1. Status post exploratory laparotomy, right hemicolectomy with primary ileocolectomy, colostomy, and placement of feeding nasojejunal tube. 2. Hypoxia, improving on BiPAP. Possibly related to fluid overload, congestive heart failure exacerbation, and/or chronic obstructive pulmonary disease exacerbation. 3. History of congestive heart failure and chronic obstructive pulmonary disease. PLAN: Will be to continue supportive care, BiPAP. The patient's CVP dropped to 4, at which time we held her Lasix IV drip and we will continue to monitor her urinary output and CVP. We will check labs in the morning. Repeat chest x-ray and hopefully be able to start weaning the patient from BiPAP. Job ID: [id number]
[2019-10-07] MEDS: Piperacillin/Tazobactam 3.375 GM in Sodium Chloride 0.9% 100 ML IVPB SCH ×4 (00:36→18:04)
[2019-10-07 05:32] LABS: Anion Gap 14 mmol/L (10-20); BUN (Urea Nitrogen) 16 mg/dL (9.8-20.1); Calc. Creatinine Clearance 63 mL/min (70-130); Calcium 8.5 mg/dL (7.8-10.44); Carbon Dioxide 28 mmol/L (23-31); Chloride 100 mmol/L (98-107); Estimated GFR-MDRD 67; Glucose 116 mg/dL (83-110); Sodium 139 mmol/L (136-145)
[2019-10-07 05:36] LABS: Band 14 % (5-11); Hemoglobin 8.3 g/dL (12.0-16.0); Hypochromia SLIGHT = 6-15 cells (100X) (0-5/hpf); Lymphocytes 9 % (21-51); MDiff Complete? YES; Mean Corpuscular HGB CONC 32.8 g/dL (32.0-36.0); Mean Corpuscular Hemoglobin 29.4 pg (27.0-31.0); Mean Corpuscular Volume 89.8 fL (78.0-98.0); Mean Platelet Volume 9.5 fL (7.4-10.4); Monocytes 6 % (0-10); Neutrophil 71 % (42-75); Platelet Count 307 thou/uL (130-400); Platelet Morphology Comment Appears Adequate; RBC Distribution Width 18.1 % (11.5-14.5); Red Blood Cell (RBC) Count 2.81 mill/uL (4.20-5.40); Target Cells SLIGHT = 2-5 cells (100X) (0-1/hpf)
[2019-10-07 05:37] LABS: Phosphorus 3.2 mg/dL (2.3-4.7)
[2019-10-07 05:38] LABS: Potassium 2.9 mmol/L (3.5-5.1)
[2019-10-07] MEDS ORDERED: Potassium Chloride 40 MEQ in Premix Bag 1 BAG IVPB SCH (06:00)
[2019-10-07] MEDS: Lisinopril 5 MG TAB PO SCH (08:33)
[2019-10-07] MEDS: Amiodarone 200 MG TAB PO SCH (08:33)
[2019-10-07] MEDS: Thiamine 100 MG TAB PO SCH (08:34)
[2019-10-07] MEDS: Folic Acid 1 MG TAB PO SCH (08:34)
[2019-10-07] MEDS: Ferrous Sulfate 325 MG TAB PO SCH (08:34)
[2019-10-07] MEDS: Carvedilol 3.125 MG TAB PO SCH (08:34)
[2019-10-07] MEDS: Aspirin Chewable 81 MG TAB PO SCH (08:34)
[2019-10-07] MEDS: Enoxaparin Sodium 30 MG/0.3 ML SYRINGE SC SCH ×2 (08:34→20:47)
[2019-10-07] MEDS: Oxazepam 10 MG CAP PO SCH ×3 (08:34→20:47)
[2019-10-07] MEDS: Famotidine 20 MG TAB PO SCH ×2 (08:34→20:45)
--- NOTE | 2019-10-07 09:18 | RAD ---
PORTABLE CHEST: COMPARISON: Prior day's study. HISTORY: Shortness of breath. FINDINGS: Heart size is enlarged. A Dobbhoff-type feeding tube is below the hemidiaphragm. Left subclavian li ne is unchanged in position. Pulmonary vessels do not appear engorged. There are no signs of overt edema. Interstitial lung changes appear less prominent than the prior exam. IMPRESSION: Cardiomegaly with decreasing pulmonary vascular engorgement. POS: TPC
--- NOTE | 2019-10-07 10:08 | PRG ---
DATE OF SERVICE: 10/06/2019 SUBJECTIVE: Ms. Infante is a 74-year-old female, status post exploratory laparotomy and right hemicolectomy with primary ileostomy and placement of feeding NJ tube. The patient also had a history of non-STEMI on admission, resolved. Last night , the patient developed low blood pressure and she also had shortness of breath, low oxygen saturation. The patient developed confusion and pulled out her NJ tube. Earlier this morning, the patient's blood pressure is around 80s, O2 saturation is 80% to 90%. The patient was resuscitated with fluids,central line, art line, and vasopressor and also the patient will be put on BiPAP and the treatment was ordered by Dr. Montiel on bedside. OBJECTIVE: GENERAL: The patient is lying down in bed, still lethargic and confused. GCS 14. VITAL SIGNS: Heart rate is 80, respiratory rate is 30, O2 saturation is 90% over 4 L cannula, and blood pressure 80/50. LUNGS: Clear bilaterally. HEART: Regular rate and rhythm. ABDOMEN: Soft and nondistended. EXTREMITIES: Neurovascularly intact x4. NEUROLOGIC: No focal neurology deficits. LABORATORY DATA: Laboratory shows white count 23.1, hemoglobin 8.7. Sodium 139 , potassium 3.8, creatinine 0.96, glucose 159. Troponin two times 0.95 and 0.58. EKG, no changes seen admission. Echo, EF is 45% to 50%. ASSESSMENT: Status post exploratory with hemicolectomy, primary anastomosis and ileostomy, lgi-IH-awjjetqhy myocardial infarction stable, and acute congestive heart failure. PLAN: Plan will be aggressive resuscitation, CPAP gentle diuresis. Initiate vancomycin per hospitalist. Initiate DVT prophylaxis with Lovenox. The patient was seen, evaluated, and treated by Dr. Montiel on round this morning. Job ID: [id number] [facility]
[2019-10-07 10:53] LABS: Anion Gap 13 mmol/L (10-20); BUN (Urea Nitrogen) 16 mg/dL (9.8-20.1); Calc. Creatinine Clearance 53 mL/min (70-130); Calcium 8.5 mg/dL (7.8-10.44); Carbon Dioxide 29 mmol/L (23-31); Chloride 100 mmol/L (98-107); Estimated GFR-MDRD 58; Glucose 121 mg/dL (83-110); Potassium 3.6 mmol/L (3.5-5.1); Sodium 138 mmol/L (136-145)
[2019-10-07] MEDS: Furosemide 100 MG in Sodium Chloride 0.9% 90 ML IVPB SCH (10:56)
[2019-10-07] MEDS ORDERED: Potassium Phosphate 15 MMOL in Sodium Chloride 0.9% 250 ML 250 ML IVPB SCH (11:30)
[2019-10-07] MEDS ORDERED: Amiodarone 150 MG, Admixture Fee 1 EACH in Dextrose 5% in Water 100 ML IVPB SCH (13:30)
--- NOTE | 2019-10-07 13:30 | EKG ---
Test Reason : Blood Pressure : / mmHG Vent. Rate : 103 BPM Atrial Rate : 103 BPM P-R Int : 172 ms QRS Dur : 100 ms QT Int : 372 ms P-R-T Axes : 078 078 100 degrees QTc Int : 487 ms Sinus tachycardia Abnormal ECG Confirmed by MARILEE MONTEIRO DO ([id number]), video effects editor DANIELA RANDOLPH ([id number]) on 10/07/2019 1:29:38 PM Referred By: Confirmed By:MARILEE MONTEIRO DO
[2019-10-07] MEDS: Amiodarone 450 MG, Admixture Fee 1 EACH in Dextrose 5% in Water 250 ML IVPB SCH ×2 (13:38→23:52)
[2019-10-07] MEDS ORDERED: Metolazone 2.5 MG TAB PO SCH (15:45)
--- NOTE | 2019-10-07 15:56 | PDOC.HOSPP ---
- Subjective Encounter Date: 10/07/19 Encounter Time: :20 Subjective: Pt seen for followup re:acute on chronic hypoxic respiratory failure. Feels better today. - Objective Vital Signs & Weight: Vital Signs (12 hours) Temp Pulse Resp Pulse Ox 10/07/19 11:54 83 29 H 100 10/07/19 08:33 83 10/07/19 08:00 98.5 F 95 10/07/19 07:44 83 23 H 100 Weight Admit Weight 139 lb 14.4 oz Weight 140 lb 10.479 oz Most Recent Monitor Data Heart Rate from ECG 80 NIBP 98/52 NIBP BP-Mean 85 Respiration from ECG 28 SpO2 91 I&O: 10/06/19 10/07/19 10/08/19 06:59 06:59 06:59 Intake Total 1875 2556.9 320 Output Total 532 3025 750 Balance 1343 -468.1 -430 Result Diagrams: 10/07/19 04:10 10/07/19 10:13 Additional Labs: Accuchecks 10/07/19 10/07/19 10/06/19 11:33 06:32 22:37 POC Glucose 138 H 113 H 128 H 10/06/19 18:47 POC Glucose 157 H Labs and MARs reviewed by ok Hospitalist ROS - Review of Systems Cardiovascular: denies: chest pain, palpitations, orthopnea, paroxysmal noc. dyspnea, edema, light headedness Genitourinary: denies: dysuria, frequency, incontinence, hematuria, retention - Medication Medications: Active Medications Generic Name Dose Route Start Last Admin Trade Name Freq PRN Reason Stop Dose Admin Albuterol Sulfate 2.5 mg 09/26/19 20:36 09/30/19 02:34 Ventolin NEB 2.5 mg [id number] PRN Administration Wheezing Albuterol/Ipratropium 3 ml 09/27/19 01:00 10/07/19 11:54 Duoneb NEB 3 ml [id number] ELISABETH Administration Albuterol/Ipratropium 3 ml 10/06/19 04:02 10/06/19 04:20 Duoneb EZPAP 3 ml [id number] PRN Administration SOB &/or Wheezing Aspirin 81 mg 09/27/19 09:00 10/07/19 08:34 Aspirin Chewable PO 81 mg DAILY ELISABETH Administration Atorvastatin Calcium 80 mg 09/26/19 21:00 10/06/19 21:30 Lipitor PO 80 mg HS ELISABETH Administration Enoxaparin Sodium 30 mg 10/06/19 21:00 10/07/19 08:34 Lovenox SC 30 mg BID ELISABETH Administration Famotidine 20 mg 09/26/19 21:00 10/07/19 08:34 Pepcid PO 20 mg BID ELISABETH Administration Ferrous Sulfate 325 mg 10/02/19 08:00 10/07/19 08:34 Feosol PO 325 mg QAM-WM ELISABETH Administration Folic Acid 1 mg 10/05/19 09:00 10/07/19 08:34 Folvite PO 1 mg DAILY ELISABETH Administration Piperacillin Sod/Tazobactam 100 mls @ 200 mls/hr 10/06/19 12:00 10/07/19 12: 39 Sod 3.375 gm/ Sodium Chloride IVPB 100 mls Q6HR ELISABETH Administration Furosemide 100 mg/ Sodium 100 mls @ 5 mls/hr 10/06/19 12:00 10/07/19 10:56 Chloride IVPB 100 mls INF ELISABETH Administration Vancomycin HCl 1.25 gm/ Sodium 250 mls @ 166.667 mls/hr 10/06/19 19:00 18:40 Chloride IVPB 250 mls 1900 ELISABETH Administration Potassium Phosphate 15 mmol/ 255 mls @ 62.5 mls/hr 10/07/19 11:30 10/07/19 12 :35 Sodium Chloride IVPB 10/07/19 16:00 255 mls NOW ELISABETH Administration Amiodarone HCl 450 mg/ 259 mls @ 0 mls/hr 10/07/19 13:30 10/07/19 13:38 Miscellaneous Medication 1 IVPB 259 mls each/ Dextrose/Water INF ELISABETH Administration Protocol As Directed Insulin Human Lispro 0 units 09/26/19 20:36 10/06/19 18:45 Humalog SC 2 unit .MILD SLIDING SCALE PRN Administration Mild Correctional Scale Insulin Human Lispro 0 units 09/26/19 20:36 09/28/19 20:06 Humalog SC 2 unit .BEDTIME SLIDING SC PRN Administration Bedtime Correctional Scale Metolazone 2.5 mg 10/07/19 15:45 10/07/19 15:53 Zaroxolyn PO 10/07/19 17:00 2.5 mg NOW ELISABETH Administration Oxazepam 10 mg 10/04/19 15:00 10/07/19 14:46 Serax PO 10 mg TID ELISABETH Administration Senna/Docusate Sodium 2 tab 09/26/19 20:36 09/29/19 08:44 Senokot S PO 2 tab BID PRN Administration Constipation Sodium Chloride 10 ml 09/26/19 20:01 10/03/19 20:33 Flush - Normal Saline IVF 10 ml PRN PRN Administration Saline Flush Thiamine HCl 100 mg 10/05/19 09:00 10/07/19 08:34 Thiamine PO 100 mg DAILY ELISABETH Administration - Exam General Appearance: awake alert Eye: anicteric sclera ENT: moist mucosa Neck: supple Heart: RRR Respiratory: CTAB Gastrointestinal: soft, non-tender Gastrointestinal - other findings: ostomy Psychiatric: normal affect, normal behavior Hosp A/P - Plan - Assessment (1) Acute on chronic respiratory failure with hypoxia Code(s): J96.21 - ACUTE AND CHRONIC RESPIRATORY FAILURE WITH HYPOXIA Status: Acute (2) NSTEMI (non-ST elevated myocardial infarction) Code(s): I21.4 - NON-ST ELEVATION (NSTEMI) MYOCARDIAL INFARCTION Status: Acute (3) Acute exacerbation of emphysema Code(s): J43.9 - EMPHYSEMA, UNSPECIFIED Status: Acute (4) Iron deficiency Status: Chronic (5) Hyperlipidemia Code(s): E78.5 - HYPERLIPIDEMIA, UNSPECIFIED Status: Chronic (6) Acute diastolic congestive heart failure Status: Resolved (7) Hypotension Status: Resolved - Plan s/p colectomy for cecal malignancy Hypotension resolved. Continue IV vancomycin and IV Zosyn, follow repeat blood cultures.. Continue aspirin. Pt is on amiodarone.
[2019-10-07] MEDS: HumaLOG 300 UNITS/3 ML VIAL SC PRN ×2 (16:02→21:31)
--- NOTE | 2019-10-07 17:44 | PRG ---
DATE OF SERVICE: 10/07/2019 SUBJECTIVE: Ms. Infante is a 74-year-old female, status post exploratory laparotomy and right hemicolectomy and primary ileostomy. The patient also have non-STEMI, underwent PCI. The patient developed acute CHF exacerbation, required transfer to ICU, resuscitation. Last night, the patient was uneventful. . However, her vital signs stable. This morning, the patient look alert and awake, no acute respiratory distress on nasal cannula. The patient is afebrile and urinary output is adequate. The patient had one bowel, soft stool, normal color. OBJECTIVE: GENERAL: Currently, the patient lying in bed comfortable with no acute respiratory distress. VITAL SIGNS: Temperature 98.5, heart rate 86, respiratory rate 21, O2 saturation 100 on 4 L, and blood pressure 114/41. LUNGS: Clear bilaterally. HEART: Regular rate and rhythm. ABDOMEN: Soft and nondistended. Abdominal midline incision clean, dry, and intact. Bowel sounds hypoactive. EXTREMITIES: Neurovascularly intact x4. NEUROLOGIC: No focal neurology deficits. LABORATORY DATA: This morning show white count 17,000, hemoglobin 8.3, and platelet is 307. Sodium 139, potassium 2.9 and after replacement is 3.6, and creatinine 0.95. ASSESSMENT: 1. Status post exploratory laparotomy with right hemicolectomy and ileostomy. 2. Non-ST segment elevation myocardial infarction, acute respiratory distress, congestive heart failure exacerbation on bilevel positive airway pressure and Lasix drip stable. 3. History of congestive heart failure and chronic obstructive pulmonary disease. PLAN: We will continue supportive care and BiPAP at nighttime. Continue Lasix drip. Continue supportive care. Continue DVT prophylaxis. The patient was seen and evaluated with Dr. Montiel on round this morning. Job ID: [id number]
[2019-10-07] MEDS ORDERED: Acetaminophen 325 MG TAB PO SCH (18:00)
[2019-10-07] MEDS ORDERED: Potassium Chloride 20 MEQ TAB PO SCH (18:15)
[2019-10-07] MEDS: Vancomycin HCl 1.25 GM in Sodium Chloride 0.9% 250 ML 250 ML IVPB SCH (18:15)
[2019-10-07] MEDS: Acetaminophen 650 MG/20.3 ML UDCUP PO SCH (18:17)
[2019-10-07] MEDS: Atorvastatin Calcium 40 MG TAB PO SCH (20:47)
[2019-10-08] MEDS: Piperacillin/Tazobactam 3.375 GM in Sodium Chloride 0.9% 100 ML IVPB SCH ×4 (00:02→17:14)
[2019-10-08] MEDS: Acetaminophen 650 MG/20.3 ML UDCUP PO SCH ×4 (00:04→17:14)
--- NOTE | 2019-10-08 00:30 | PRG ---
DATE OF SERVICE: SUBJECTIVE: Patient remains in the critical care unit. She is status post exploratory laparotomy with right hemicolectomy and primary ileostomy. The patient remains on a Lasix drip and BiPAP at night, reportedly had no issues during the day. She was able to be off the BiPAP and she tolerated this. Patient did have one small bowel movement today. PHYSICAL EXAMINATION: VITAL SIGNS: Stable. Patient is afebrile. GENERAL: The patient is resting comfortably in bed. She was asleep when I entered the room. She opened her eyes to my verbal stimuli, nodded her head that she did not have any complaints. LUNGS: Her lungs had scant scattered wheezes. ABDOMEN: Soft with active bowel sounds. EXTREMITIES: Patient is moving all 4 extremities. There is no edema noted. She is tolerating her BiPAP. ASSESSMENT: 1. Status post exploratory laparotomy with right hemicolectomy and ileostomy. 2. Status post [id number] myocardial infarction. 3. Status post congestive heart failure exacerbation and history of chronic obstructive pulmonary disease, on BiPAP and Lasix drip. PLAN: Plan will be to continue supportive care, BiPAP at night, and discuss weaning or discontinuing her Lasix. Job ID: [id number]
[2019-10-08 05:06] LABS: Band 6 % (5-11); Eosinophils 1 % (0-10); Lymphocytes 16 % (21-51); MDiff Complete? YES; Mean Corpuscular HGB CONC 32.1 g/dL (32.0-36.0); Mean Corpuscular Hemoglobin 28.7 pg (27.0-31.0); Mean Corpuscular Volume 89.2 fL (78.0-98.0); Mean Platelet Volume 9.2 fL (7.4-10.4); Monocytes 9 % (0-10); Neutrophil 68 % (42-75); Phosphorus 3.3 mg/dL (2.3-4.7); Platelet Count 308 thou/uL (130-400); Platelet Morphology Comment Appears Adequate; RBC Distribution Width 17.5 % (11.5-14.5); RBC Morphology Normal; Red Blood Cell (RBC) Count 2.79 mill/uL (4.20-5.40); White Blood Cell (WBC) Count 20.1 thou/uL (4.8-10.8)
[2019-10-08 05:06] LABS: Anion Gap 13 mmol/L (10-20); BUN (Urea Nitrogen) 29 mg/dL (9.8-20.1); Calc. Creatinine Clearance 44 mL/min (70-130); Calcium 8.9 mg/dL (7.8-10.44); Carbon Dioxide 33 mmol/L (23-31); Chloride 95 mmol/L (98-107); Estimated GFR-MDRD 47; Glucose 163 mg/dL (83-110); Sodium 138 mmol/L (136-145)
[2019-10-08 05:19] LABS: Potassium 2.9 mmol/L (3.5-5.1)
[2019-10-08] MEDS: Furosemide 100 MG in Sodium Chloride 0.9% 90 ML IVPB SCH (05:54)
[2019-10-08] MEDS: HumaLOG 300 UNITS/3 ML VIAL SC PRN (06:08)
[2019-10-08] MEDS ORDERED: Potassium Chloride 40 MEQ in Premix Bag 1 BAG IVPB SCH (06:45)
[2019-10-08] MEDS ORDERED: Metolazone 2.5 MG TAB PO SCH ×2 (08:30)
[2019-10-08] MEDS: Aspirin Chewable 81 MG TAB PO SCH (09:31)
[2019-10-08] MEDS: Thiamine 100 MG TAB PO SCH (09:31)
[2019-10-08] MEDS: Ferrous Sulfate 325 MG TAB PO SCH (09:31)
[2019-10-08] MEDS: Famotidine 20 MG TAB PO SCH ×2 (09:31→20:25)
[2019-10-08] MEDS: Enoxaparin Sodium 30 MG/0.3 ML SYRINGE SC SCH ×2 (09:31→20:24)
[2019-10-08] MEDS: Folic Acid 1 MG TAB PO SCH (09:32)
[2019-10-08] MEDS: Oxazepam 10 MG CAP PO SCH ×2 (09:32→20:25)
--- NOTE | 2019-10-08 10:44 | RAD ---
PORTABLE CHEST: Date: 10/08/2019 HISTORY: Shortness of breath. COMPARISON: 10/07/2019 exam. FINDINGS: Left subclavian line is present. Dobbhoff feeding tube is below the hemidiaphragm. Heart size is enla rged. Patient is rather rotated on this examination. There appear to be some increased parenchymal ch anges in the left base as compared to the prior exam. IMPRESSION: Suggestion of possible worsening parenchymal change in the left base, although this may entirely be r elated to rotation as these changes may have just been obscured by heart border on the previous exam where the patient was less rotated. POS: TPC
--- NOTE | 2019-10-08 11:44 | PDOC.HOSPP ---
- Subjective Encounter Date: 10/08/19 Encounter Time: 09:40 Subjective: Pt seen for followup re: hypoxic respiratory failure. Feels better. - Objective Vital Signs & Weight: Vital Signs (12 hours) Pulse Resp Pulse Ox 10/08/19 07:08 65 10/08/19 07:07 71 20 100 10/08/19 02:09 66 100 10/08/19 02:08 100 Weight Admit Weight 139 lb 14.4 oz Weight 137 lb 12.623 oz Most Recent Monitor Data Heart Rate from ECG 69 NIBP 90/41 NIBP BP-Mean 46 Respiration from ECG 25 SpO2 92 I&O: 10/07/19 10/08/19 10/09/19 06:59 06:59 06:59 Intake Total 2556.9 2403.6 Output Total 3025 3517 Balance -468.1 -1113.4 Result Diagrams: 10/08/19 04:25 10/08/19 03:30 Additional Labs: Accuchecks 10/08/19 10/08/19 10/07/19 09:53 06:10 20:53 POC Glucose 157 H 182 H 184 H 10/07/19 16:06 POC Glucose 172 H Labs and MARs reviewed by me EKG Reviewed by me: Yes (Tele: a. brandon) Hospitalist ROS - Review of Systems Cardiovascular: denies: chest pain, palpitations, orthopnea, paroxysmal noc. dyspnea, edema, light headedness Gastrointestinal: denies: nausea, vomiting, abdominal pain, diarrhea, constipation, melena, hematochezia - Medication Medications: Active Medications Generic Name Dose Route Start Last Admin Trade Name Freq PRN Reason Stop Dose Admin Acetaminophen 650 mg 10/07/19 18:00 10/08/19 05:47 Tylenol Elixir PO 650 mg Q6HR ELISABETH Administration Albuterol Sulfate 2.5 mg 09/26/19 20:36 09/30/19 02:34 Ventolin NEB 2.5 mg [id number] PRN Administration Wheezing Albuterol/Ipratropium 3 ml 09/27/19 01:00 10/08/19 07:07 Duoneb NEB 3 ml [id number] ELISABETH Administration Albuterol/Ipratropium 3 ml 10/06/19 04:02 10/06/19 04:20 Duoneb EZPAP 3 ml [id number] PRN Administration SOB &/or Wheezing Aspirin 81 mg 09/27/19 09:00 10/08/19 09:31 Aspirin Chewable PO 81 mg DAILY ELISABETH Administration Atorvastatin Calcium 80 mg 09/26/19 21:00 10/07/19 20:47 Lipitor PO 80 mg HS ELISABETH Administration Enoxaparin Sodium 30 mg 10/06/19 21:00 10/08/19 09:31 Lovenox SC 30 mg BID ELISABETH Administration Famotidine 20 mg 09/26/19 21:00 10/08/19 09:31 Pepcid PO 20 mg BID ELISABETH Administration Ferrous Sulfate 325 mg 10/02/19 08:00 10/08/19 09:31 Feosol PO 325 mg QAM-WM ELISABETH Administration Folic Acid 1 mg 10/05/19 09:00 10/08/19 09:32 Folvite PO 1 mg DAILY ELISABETH Administration Piperacillin Sod/Tazobactam 100 mls @ 200 mls/hr 10/06/19 12:00 10/08/19 05: 47 Sod 3.375 gm/ Sodium Chloride IVPB 100 mls Q6HR ELISABETH Administration Amiodarone HCl 450 mg/ 259 mls @ 0 mls/hr 10/07/19 13:30 10/07/19 23:52 Miscellaneous Medication 1 IVPB 259 mls each/ Dextrose/Water INF ELISABETH Administration Protocol As Directed Insulin Human Lispro 0 units 09/26/19 20:36 10/08/19 06:08 Humalog SC 2 unit .MILD SLIDING SCALE PRN Administration Mild Correctional Scale Insulin Human Lispro 0 units 09/26/19 20:36 09/28/19 20:06 Humalog SC 2 unit .BEDTIME SLIDING SC PRN Administration Bedtime Correctional Scale Senna/Docusate Sodium 2 tab 09/26/19 20:36 09/29/19 08:44 Senokot S PO 2 tab BID PRN Administration Constipation Sodium Chloride 10 ml 09/26/19 20:01 10/03/19 20:33 Flush - Normal Saline IVF 10 ml PRN PRN Administration Saline Flush Thiamine HCl 100 mg 10/05/19 09:00 10/08/19 09:31 Thiamine PO 100 mg DAILY ELISABETH Administration - Exam General Appearance: awake alert Eye: anicteric sclera ENT: moist mucosa Neck: supple Heart: no rubs, irregular Respiratory: CTAB Gastrointestinal: soft, non-tender Gastrointestinal - other findings: ostomy Psychiatric: normal affect, normal behavior Hosp A/P - Plan - Assessment (1) Acute on chronic respiratory failure with hypoxia Code(s): J96.21 - ACUTE AND CHRONIC RESPIRATORY FAILURE WITH HYPOXIA Status: Acute (2) NSTEMI (non-ST elevated myocardial infarction) Code(s): I21.4 - NON-ST ELEVATION (NSTEMI) MYOCARDIAL INFARCTION Status: Acute (3) Acute exacerbation of emphysema Code(s): J43.9 - EMPHYSEMA, UNSPECIFIED Status: Acute (4) Hypokalemia Status: Acute (5) Hyperlipidemia Code(s): E78.5 - HYPERLIPIDEMIA, UNSPECIFIED Status: Chronic (6) Acute diastolic congestive heart failure Status: Resolved (7) Hypotension Status: Resolved (8) Iron deficiency Status: Chronic - Plan s/p colectomy for cecal malignancy Replace potassium Continue IV vancomycin and IV Zosyn, follow repeat blood cultures.. Continue aspirin. Pt is on amiodarone.
[2019-10-08] MEDS: Amiodarone 200 MG TAB PO SCH ×2 (17:13→21:30)
[2019-10-08] MEDS: Spironolactone 25 MG TAB PO SCH (17:14)
--- NOTE | 2019-10-08 17:26 | PRG ---
DATE OF SERVICE: 10/08/2019 SUBJECTIVE: Ms. Infante is a 74-year-old female, status post exploratory laparotomy and right hemicolectomy and primary ileostomy. Last night, the patient was on BiPAP, tolerated with her tube feeding. She had one bowel movement yesterday. Vital signs have been stable. Her urine is adequate, total urine put out is 3500 yesterday. OBJECTIVE: GENERAL: Currently, the patient lying in bed comfortable with no acute respiratory distress. The patient is on BiPAP, breathing comfortably. VITAL SIGNS: Heart rate is 64, respiratory rate 18, O2 saturation 100 on 2 L, and blood pressure 115/66. LUNGS: Clear bilaterally. HEART: Regular rate and rhythm. ABDOMEN: Soft and nondistended. EXTREMITIES: Neurovascularly intact x4. NEUROLOGIC: No focal neurology deficits. ASSESSMENT: 1. 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 2. Non-ST elevation myocardial infarction, stable. 3. Acute respiratory distress and acute congestive heart failure on chronic congestive heart failure exacerbation, improved. PLAN: We will continue supportive care. Continue pain control. Continue DVT prophylaxis. The patient was seen with Dr. Montiel on round this morning. Job ID: [id number]
[2019-10-08 18:17] LABS: Vancomycin, Trough 9.9 ug/mL
[2019-10-08 19:15] LABS: Anion Gap 15 mmol/L (10-20); BUN (Urea Nitrogen) 32 mg/dL (9.8-20.1); Calc. Creatinine Clearance 42 mL/min (70-130); Calcium 9.2 mg/dL (7.8-10.44); Carbon Dioxide 32 mmol/L (23-31); Chloride 93 mmol/L (98-107); Estimated GFR-MDRD 45; Glucose 127 mg/dL (83-110); Sodium 137 mmol/L (136-145)
[2019-10-08] MEDS ORDERED: Potassium Chloride 40 MEQ in Sodium Chloride 0.9% 250 ML 250 ML IVPB SCH (19:45)
[2019-10-08] MEDS: Atorvastatin Calcium 40 MG TAB PO SCH (20:25)
[2019-10-09] MEDS: Piperacillin/Tazobactam 3.375 GM in Sodium Chloride 0.9% 100 ML IVPB SCH ×3 (00:17→12:53)
[2019-10-09] MEDS: Acetaminophen 650 MG/20.3 ML UDCUP PO SCH ×5 (00:17→23:56)
--- NOTE | 2019-10-09 00:46 | PRG ---
DATE OF SERVICE: 10/09/2019 HISTORY: The patient is currently on the IMCU. She was moved from the Critical Care Unit today. She is status post exploratory laparotomy with right hemicolectomy and primary ileocolostomy. The patient's Lasix drip was stopped today. She was improved to the point that she was able to work with Physical Therapy today. She has had her potassium replaced twice with plans on rechecking it in the morning. She did have some high residuals noted on her tube feeds, and they were being held at this time. PHYSICAL EXAMINATION: VITAL SIGNS: Stable. The patient is afebrile. GENERAL: The patient is resting comfortably in bed. The nurses report that she has just gone to sleep, and they are monitoring her oxygen saturation and will replace her on BiPAP this evening. LUNGS: Clear to auscultation bilaterally. HEART: Regular rate and rhythm. ABDOMEN: Soft, nondistended with hypoactive bowel sounds. EXTREMITIES: Neurovascularly intact x4. ASSESSMENT: 1. Status post exploratory laparotomy with right hemicolectomy and ileocolostomy. 2. Status post [id number] myocardial infarction. 3. Status post congestive heart failure exacerbation and history of chronic obstructive pulmonary disease, improved. PLAN: Plan will be to continue supportive care. BiPAP at night. Continue encouraging physical/occupational therapy, and we will monitor her bowel function and ability to tolerate tube feeds versus attempt oral intake. Job ID: [id number]
[2019-10-09 04:39] LABS: Band 10 % (5-11); Eosinophils 2 % (0-10); Hemoglobin 8.1 g/dL (12.0-16.0); Lymphocytes 8 % (21-51); MDiff Complete? YES; Mean Corpuscular HGB CONC 31.9 g/dL (32.0-36.0); Mean Corpuscular Hemoglobin 28.7 pg (27.0-31.0); Mean Corpuscular Volume 89.8 fL (78.0-98.0); Monocytes 7 % (0-10); Neutrophil 73 % (42-75); Platelet Count 349 thou/uL (130-400); Platelet Morphology Comment Appears Adequate; RBC Distribution Width 17.9 % (11.5-14.5); Red Blood Cell (RBC) Count 2.82 mill/uL (4.20-5.40); White Blood Cell (WBC) Count 17.8 thou/uL (4.8-10.8)
[2019-10-09 04:51] LABS: Anion Gap 14 mmol/L (10-20); BUN (Urea Nitrogen) 31 mg/dL (9.8-20.1); Calc. Creatinine Clearance 43 mL/min (70-130); Calcium 8.9 mg/dL (7.8-10.44); Carbon Dioxide 32 mmol/L (23-31); Chloride 96 mmol/L (98-107); Estimated GFR-MDRD 47; Glucose 103 mg/dL (83-110); Magnesium 2.1 mg/dL (1.6-2.6); Potassium 3.4 mmol/L (3.5-5.1); Sodium 139 mmol/L (136-145)
[2019-10-09 05:49] LABS: Phosphorus 4.2 mg/dL (2.3-4.7)
[2019-10-09] MEDS ORDERED: Potassium Chloride 20 MEQ in Premix Bag 1 BAG IVPB SCH (07:00)
[2019-10-09] MEDS: Oxazepam 10 MG CAP PO SCH ×2 (08:30→20:27)
[2019-10-09] MEDS: Spironolactone 25 MG TAB PO SCH ×2 (08:30→17:43)
[2019-10-09] MEDS: Thiamine 100 MG TAB PO SCH (08:30)
[2019-10-09] MEDS: Amiodarone 200 MG TAB PO SCH ×3 (08:30→20:32)
[2019-10-09] MEDS: Ferrous Sulfate 325 MG TAB PO SCH (08:30)
[2019-10-09] MEDS: Enoxaparin Sodium 30 MG/0.3 ML SYRINGE SC SCH ×2 (08:31→21:29)
[2019-10-09] MEDS: Famotidine 20 MG TAB PO SCH ×2 (08:31→09:14)
[2019-10-09] MEDS: Folic Acid 1 MG TAB PO SCH (08:31)
[2019-10-09] MEDS: Aspirin Chewable 81 MG TAB PO SCH (08:31)
--- NOTE | 2019-10-09 12:35 | PDOC.FMACP ---
Advance Care Planning - Problem (1) Acute and chronic respiratory failure with hypoxia Status: Acute Code(s): J96.21 - ACUTE AND CHRONIC RESPIRATORY FAILURE WITH HYPOXIA (2) Acute congestive heart failure Status: Acute Code(s): I50.9 - HEART FAILURE, UNSPECIFIED Qualifiers: Heart failure type: diastolic Qualified Code(s): I50.31 - Acute diastolic ( congestive) heart failure (3) Acute exacerbation of emphysema Status: Acute Code(s): J43.9 - EMPHYSEMA, UNSPECIFIED - Note Participants: patient, family, palliative care Summary: Advanced Care Planning was discussed. The diagnosis, prognosis and goals of care were discussed. Appropriate forms and documentation to accomplish the goals of care were discussed. All questions were answered. The Palliative Care Team will be engaged to assist with completion of any outstanding forms that are needed. Discussed with patient and her . She wishes to remain with full resuscitation measures. Should she not be able to make a decision she desires that her MPOA is her , Gadiel Ramos. He was at bedside. Asked if they had communicated wishes if she was unable to speak for herself, they both confirmed they had but did not want to pursue specifics of conversation. Ms Infante stated she would always desire aggressive measures. Time Spent (mins): 30
[2019-10-09] MEDS: Pantoprazole 40 MG VIAL IVP SCH (12:53)
--- NOTE | 2019-10-09 13:41 | PRG ---
DATE OF SERVICE: 10/09/2019 SUBJECTIVE: Ms. Infante is a 74-year-old female, status post exploratory laparotomy, right hemicolectomy, and ileostomy. Last night, the patient has been doing good. She was on nasal cannula at night with no shortness of breath. She did not have a bowel. Tube feeding residual is 400 this morning. Her vital signs have been stable. Her urine is 2000 and she was able to walk with the physical therapy 15 feet yesterday. OBJECTIVE: GENERAL: The patient is currently lying in bed, comfortable with no acute respiratory distress. VITAL SIGNS: Temperature 97.9, heart rate 69, respiratory rate 19, O2 saturations 97% on 2 L, and blood pressure 101/54. LUNGS: Clear bilaterally. HEART: Irregular rate and irregular rhythm. ABDOMEN: Soft and nondistended. Ileostomy working. EXTREMITIES: Neurovascular intact x4. ASSESSMENT: 1. Status post exploratory laparotomy with right hemicolectomy and ileostomy. 2. Bml-HT-rgvpsimpy myocardial infarction, stable, acute respiratory distress, zyafy-ic-htntiwq congestive heart failure, chronic obstructive pulmonary disease, improved. PLAN: Continue supportive care. Continue pain control. Increase activity. The patient will be transferred to the surgical floor today. The patient was seen and evaluated with Dr. Montiel on round this morning. Job ID: [id number]
--- NOTE | 2019-10-09 14:42 | PDOC.HOSPP ---
- Subjective Encounter Date: 10/09/19 Encounter Time: 09:00 Subjective: Pt seen for followup re: respiratory failure. States she feels better. - Objective Vital Signs & Weight: Vital Signs (12 hours) Temp Pulse Pulse Pulse Resp BP BP 10/09/19 13:28 82 126/60 10/09/19 13:06 73 19 10/09/19 10:22 83 74 120/65 118/53 L 10/09/19 08:00 10/09/19 07:24 97.9 F 10/09/19 07:06 69 17 10/09/19 03:55 99.2 F Pulse Ox Pulse Ox Pulse Ox Pulse Ox 10/09/19 13:28 96 94 L 96 10/09/19 13:06 97 10/09/19 10:22 94 L 87 L 98 10/09/19 08:00 94 L 10/09/19 07:24 10/09/19 07:06 99 10/09/19 03:55 Weight Admit Weight 139 lb 14.4 oz Weight 140 lb 4.8 oz Most Recent Monitor Data Heart Rate from ECG 68 NIBP 110/58 NIBP BP-Mean 75 Respiration from ECG 23 SpO2 91 I&O: 10/08/19 10/09/19 10/10/19 06:59 06:59 06:59 Intake Total 2403.6 1600.9 Output Total 3517 2185 150 Balance -1113.4 -584.1 -150 Result Diagrams: 10/09/19 04:15 10/09/19 11:16 Additional Labs: Accuchecks 10/09/19 10/09/19 10/08/19 11:07 06:21 21:10 POC Glucose 162 H 133 H 147 H 10/08/19 17:19 POC Glucose 154 H Labs and MARs reviewed by ga Hospitalist ROS - Review of Systems Cardiovascular: denies: chest pain, palpitations, orthopnea, paroxysmal noc. dyspnea, edema, light headedness Genitourinary: denies: dysuria, frequency Skin: denies: rash, lesions, natividad, bruising - Medication Medications: Active Medications Generic Name Dose Route Start Last Admin Trade Name Freq PRN Reason Stop Dose Admin Acetaminophen 650 mg 10/07/19 18:00 10/09/19 12:53 Tylenol Elixir PO 650 mg Q6HR ELISABETH Administration Albuterol Sulfate 2.5 mg 03/10/20 20:36 09/30/19 02:34 Ventolin NEB 2.5 mg [id number] PRN Administration Wheezing Albuterol/Ipratropium 3 ml 09/27/19 01:00 10/09/19 13:06 Duoneb NEB 3 ml [id number] ELISABETH Administration Albuterol/Ipratropium 3 ml 10/06/19 04:02 10/06/19 04:20 Duoneb EZPAP 3 ml [id number] PRN Administration SOB &/or Wheezing Amiodarone HCl 400 mg 10/08/19 21:00 10/09/19 08:30 Cordarone PO 400 mg BID ELISABETH Administration Aspirin 81 mg 09/27/19 09:00 10/09/19 08:31 Aspirin Chewable PO 81 mg DAILY ELISABETH Administration Atorvastatin Calcium 80 mg 09/26/19 21:00 10/08/19 20:25 Lipitor PO 80 mg HS ELISABETH Administration Enoxaparin Sodium 30 mg 10/06/19 21:00 10/09/19 08:31 Lovenox SC 30 mg BID ELISABETH Administration Ferrous Sulfate 325 mg 10/02/19 08:00 10/09/19 08:30 Feosol PO 325 mg QAM-WM ELISABETH Administration Folic Acid 1 mg 10/05/19 09:00 10/09/19 08:31 Folvite PO 1 mg DAILY ELISABETH Administration Piperacillin Sod/Tazobactam 100 mls @ 200 mls/hr 10/06/19 12:00 10/09/19 12: 53 Sod 3.375 gm/ Sodium Chloride IVPB 100 mls Q6HR ELISABETH Administration Insulin Human Lispro 0 units 09/26/19 20:36 10/08/19 06:08 Humalog SC 2 unit .MILD SLIDING SCALE PRN Administration Mild Correctional Scale Insulin Human Lispro 0 units 09/26/19 20:36 09/28/19 20:06 Humalog SC 2 unit .BEDTIME SLIDING SC PRN Administration Bedtime Correctional Scale Ondansetron HCl 4 mg 09/26/19 20:36 10/08/19 21:42 Zofran IVP 4 mg Q6H PRN Administration Nausea/Vomiting Oxazepam 10 mg 10/08/19 21:00 10/09/19 08:30 Serax PO 10 mg BID ELISABETH Administration Pantoprazole Sodium 40 mg 10/09/19 09:00 10/09/19 12:53 Protonix IVP 40 mg DAILY ELISABETH Administration Senna/Docusate Sodium 2 tab 09/26/19 20:36 09/29/19 08:44 Senokot S PO 2 tab BID PRN Administration Constipation Sodium Chloride 10 ml 09/26/19 20:01 10/03/19 20:33 Flush - Normal Saline IVF 10 ml PRN PRN Administration Saline Flush Spironolactone 25 mg 10/08/19 17:00 10/09/19 08:30 Aldactone PO 25 mg BID-WM ELISABETH Administration Thiamine HCl 100 mg 10/05/19 09:00 10/09/19 08:30 Thiamine PO 100 mg DAILY ELISABETH Administration - Exam General Appearance: awake alert Eye: anicteric sclera ENT: no oropharyngeal lesions Neck: supple Heart: RRR Respiratory: CTAB Gastrointestinal - other findings: ostomy Skin: no rashes Psychiatric: normal affect Hosp A/P - Plan - Assessment (1) Acute on chronic respiratory failure with hypoxia Code(s): J96.21 - ACUTE AND CHRONIC RESPIRATORY FAILURE WITH HYPOXIA Status: Acute (2) NSTEMI (non-ST elevated myocardial infarction) Code(s): I21.4 - NON-ST ELEVATION (NSTEMI) MYOCARDIAL INFARCTION Status: Acute (3) Acute exacerbation of emphysema Code(s): J43.9 - EMPHYSEMA, UNSPECIFIED Status: Acute (4) Hypokalemia Status: Acute (5) Hyperlipidemia Code(s): E78.5 - HYPERLIPIDEMIA, UNSPECIFIED Status: Chronic (6) Acute diastolic congestive heart failure Status: Resolved (7) Hypotension Status: Resolved (8) Iron deficiency Status: Chronic - Plan Pt slowly improving s/p colectomy for cecal malignancy Continue IV vancomycin and IV Zosyn, repeat blood cultures negative so far. Continue aspirin. Continue amiodarone.
[2019-10-09] MEDS: Metoclopramide HCl 10 MG/2 ML VIAL IVP SCH ×2 (16:09→23:56)
[2019-10-09] MEDS ORDERED: Bacitracin Zinc Ointment 30 gm TUBE TOP SCH (16:15)
[2019-10-09] MEDS: Atorvastatin Calcium 40 MG TAB PO SCH (20:27)
[2019-10-09] MEDS ORDERED: Famotidine 20 MG TAB PO SCH (21:00)
--- NOTE | 2019-10-10 02:05 | PRG ---
DATE OF SERVICE: 10/10/2019 SUBJECTIVE: The patient is currently on the surgical floor. She is moved up from the [facility] today. She was able to work with Physical and Occupational Therapy. She has been offered Lasix drip. She is tolerating liquids. At the time of my visit, she had no complaints. She stated that she was waiting for Dr. Diaz to take a look at her thumb, which is postop from her original admission date of 2 weeks ago. The patient last night was on BiPAP for a very short period of time, and she has not required BiPAP since. Throughout the day, she has been on nasal cannula and maintaining her oxygen saturations above 90%. PHYSICAL EXAMINATION: VITAL SIGNS: Stable. The patient is afebrile. GENERAL: The patient is resting comfortably in bed. She is awake, alert, conversant since I have seen her this week. LUNGS: Clear to auscultation bilaterally with good inspiratory and expiratory effort. HEART: Regular rate and rhythm. ABDOMEN: Soft with hypoactive bowel sounds. EXTREMITIES: Neurovascularly intact x4. ASSESSMENT: 1. Status post exploratory laparotomy with right hemicolectomy and ileocolostomy. 2. Status post [id number] myocardial infarction, stable. 3. Status post congestive heart failure exacerbation and history of chronic obstructive pulmonary disease, improved. PLAN: Plan will be to continue supportive care. Encourage physical and occupational therapy and advance her diet as her bowel function returns. Job ID: [id number]
[2019-10-10] MEDS: Acetaminophen 650 MG/20.3 ML UDCUP PO SCH ×3 (05:27→17:37)
[2019-10-10 06:12] LABS: Anion Gap 14 mmol/L (10-20); BUN (Urea Nitrogen) 23 mg/dL (9.8-20.1); Calc. Creatinine Clearance 55 mL/min (70-130); Calcium 9.2 mg/dL (7.8-10.44); Carbon Dioxide 28 mmol/L (23-31); Chloride 97 mmol/L (98-107); Estimated GFR-MDRD 61; Glucose 108 mg/dL (83-110); Magnesium 2.2 mg/dL (1.6-2.6); Potassium 3.8 mmol/L (3.5-5.1); Sodium 135 mmol/L (136-145)
[2019-10-10 06:14] LABS: Band 2 % (5-11); Eosinophils 1 % (0-10); Hemoglobin 9.2 g/dL (12.0-16.0); Hypochromia SLIGHT = 6-15 cells (100X) (0-5/hpf); Lymphocytes 10 % (21-51); MDiff Complete? YES; Mean Corpuscular Volume 90.6 fL (78.0-98.0); Mean Platelet Volume 9.1 fL (7.4-10.4); Metamyelocyte 1 % (0-0); Monocytes 12 % (0-10); Neutrophil 74 % (42-75); Platelet Count 407 thou/uL (130-400); Platelet Morphology Comment Appears Adequate; Red Blood Cell (RBC) Count 3.16 mill/uL (4.20-5.40); White Blood Cell (WBC) Count 20.1 thou/uL (4.8-10.8)
[2019-10-10 06:16] LABS: Phosphorus 3.3 mg/dL (2.3-4.7)
[2019-10-10] MEDS ORDERED: PHOS-NAK 1 PKT PACK PO SCH (07:30)
[2019-10-10] MEDS: Folic Acid 1 MG TAB PO SCH (08:33)
[2019-10-10] MEDS: Spironolactone 25 MG TAB PO SCH ×2 (08:34→16:36)
[2019-10-10] MEDS: Oxazepam 10 MG CAP PO SCH ×2 (08:34→20:36)
[2019-10-10] MEDS: Aspirin 325 mg Enteric Coated Tablet PO SCH (08:34)
[2019-10-10] MEDS: Amiodarone 200 MG TAB PO SCH ×2 (08:34→20:36)
[2019-10-10] MEDS: Ferrous Sulfate 325 MG TAB PO SCH (08:34)
[2019-10-10] MEDS: Metoclopramide HCl 10 MG/2 ML VIAL IVP SCH ×2 (08:34→16:35)
[2019-10-10] MEDS: Thiamine 100 MG TAB PO SCH (08:34)
[2019-10-10] MEDS: Pantoprazole 40 MG VIAL IVP SCH (08:35)
[2019-10-10] MEDS: Enoxaparin Sodium 30 MG/0.3 ML SYRINGE SC SCH ×2 (08:35→20:36)
[2019-10-10 09:51] LABS: Bacteria/HPF None Seen HPF (None Seen); Bilirubin Negative (Negative); Blood, Urine Trace (Negative); Clarity Clear (Clear); Glucose, Urine (Dipstick) Normal (Negative); Leukocyte Negative Leu/uL (Negative); Nitrite Negative (Negative); Protein, Urine (Dipstick) 30 mg/dL (Neg-Trace); RBC/HPF 0-3 HPF (0-3); Squamous Epithelial 0-3 HPF (0-3); Urobilinogen Normal mg/dL (Less than 2)
--- NOTE | 2019-10-10 13:22 | PRG ---
DATE OF SERVICE: 10/10/2019 SUBJECTIVE: Ms. Infante is a 74-year-old woman, who is postoperative day #6, status post exploratory laparotomy with right hemicolectomy and primary anastomosis. 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 This is staged at pT1 pN0. The patient is awake and alert this morning. She is tolerating clear liquid diet, having bowel movement. The pain is adequately controlled on oral analgesics. Her urinary output has been adequate for the patient's age and weight. OBJECTIVE: VITAL SIGNS: Her vital signs this morning include blood pressure 120/71, pulse 72, respiratory rate is 16, maximum temperature in the last 24 hours is 99.2 degrees Fahrenheit, current oxygen saturation is 98% on 3 L by nasal cannula oxygen. HEENT: Pupils equal, round, and reactive to light and accommodation. NECK: She has no jugular venous distention noted. HEART: Reveals regular rate and rhythm. No murmurs or gallops auscultated. LUNGS: Clear to auscultation bilaterally. Breathing, regular and nonlabored. ABDOMEN: Soft and nondistended. SKIN: Incision is intact, clean, dry. NEUROLOGIC: Reveals no focal deficits present. LABORATORY FINDINGS: Today includes a CBC with 20,100 white blood cells, hemoglobin and hematocrit 9.2 and 28.6 respectively. Platelet count is 407,000. Metabolic profile; sodium 135, potassium 3.8, chloride is 97, bicarb is 28, BUN 23, creatinine 0.90, glucose 108, magnesium 2.2, and phosphorus 3.3. IMPRESSION: 1. Postop day #6, status post exploratory laparotomy with right hemicolectomy and primary anastomosis. 2. 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 3. Resolved acute congestive heart failure exacerbation. PLAN: 1. Advance diet and activity. 2. Anticipate discharge to home within the next 1 to 2 days if the patient is tolerating diet and able to perform normal activity. Above findings and plan discussed with the patient and her at bedside. 3. They both indicated understanding of information given. 4. I have answered their questions. Job ID: [id number]
--- NOTE | 2019-10-10 16:46 | PDOC.HOSPP ---
- Subjective Encounter Date: 10/10/19 Encounter Time: 16:48 Subjective: Pt seen for followup re: acute on chronic respiratory failure. States she feels well, no complaints. - Objective Vital Signs & Weight: Vital Signs (12 hours) Temp Pulse Pulse Resp BP BP BP 10/10/19 15:47 10/10/19 14:55 97.7 F 88 16 128/71 10/10/19 13:54 10/10/19 13:03 73 16 10/10/19 11:16 98 F 70 18 116/62 10/10/19 10:40 70 99/65 10/10/19 07:53 78 16 10/10/19 07:06 98 F 72 16 120/71 Pulse Ox Pulse Ox Pulse Ox Pulse Ox Pulse Ox 10/10/19 15:47 93 L 93 L 10/10/19 14:55 92 L 10/10/19 13:54 97 93 L 10/10/19 13:03 92 L 10/10/19 11:16 93 L 10/10/19 10:40 93 L 10/10/19 07:53 98 10/10/19 07:06 95 Weight Admit Weight 139 lb 14.4 oz Weight 137 lb 14.4 oz Most Recent Monitor Data Heart Rate from ECG 68 NIBP 110/58 NIBP BP-Mean 75 Respiration from ECG 23 SpO2 91 I&O: 10/09/19 10/10/19 10/11/19 06:59 06:59 06:59 Intake Total 1600.9 521 Output Total 2185 750 Balance -584.1 -229 Result Diagrams: 10/10/19 05:31 10/10/19 05:31 Additional Labs: Accuchecks 10/10/19 10/10/19 10/10/19 14:59 11:19 05:17 POC Glucose 154 H 126 H 107 10/09/19 20:55 POC Glucose 118 H Labs and MARs reviewed by id Hospitalist ROS - Review of Systems Cardiovascular: denies: chest pain, palpitations, orthopnea, paroxysmal noc. dyspnea, edema, light headedness Gastrointestinal: denies: nausea, vomiting, abdominal pain, diarrhea, constipation, melena, hematochezia - Medication Medications: Active Medications Generic Name Dose Route Start Last Admin Trade Name Freq PRN Reason Stop Dose Admin Acetaminophen 650 mg 10/07/19 18:00 10/10/19 11:54 Tylenol Elixir PO 650 mg Q6HR ELISABETH Administration Albuterol Sulfate 2.5 mg 09/26/19 20:36 09/30/19 02:34 Ventolin NEB 2.5 mg [id number] PRN Administration Wheezing Albuterol/Ipratropium 3 ml 09/27/19 01:00 10/10/19 13:03 Duoneb NEB 3 ml [id number] ELISABETH Administration Amiodarone HCl 400 mg 10/08/19 21:00 10/10/19 08:34 Cordarone PO 400 mg BID ELISABETH Administration Aspirin 325 mg 10/10/19 09:00 10/10/19 08:34 Ecotrin PO 325 mg DAILY ELISABETH Administration Atorvastatin Calcium 80 mg 09/26/19 21:00 10/09/19 20:27 Lipitor PO 80 mg HS ELISABETH Administration Enoxaparin Sodium 30 mg 10/06/19 21:00 10/10/19 08:35 Lovenox SC 30 mg BID ELISABETH Administration Ferrous Sulfate 325 mg 10/02/19 08:00 10/10/19 08:34 Feosol PO 325 mg QAM-WM ELISABETH Administration Folic Acid 1 mg 10/05/19 09:00 10/10/19 08:33 Folvite PO 1 mg DAILY ELISABETH Administration Insulin Human Lispro 0 units 09/26/19 20:36 10/08/19 06:08 Humalog SC 2 unit .MILD SLIDING SCALE PRN Administration Mild Correctional Scale Insulin Human Lispro 0 units 09/26/19 20:36 09/28/19 20:06 Humalog SC 2 unit .BEDTIME SLIDING SC PRN Administration Bedtime Correctional Scale Metoclopramide HCl 5 mg 10/09/19 16:00 10/10/19 16:35 Reglan IVP 5 mg 0000,0800,1600 ELISABETH Administration Ondansetron HCl 4 mg 09/26/19 20:36 10/08/19 21:42 Zofran IVP 4 mg Q6H PRN Administration Nausea/Vomiting Oxazepam 10 mg 10/08/19 21:00 10/10/19 08:34 Serax PO 10 mg BID ELISABETH Administration Pantoprazole Sodium 40 mg 10/09/19 09:00 10/10/19 08:35 Protonix IVP 40 mg DAILY ELISABETH Administration Senna/Docusate Sodium 2 tab 09/26/19 20:36 09/29/19 08:44 Senokot S PO 2 tab BID PRN Administration Constipation Sodium Chloride 10 ml 09/26/19 20:01 10/03/19 20:33 Flush - Normal Saline IVF 10 ml PRN PRN Administration Saline Flush Spironolactone 25 mg 10/08/19 17:00 10/10/19 16:36 Aldactone PO 25 mg BID-WM ELISABETH Administration Thiamine HCl 100 mg 10/05/19 09:00 10/10/19 08:34 Thiamine PO 100 mg DAILY ELISABETH Administration - Exam General Appearance: awake alert Eye: anicteric sclera ENT: moist mucosa Neck: supple Heart: no rubs, irregular Respiratory: CTAB Gastrointestinal: soft, non-tender Gastrointestinal - other findings: ostomy Extremities: no edema Psychiatric: normal affect, normal behavior Hosp A/P - Plan - Assessment (1) Acute on chronic respiratory failure with hypoxia Code(s): J96.21 - ACUTE AND CHRONIC RESPIRATORY FAILURE WITH HYPOXIA Status: Acute (2) NSTEMI (non-ST elevated myocardial infarction) Code(s): I21.4 - NON-ST ELEVATION (NSTEMI) MYOCARDIAL INFARCTION Status: Acute (3) Acute exacerbation of emphysema Code(s): J43.9 - EMPHYSEMA, UNSPECIFIED Status: Acute (4) Hypokalemia Status: Acute (5) Hyperlipidemia Code(s): E78.5 - HYPERLIPIDEMIA, UNSPECIFIED Status: Chronic (6) Acute diastolic congestive heart failure Status: Resolved (7) Hypotension Status: Resolved (8) Iron deficiency Status: Chronic - Plan Pt slowly improving s/p colectomy for cecal malignancy Antiubiotics discontinued. Pt did not want Inpt Rehab or HH Likely home tomorrow Continue aspirin. Continue amiodarone.
[2019-10-10] MEDS: Atorvastatin Calcium 40 MG TAB PO SCH (20:36)
[2019-10-11] MEDS: Acetaminophen 650 MG/20.3 ML UDCUP PO SCH ×4 (01:39→17:32)
[2019-10-11] MEDS: Metoclopramide HCl 10 MG/2 ML VIAL IVP SCH ×2 (01:40→07:49)
[2019-10-11 05:05] LABS: Phosphorus 3.2 mg/dL (2.3-4.7)
[2019-10-11 05:06] LABS: Anion Gap 12 mmol/L (10-20); BUN (Urea Nitrogen) 19 mg/dL (9.8-20.1); Calc. Creatinine Clearance 60 mL/min (70-130); Calcium 9.4 mg/dL (7.8-10.44); Carbon Dioxide 30 mmol/L (23-31); Chloride 95 mmol/L (98-107); Estimated GFR-MDRD 67; Glucose 130 mg/dL (83-110); Magnesium 1.9 mg/dL (1.6-2.6); Potassium 3.3 mmol/L (3.5-5.1); Sodium 134 mmol/L (136-145)
[2019-10-11 05:16] LABS: Eosinophils 2 % (0-10); Hemoglobin 9.3 g/dL (12.0-16.0); Lymphocytes 19 % (21-51); MDiff Complete? YES; Mean Corpuscular HGB CONC 31.2 g/dL (32.0-36.0); Mean Corpuscular Hemoglobin 27.9 pg (27.0-31.0); Mean Corpuscular Volume 89.4 fL (78.0-98.0); Mean Platelet Volume 8.9 fL (7.4-10.4); Monocytes 15 % (0-10); Neutrophil 63 % (42-75); Platelet Count 417 thou/uL (130-400); Platelet Morphology Comment Appears Increased; Red Blood Cell (RBC) Count 3.32 mill/uL (4.20-5.40); White Blood Cell (WBC) Count 19.4 thou/uL (4.8-10.8)
[2019-10-11] MEDS: Spironolactone 25 MG TAB PO SCH ×2 (07:50→16:50)
[2019-10-11] MEDS: Pantoprazole 40 MG VIAL IVP SCH (07:50)
[2019-10-11] MEDS: Enoxaparin Sodium 30 MG/0.3 ML SYRINGE SC SCH ×2 (07:50→20:09)
[2019-10-11] MEDS: Ferrous Sulfate 325 MG TAB PO SCH (07:50)
[2019-10-11] MEDS: Oxazepam 10 MG CAP PO SCH ×2 (07:50→20:07)
[2019-10-11] MEDS: Aspirin 325 mg Enteric Coated Tablet PO SCH (07:50)
[2019-10-11] MEDS: Thiamine 100 MG TAB PO SCH (07:51)
[2019-10-11] MEDS: Folic Acid 1 MG TAB PO SCH (07:51)
[2019-10-11] MEDS: Amiodarone 200 MG TAB PO SCH ×2 (07:51→20:07)
--- NOTE | 2019-10-11 10:25 | RAD ---
1 VIEW ABDOMEN: Date: 10/11/2019 HISTORY: Ileus. COMPARISON: 10/06/2019. FINDINGS: The Dobbhoff feeding tube has been removed. A small right pleural effusion is seen. Extensive vascular calcifications are seen in the abdominal aorta and iliac arteries. Radiopaque sutu re material overlies the right lower quadrant. The bowel gas pattern is overall nonspecific. No diste nded/dilated loops of gas-filled small bowel are seen on this exam. There is relative paucity of ravi l gas. There is increased density overlying the left upper quadrant. While portions of the calcificat ions could be related to vascular-type calcifications, there was only minimal calcification seen in t he region of the splenic artery on prior CT exam on 10/02/2019. Increased density material may be rel ated to residual contrast within the gastric lumen. Degenerative changes are seen in the spine. Phlebolith overlies the right hemipelvis. IMPRESSION: 1. Postoperative changes right lower quadrant with overall nonspecific bowel gas pattern. 2. Increased density material overlying left upper quadrant which could be related to residual contr ast within the gastric lumen. 3. Small right pleural effusion. POS: [facility]
[2019-10-11] MEDS ORDERED: Amoxicillin/Potassium Clav 875 MG TAB PO SCH (10:30)
[2019-10-11 11:35] LABS: Hemoglobin A1c 5.9 % (4.0-6.0)
--- NOTE | 2019-10-11 11:57 | PRG ---
DATE OF SERVICE: 10/11/2019 SUBJECTIVE: The patient remains on the surgical floor. She is postop day 6 status post exploratory laparotomy with right hemicolectomy and primary anastomosis. The patient is doing well. She has continued to work with Physical and Occupational Therapy. She is tolerating a diet, which has been recently advanced to regular. She has had bowel movement. She denies vomiting and only has occasional nausea. OBJECTIVE: VITAL SIGNS: Temperature 98.4, heart rate 80, blood pressure 112/56, respirations 16, and oxygen saturation 97% on room air. GENERAL: The patient is resting comfortably in bed. She is awake, alert, conversant, and appropriate. LUNGS: Clear to auscultation bilaterally with good inspiratory and expiratory effort. HEART: Regular rate and rhythm. ABDOMEN: Soft and nondistended with active bowel sounds. The patient's wound is clean, dry, and intact. EXTREMITIES: Neurovascularly intact x4. LABORATORY FINDINGS: White blood cell count 19.4, hemoglobin 9.3, hematocrit 29.6, platelets 417, bands are 19. Sodium 134, potassium 3.3, chloride 95, CO2 of 30, BUN 19, creatinine 0.83, glucose 130, magnesium 1.9, and phosphorus 3.2. RADIOGRAPHIC FINDINGS: KUB shows postoperative changes in the right lower quadrant. No other acute findings are noted. ASSESSMENT: 1. Status post exploratory laparotomy with right hemicolectomy and primary anastomosis, postoperative day 7. 2. Stage I T1N0 invasive adenocarcinoma of the cecum. 3. Resolved acute congestive heart failure exacerbation. PLAN: Plan will be to continue supportive care. Encourage out of bed. We will start Augmentin 875 p.o. b.i.d. for the patient in light of her persistent white blood cell count and bandemia. The patient will likely be able to be discharged within the next 24 to 48 hours. Job ID: [id number]
--- NOTE | 2019-10-11 14:07 | PDOC.HOSPP ---
- Subjective Encounter Date: 10/11/19 Encounter Time: 07:40 Subjective: Pt seen for followup re: NSTEMI. Feels better today, tolerating diet. - Objective Vital Signs & Weight: Vital Signs (12 hours) Temp Pulse Resp BP BP Pulse Ox 10/11/19 11:05 98.4 F 80 16 112/56 L 97 10/11/19 09:16 95 10/11/19 07:17 91 L 10/11/19 07:14 76 16 10/11/19 07:13 97.5 F L 80 14 143/74 H 95 10/11/19 03:11 97.5 F L 90 16 116/57 L 97 Weight Admit Weight 139 lb 14.4 oz Weight 137 lb 5.568 oz Most Recent Monitor Data Heart Rate from ECG 68 NIBP 110/58 NIBP BP-Mean 75 Respiration from ECG 23 SpO2 91 I&O: 10/10/19 10/11/19 10/12/19 06:59 06:59 06:59 Intake Total 521 1810 Output Total 750 Balance -229 1810 Result Diagrams: 10/11/19 04:30 10/11/19 04:30 Additional Labs: Accuchecks 10/11/19 10/11/19 10/10/19 10:41 05:34 20:16 POC Glucose 159 H 151 H 149 H 10/10/19 14:59 POC Glucose 154 H Labs and MARs reviewed by in Hospitalist ROS - Review of Systems Cardiovascular: denies: chest pain, palpitations, orthopnea, paroxysmal noc. dyspnea, edema, light headedness Gastrointestinal: denies: nausea, vomiting, abdominal pain, diarrhea, constipation, melena, hematochezia - Medication Medications: Active Medications Generic Name Dose Route Start Last Admin Trade Name Freq PRN Reason Stop Dose Admin Acetaminophen 650 mg 10/07/19 18:00 10/11/19 11:00 Tylenol Elixir PO 650 mg Q6HR ELISABETH Administration Albuterol Sulfate 2.5 mg 09/26/19 20:36 09/30/19 02:34 Ventolin NEB 2.5 mg [id number] PRN Administration Wheezing Albuterol/Ipratropium 3 ml 09/27/19 01:00 10/11/19 12:59 Duoneb NEB 3 ml [id number] ELISABETH Administration Amiodarone HCl 400 mg 10/08/19 21:00 10/11/19 07:51 Cordarone PO 10/11/19 23:59 400 mg BID [facility] Administration Aspirin 325 mg 10/10/19 09:00 10/11/19 07:50 Ecotrin PO 325 mg DAILY ELISABETH Administration Atorvastatin Calcium 80 mg 09/26/19 21:00 10/10/19 20:36 Lipitor PO 80 mg HS ELISABETH Administration Enoxaparin Sodium 30 mg 10/06/19 21:00 10/11/19 07:50 Lovenox SC 30 mg BID [facility] Administration Ferrous Sulfate 325 mg 10/02/19 08:00 10/11/19 07:50 Feosol PO 325 mg QAM-WM [facility] Administration Folic Acid 1 mg 10/05/19 09:00 10/11/19 07:51 Folvite PO 1 mg DAILY [facility] Administration Insulin Human Lispro 0 units 09/26/19 20:36 10/08/19 06:08 Humalog SC 2 unit .MILD SLIDING SCALE PRN Administration Mild Correctional Scale Insulin Human Lispro 0 units 09/26/19 20:36 09/28/19 20:06 Humalog SC 2 unit .BEDTIME SLIDING SC PRN Administration Bedtime Correctional Scale Ondansetron HCl 4 mg 09/26/19 20:36 10/08/19 21:42 Zofran IVP 4 mg Q6H PRN Administration Nausea/Vomiting Oxazepam 10 mg 10/08/19 21:00 10/11/19 07:50 Serax PO 10 mg BID [facility] Administration Pantoprazole Sodium 40 mg 10/09/19 09:00 10/11/19 07:50 Protonix IVP 40 mg DAILY [facility] Administration Senna/Docusate Sodium 2 tab 09/26/19 20:36 09/29/19 08:44 Senokot S PO 2 tab BID PRN Administration Constipation Sodium Chloride 10 ml 09/26/19 20:01 10/03/19 20:33 Flush - Normal Saline IVF 10 ml PRN PRN Administration Saline Flush Spironolactone 25 mg 10/08/19 17:00 10/11/19 07:50 Aldactone PO 25 mg BID-WM ELISABETH Administration Thiamine HCl 100 mg 10/05/19 09:00 10/11/19 07:51 Thiamine PO 100 mg DAILY ELISABETH Administration - Exam General Appearance: awake alert Eye: anicteric sclera ENT: normocephalic atraumatic Neck: supple, no thyromegaly Heart: RRR Respiratory: CTAB Gastrointestinal: soft, non-tender Gastrointestinal - other findings: ostomy Psychiatric: normal affect, normal behavior Hosp A/P - Plan - Assessment (1) NSTEMI (non-ST elevated myocardial infarction) Code(s): I21.4 - NON-ST ELEVATION (NSTEMI) MYOCARDIAL INFARCTION Status: Acute (2) Hypokalemia Status: Acute (3) Iron deficiency Status: Chronic (4) Hyperlipidemia Code(s): E78.5 - HYPERLIPIDEMIA, UNSPECIFIED Status: Chronic (6) Acute diastolic congestive heart failure Status: Resolved (5) Hypotension Status: Resolved (6) Acute exacerbation of emphysema Code(s): J43.9 - EMPHYSEMA, UNSPECIFIED Status: Resolved (7) Acute on chronic respiratory failure with hypoxia Code(s): J96.21 - ACUTE AND CHRONIC RESPIRATORY FAILURE WITH HYPOXIA Status: Resolved - Plan Pt improved s/p colectomy for cecal malignancy Likely home 24-48 h Continue aspirin. Continue amiodarone.
[2019-10-11] MEDS ORDERED: Potassium Chloride 20 MEQ TAB PO SCH (14:15)
[2019-10-11] MEDS: Carvedilol 3.125 MG TAB PO SCH (16:50)
[2019-10-11] MEDS ORDERED: Carvedilol 3.125 MG TAB PO SCH (17:00)
[2019-10-11] MEDS: Amoxicillin/Potassium Clav 875 MG TAB PO SCH (20:06)
[2019-10-11] MEDS: Atorvastatin Calcium 40 MG TAB PO SCH (20:07)
[2019-10-12] MEDS: Acetaminophen 650 MG/20.3 ML UDCUP PO SCH ×2 (00:17→05:33)
[2019-10-12 05:39] VITALS: BMI 22.3
[2019-10-12 05:59] LABS: Anion Gap 17 mmol/L (10-20); BUN (Urea Nitrogen) 18 mg/dL (9.8-20.1); Calc. Creatinine Clearance 57 mL/min (70-130); Calcium 9.2 mg/dL (7.8-10.44); Carbon Dioxide 23 mmol/L (23-31); Chloride 97 mmol/L (98-107); Estimated GFR-MDRD 68; Glucose 141 mg/dL (83-110); Potassium 3.8 mmol/L (3.5-5.1); Sodium 133 mmol/L (136-145)
[2019-10-12 06:12] LABS: #Eosinphils 0.2 thou/uL (0.0-0.7); #Lymphocytes 3.7 thou/uL (1.20-3.40); #Monocytes 2.2 thou/uL (0.11-0.59); #Neutrophils 13.2 thou/uL (1.40-6.50); %Basophils 0.2 % (0.0-1.0); %Eosinophils 1.1 % (0.0-10.0); %Monocytes 11.5 % (0.0-10.0); %Neutrophils 68.1 % (42.0-75.0); Band 1 % (5-11); Hemoglobin 9.8 g/dL (12.0-16.0); Hypochromia SLIGHT = 6-15 cells (100X) (0-5/hpf); Lymphocytes 10 % (21-51); MDiff Complete? YES; Mean Corpuscular HGB CONC 31.5 g/dL (32.0-36.0); Mean Corpuscular Hemoglobin 28.4 pg (27.0-31.0); Mean Platelet Volume 9.2 fL (7.4-10.4); Monocytes 7 % (0-10); Neutrophil 82 % (42-75); Platelet Count 468 thou/uL (130-400); Platelet Morphology Comment Appears Increased; RBC Distribution Width 18.6 % (11.5-14.5); Red Blood Cell (RBC) Count 3.45 mill/uL (4.20-5.40); White Blood Cell (WBC) Count 19.4 thou/uL (4.8-10.8)
[2019-10-12 07:23] VITALS: BP 124/71; TEMP 97.9
[2019-10-12] MEDS ORDERED: Furosemide 40 MG/4 ML VIAL SLOW IVP SCH (08:00)
[2019-10-12] MEDS: Oxazepam 10 MG CAP PO SCH (08:59)
[2019-10-12] MEDS: Aspirin 325 mg Enteric Coated Tablet PO SCH (08:59)
[2019-10-12] MEDS: Amoxicillin/Potassium Clav 875 MG TAB PO SCH (08:59)
[2019-10-12] MEDS: Spironolactone 25 MG TAB PO SCH (08:59)
[2019-10-12] MEDS: Folic Acid 1 MG TAB PO SCH (08:59)
[2019-10-12] MEDS: Thiamine 100 MG TAB PO SCH (09:00)
[2019-10-12] MEDS: Enoxaparin Sodium 30 MG/0.3 ML SYRINGE SC SCH (09:00)
[2019-10-12] MEDS ORDERED: Amiodarone 200 MG TAB PO SCH (09:00)
[2019-10-12] MEDS: Ferrous Sulfate 325 MG TAB PO SCH (09:00)
[2019-10-12] MEDS ORDERED: Saccharomyces boulardii 250 MG CAP PO SCH (09:00)
[2019-10-12] MEDS: Carvedilol 3.125 MG TAB PO SCH (09:11)
--- NOTE | 2019-10-12 09:29 | RAD ---
SINGLE VIEW CHEST: Date: 10/12/2019 COMPARISON: 10/08/2019. HISTORY: CHF. FINDINGS: Single view of the chest shows normal sized cardiomediastinal silhouette. The central venous catheter is unchanged in position. The Dobbhoff tube has been removed. There is no evidence of consolidation, mass, or pleural effusion. IMPRESSION: No evidence of acute cardiopulmonary disease. POS: [facility]
--- NOTE | 2019-10-12 10:43 | PRG ---
DATE OF SERVICE: 10/12/2019 SUBJECTIVE: The patient was seen this morning, lying in bed with no signs of acute distress. She reported pain is well controlled. She slept well overnight. She is on 2 L nasal cannula. The patient having bowel movements and ambulating without difficulties. Denies cough or shortness of breath. OBJECTIVE: VITAL SIGNS: Temperature 97.9, pulse 76, respirations 16, oxygen saturation 97% on 2 L nasal cannula, and blood pressure 124/71. GENERAL: Well-appearing elderly female, lying in bed with no signs of acute distress. PULMONARY: Equal chest rise and fall. Clear breath sounds bilaterally. No signs of acute respiratory distress. CARDIAC: Regular rate and rhythm. GASTROINTESTINAL: Abdomen is soft, nontender, and nondistended. Midline wound is clean, dry, and intact with no signs of infection. NEUROLOGIC: GCS is 15. LABORATORY FINDING: White count 19.9, hemoglobin 9.8, hematocrit 31.0, and platelets 9.2. Sodium 133, potassium 3.8, chloride 97, bicarb 23, BUN 18, creatinine 0.82, and glucose 141. DIAGNOSTIC FINDINGS: There are no new diagnostic findings to discuss. ASSESSMENT: 1. Postoperative day 8, status post exploratory laparotomy with right hemicolectomy and primary anastomosis. 2. Adenocarcinoma of the cecum. 3. Congestive heart failure exacerbation, resolved. 4. Leukocytosis, etiology unknown. PLAN: Continue current diet and pain regimen. Continue physical and occupational therapy. Continue ambulating as much as possible. Continue Augmentin. Chest x -ray completed this morning is concerning for infection or congestive heart failure exacerbation. We will send a C difficile to further evaluate leukocytosis. However, the patient's leukocytosis does not correlate with her physical exam. We are not concerned for intraabdominal etiology at this time. The patient is to follow up in [facility]uma [facility] with Dr. Montiel on October 26, 2019, at 10:30 a.m. The patient to complete CBC before followup. She can call to set up lab studies and confirm appointment. Per Dr. Montiel, the patient is okay to be discharged at the discretion of the hospitalist team. This patient was seen and evaluated by Dr. Montiel and myself this morning during rounds. Job ID: [id number] [facility]
[2019-10-12] MEDS ORDERED: Carvedilol 3.125 MG TAB PO SCH (17:00)
[2019-10-13] MEDS ORDERED: Furosemide 20 MG TAB PO SCH (09:00)
[2019-10-26] MEDS ORDERED: Amiodarone 200 MG TAB PO SCH (09:00)
== END 2019-10-12 11:20 | disposition home or self-care (01) | DRG 264 ==
LOC: ERS 14:16 → IMCU/EMU 17:01 → 2SE 10-03 16:00 → CCU 10-04 15:24 → SJJU 10-05 12:56 → CCU 10-06 08:41 → IMCU/EMU 10-08 12:20 → SURG A 10-09 15:24
PROVIDERS: ADMIT Emergency Medicine; ATTEND Emergency Medicine
PROC: 0DBN8ZZ Excision of Sigmoid Colon, Via Natural or Artificial Opening Endoscopic (ICD-10-PCS; 2019-10-02)
PROC: 0DBH8ZX Excision of Cecum, Via Natural or Artificial Opening Endoscopic, Diagnostic (ICD-10-PCS; 2019-10-02)
PROC: 0DJ08ZZ Inspection of Upper Intestinal Tract, Via Natural or Artificial Opening Endoscopic (ICD-10-PCS; 2019-10-02)
PROC: 4A023N7 Measurement of Cardiac Sampling and Pressure, Left Heart, Percutaneous Approach (ICD-10-PCS; 2019-10-03)
PROC: B2111ZZ Fluoroscopy of Multiple Coronary Arteries using Low Osmolar Contrast (ICD-10-PCS; 2019-10-03)
PROC: B2151ZZ Fluoroscopy of Left Heart using Low Osmolar Contrast (ICD-10-PCS; 2019-10-03)
PROC: 5A09457 Assistance with Respiratory Ventilation, 24-96 Consecutive Hours, Continuous Positive Airway Pressure (ICD-10-PCS; 2019-10-03)
PROC: 0DTF0ZZ Resection of Right Large Intestine, Open Approach (ICD-10-PCS; principal; 2019-10-04)
PROC: 0D1B0ZH Bypass Ileum to Cecum, Open Approach (ICD-10-PCS; 2019-10-04)
PROC: 0DHA7UZ Insertion of Feeding Device into Jejunum, Via Natural or Artificial Opening (ICD-10-PCS; 2019-10-04)
PROC: 30233N1 Transfusion of Nonautologous Red Blood Cells into Peripheral Vein, Percutaneous Approach (ICD-10-PCS; 2019-10-04)
DX: I21.4 Non-ST elevation (NSTEMI) myocardial infarction (principal); J96.21 Acute and chronic respiratory failure with hypoxia; I50.33 Acute on chronic diastolic (congestive) heart failure; C18.0 Malignant neoplasm of cecum; E78.5 Hyperlipidemia, unspecified; E78.00 Pure hypercholesterolemia, unspecified; F17.210 Nicotine dependence, cigarettes, uncomplicated; J43.9 Emphysema, unspecified; E11.9 Type 2 diabetes mellitus without complications; I34.0 Nonrheumatic mitral (valve) insufficiency; K63.5 Polyp of colon; D50.9 Iron deficiency anemia, unspecified; I95.9 Hypotension, unspecified; D72.829 Elevated white blood cell count, unspecified; Z79.82 Long term (current) use of aspirin; Z79.899 Other long term (current) drug therapy; Z86.73 Personal history of transient ischemic attack (TIA), and cerebral infarction without residual deficits; Z98.51 Tubal ligation status
CPT/HCPCS: 36415; 36416; 36430; 71045; 71275; 74018; 74177; 80048; 80053; 80061; 80202; 81003; 81015; 82533; 82553; 82565; 82607; 82728; 82746; 82805; 83036; 83540; 83550; 83615; 83735; 83880; 84100; 84484; 85007; 85014; 85018; 85025; 85027; 85046; 85049; 85060; 85347; 85379; 85610; 85730; 86850; 86900; 86901; 87040; 87149; 88304; 88305; 88309; 88331; 88332; 93005; 93010; 93306; 93458; 93798; 93970; 94640; 94660; 96372; 96374; 99152; 99153; C1769; C9113; J0282; J0690; J0694; J0702; J1100; J1200; J1644; J1650; J1720; J1885; J1940; J2001; J2250; J2370; J2405; J2543; J2704; J2765; J2916; J2920; J3010; J3370; J3475; J3480; J3490; J7050; J7070; J7512; J7611; J7620; P9016; P9045; P9047; Q9967; S0020

== ENCOUNTER 2022-04-12 16:31 | Inpatient (IN) | payer MEDICARE ==
[~2022-04-12 16:31] MED LIST changes: -Dexamethasone 20 MG/5 ML VIAL ONE; +Iopamidol-370 76% 500 ML 1 ML ONE; -Ketorolac Tromethamine 30 MG/ML VIAL ONE; -Lidocaine 1% PF 5 ML VIAL ONE; -Ondansetron PF 4 MG/2 ML Vial ONE; -PHENYLEPHRINE-NS 100 MCG/ML 10 ML SYRINGE ONE; -PROPOFOL 200 MG/20 ML VIAL ONE
[2022-04-12 18:23] VITALS: BMI 20.1
[2022-04-12] MEDS ORDERED: Acetaminophen 325 MG TAB PO PRN (19:16)
[2022-04-12] MEDS: Thiamine HCl 200 MG/2 ML VIAL SLOW IVP SCH (21:24)
[2022-04-12] MEDS: Nicotine 21 MG PATCH TD SCH (21:24)
[2022-04-13 04:31] LABS: #Basophils 0.1 thou/uL (0.0-0.2); #Eosinphils 0.4 thou/uL (0.0-0.7); #Lymphocytes 2.6 thou/uL (1.20-3.40); #Neutrophils 5.3 thou/uL (1.40-6.50); %Basophils 0.8 % (0.0-1.0); %Lymphocytes 27.3 % (21.0-51.0); %Monocytes 11.1 % (0.0-10.0); %Neutrophils 56.9 % (42.0-75.0); Hemoglobin 7.8 g/dL (12.0-16.0); Mean Corpuscular HGB CONC 31.1 g/dL (32.0-36.0); Mean Corpuscular Hemoglobin 28.5 pg (27.0-31.0); Mean Corpuscular Volume 91.7 fL (78.0-98.0); Mean Platelet Volume 7.8 fL (7.4-10.4); Platelet Count 315 thou/uL (130-400); RBC Distribution Width 15.8 % (11.5-14.5); Red Blood Cell (RBC) Count 2.75 mill/uL (4.20-5.40); White Blood Cell (WBC) Count 9.4 thou/uL (4.8-10.8)
[2022-04-13 04:49] LABS: Hemoglobin A1c 5.5 % (4.0-6.0)
[2022-04-13 04:55] LABS: Iron 16 ug/dL (50-170); Iron Binding Capacity, Total 419 mcg/dL (265-497)
[2022-04-13 04:56] LABS: Anion Gap 11 mmol/L (10-20); BUN (Urea Nitrogen) 15 mg/dL (9.8-20.1); Calc. Creatinine Clearance 50 mL/min (70-130); Calcium 9.1 mg/dL (7.8-10.44); Carbon Dioxide 25 mmol/L (23-31); Cardiac Risk 2.2 (Less than 4.5); Chloride 108 mmol/L (98-107); Cholesterol 132 mg/dl (< 200 Desired); Estimated GFR 78; Glucose 97 mg/dL (83-110); HDL Cholesterol 61 mg/dL (>60 Neg Risk); Iron 16 ug/dL (50-170); Iron Binding Capacity, Total 428 mcg/dL (265-497); LDL Cholesterol, Calculated 54 mg/dL; Magnesium 1.7 mg/dL (1.6-2.6); Phosphorus 3.5 mg/dL (2.3-4.7); Potassium 4.1 mmol/L (3.5-5.1); Sodium 140 mmol/L (136-145); Transferrin, Serum 342 mg/dL (173-360); Triglycerides 84 mg/dL (Less than 150)
[2022-04-13 05:19] LABS: Ferritin 19.13 ng/mL (10-291); Thyroid Stimulating Hormone 2.4626 uIU/mL (0.35-4.94)
[2022-04-13 05:47] LABS: Reflex for Review?? YES
[2022-04-13 08:24] LABS: Hemoglobin 8.3 g/dL (12.0-16.0)
[2022-04-13] MEDS ORDERED: Enoxaparin Sodium 40 MG/0.4 ML SYRINGE SC SCH (09:00)
[2022-04-13] MEDS: Atorvastatin Calcium 40 MG TAB PO SCH (09:50)
[2022-04-13] MEDS: Aspirin 81 mg Enteric Coated Tablet PO SCH (09:51)
[2022-04-13] MEDS: Ezetimibe 10 MG TAB PO SCH (09:51)
[2022-04-13] MEDS: Folic Acid 1 MG TAB PO SCH (09:51)
[2022-04-13] MEDS: Amiodarone 200 MG TAB PO SCH (09:51)
[2022-04-13] MEDS: Multivit, Therapeutic 1 TAB PO SCH (09:51)
[2022-04-13] MEDS ORDERED: Polyethylene Glycol 3350 17 GM Packet PO PRN (20:08)
[2022-04-13] MEDS: Nicotine 21 MG PATCH TD SCH (20:23)
[2022-04-13] MEDS: Thiamine HCl 200 MG/2 ML VIAL SLOW IVP SCH (20:23)
[2022-04-13] MEDS ORDERED: Melatonin 3 MG TAB PO PRN (22:19)
[2022-04-14 09:04] LABS: #Basophils 0.1 thou/uL (0.0-0.2); #Eosinphils 0.2 thou/uL (0.0-0.7); #Lymphocytes 1.8 thou/uL (1.20-3.40); #Monocytes 1.1 thou/uL (0.11-0.59); #Neutrophils 7.4 thou/uL (1.40-6.50); %Basophils 0.6 % (0.0-1.0); %Eosinophils 1.5 % (0.0-10.0); %Lymphocytes 17.2 % (21.0-51.0); %Monocytes 10.2 % (0.0-10.0); %Neutrophils 70.6 % (42.0-75.0); Hemoglobin 7.8 g/dL (12.0-16.0); Mean Corpuscular HGB CONC 31.1 g/dL (32.0-36.0); Mean Corpuscular Hemoglobin 28.3 pg (27.0-31.0); Mean Corpuscular Volume 90.8 fL (78.0-98.0); Mean Platelet Volume 7.9 fL (7.4-10.4); Platelet Count 321 thou/uL (130-400); RBC Distribution Width 15.9 % (11.5-14.5); Red Blood Cell (RBC) Count 2.75 mill/uL (4.20-5.40); White Blood Cell (WBC) Count 10.4 thou/uL (4.8-10.8)
[2022-04-14 09:26] LABS: Anion Gap 12 mmol/L (10-20); BUN (Urea Nitrogen) 15 mg/dL (9.8-20.1); Calc. Creatinine Clearance 56 mL/min (70-130); Calcium 8.8 mg/dL (7.8-10.44); Carbon Dioxide 22 mmol/L (23-31); Chloride 104 mmol/L (98-107); Estimated GFR 89; Glucose 96 mg/dL (83-110); Potassium 3.7 mmol/L (3.5-5.1); Sodium 134 mmol/L (136-145)
[2022-04-14] MEDS: Ezetimibe 10 MG TAB PO SCH (10:17)
[2022-04-14] MEDS: Amiodarone 200 MG TAB PO SCH (10:17)
[2022-04-14] MEDS: Atorvastatin Calcium 40 MG TAB PO SCH (10:17)
[2022-04-14] MEDS: Folic Acid 1 MG TAB PO SCH (10:17)
[2022-04-14] MEDS: Multivit, Therapeutic 1 TAB PO SCH (10:17)
[2022-04-14] MEDS: Aspirin 81 mg Enteric Coated Tablet PO SCH (10:17)
[2022-04-14 16:20] VITALS: BP 94/54; TEMP 98.2
[2022-04-15] MEDS ORDERED: Thiamine 100 MG TAB PO SCH (19:15)
== END 2022-04-14 16:16 | disposition home or self-care (01) | DRG 69 ==
LOC: 2NO 17:43 → OBSVTOIN 20:53
PROVIDERS: ADMIT Emergency Medicine; ATTEND Emergency Medicine
DX: G45.9 Transient cerebral ischemic attack, unspecified (principal); Z66 Do not resuscitate; Z20.822 Contact with and (suspected) exposure to COVID-19; I48.0 Paroxysmal atrial fibrillation; E78.5 Hyperlipidemia, unspecified; F10.10 Alcohol abuse, uncomplicated; D64.9 Anemia, unspecified; E83.42 Hypomagnesemia; Z79.82 Long term (current) use of aspirin; Z79.899 Other long term (current) drug therapy; Z90.09 Acquired absence of other part of head and neck; I69.328 Other speech and language deficits following cerebral infarction; I25.2 Old myocardial infarction
CPT/HCPCS: 36415; 70496; 70498; 70551; 80048; 80061; 82607; 82728; 83036; 83540; 83550; 83735; 84100; 84443; 84466; 85025; 85060; 86850; 86900; 86901; 93306; G0378; J3411; Q9967; U0003; U0005

== ENCOUNTER 2023-11-18 23:28 | Inpatient (IN) | payer MEDICARE ==
[~2023-11-18 23:28] MED LIST changes: -Iopamidol-370 76% 500 ML 1 ML ONE; +Iopamidol-370 76% 500 ML MDV (1 ML CHARGE) ONE
[2023-11-18] MEDS ORDERED: Naloxone HCl 2 mg/2 ml Syringe ONE (23:50)
[2023-11-18 23:58] LABS: Hematocrit 46.2 % (36.0-47.0); Hemoglobin 15.5 g/dL (12.0-16.0); Mean Corpuscular HGB CONC 33.5 g/dL (32.0-36.0); Mean Corpuscular Hemoglobin 34.5 pg (27.0-31.0); Mean Corpuscular Volume 102.9 fL (78.0-98.0); Mean Platelet Volume 10.9 fL (7.4-10.4); Platelet Count 248 10x3/uL (130-400); Red Blood Cell (RBC) Count 4.49 mill/uL (4.20-5.40)
[2023-11-19 00:03] LABS: Globulin 3.2 g/dL (2.4-3.5)
[2023-11-19 00:05] LABS: PTT 29.9 sec (22.9-36.1); Prothrombin Time 12.7 sec (12.0-14.7)
[2023-11-19 00:08] LABS: ALT (SGPT) 14 U/L (8-55); AST (SGOT) 34 U/L (5-34); Albumin 3.8 g/dL (3.4-4.8); Alkaline Phosphatase 106 U/L (40-110); Anion Gap 19 mmol/L (10-20); BUN (Urea Nitrogen) 24 mg/dL (9.8-20.1); Bilirubin, Total 0.8 mg/dL (0.2-1.2); CK (CPK) 31 U/L (29-168); Calc. Creatinine Clearance 0 mL/min (70-130); Calcium 9.7 mg/dL (7.8-10.44); Carbon Dioxide 16 mmol/L (23-31); Chloride 106 mmol/L (98-107); Estimated GFR 52; Glucose 173 mg/dL (83-110); Potassium 4.2 mmol/L (3.5-5.1); Sodium 137 mmol/L (136-145)
[2023-11-19 00:13] LABS: #Basophils 0.21 10x3/uL (0.0-0.2); %Basophils 1.4 % (0.0-1.0); %Eosinophils 1.7 % (0.0-10.0); %Lymphocytes 42.1 % (21.0-51.0); %Monocytes 10.5 % (0.0-10.0); Troponin I 0.013 ng/mL (< 0.028)
[2023-11-19] MEDS ORDERED: NOREPINEPHRINE 8 MG/250 ML-D5W 250 ML ONE (00:17)
[2023-11-19 02:09] LABS: Bilirubin Negative (Negative); Blood, Urine 1+ (Negative); CAUTI Indications for Culture Alt mental st,lethar; Clarity Clear (Clear); Glucose, Urine (Dipstick) 100 mg/dL (Negative); Ketone, Urine Negative (Negative); Leukocyte Negative Leu/uL (Negative); Nitrite Negative (Negative); Protein, Urine (Dipstick) Negative (Neg-Trace); RBC/HPF 0-3 HPF (0-3); Squamous Epithelial 0-3 HPF (0-3); Urobilinogen Normal mg/dL (Less than 2); WBC/HPF 0-3 HPF (0-3); pH, Urine 6.5 (5.0-9.0)
[2023-11-19 02:10] LABS: Bacteria/HPF 1+ HPF (None Seen)
[2023-11-19 02:11] LABS: Urine Culture Reflex No No
[2023-11-19 02:14] LABS: Amphetamine Not Detected (NotDetected); Barbiturates Screen Not Detected (NotDetected); Benzodiazepine Screen Not Detected (NotDetected); Cocaine Metabolite Screen Not Detected (NotDetected); Methadone Not Detected (NotDetected); Methamphetamine Not Detected (NotDetected); Opiate Screen Not Detected (NotDetected); Oxycodone Screen Not Detected (NotDetected); Phencyclidine (PCP) Not Detected (NotDetected); THC/Cannabinoid Screen Not Detected (NotDetected); Tricyclic Screen Not Detected (NotDetected)
[2023-11-19 02:16] LABS: Acetaminophen Less than 10 mcg/mL (10.0-30.0); Alcohol Less than 10.0 mg/dL (Less than 10); Lipase 12 U/L (8-78); Magnesium 1.5 mg/dL (1.6-2.6); Salicylate Less than 8.0 mg/dL (15.0-30.0)
[2023-11-19] MEDS ORDERED: Sodium Chloride 0.9% 100 ML ONE (02:23)
[2023-11-19] MEDS ORDERED: Vancomycin 1 GM/200 ML (FROZEN) BAG ONE (02:23)
[2023-11-19] MEDS ORDERED: Cefepime 2 GM VIAL ONE (02:23)
[2023-11-19] MEDS ORDERED: Ketamine In 0.9 % NaCl 50 MG/5 ML SYRINGE ONE (03:13)
[2023-11-19] MEDS ORDERED: Acetaminophen 650 MG Suppository PR PRN (03:43)
[2023-11-19] MEDS ORDERED: Ondansetron PF 4 MG/2 ML Vial IVP PRN (03:43)
[2023-11-19] MEDS ORDERED: Acetaminophen 325 MG TAB PO PRN (03:43)
[2023-11-19] MEDS ORDERED: Ondansetron ODT 4 MG TAB PO PRN (03:43)
[2023-11-19] MEDS ORDERED: Electrolyte Replacement Protocol 1 EACH FS PRN (03:48)
[2023-11-19] MEDS ORDERED: Albuterol 200 PUFF (6.7GM INHALER) INH PRN (03:49)
[2023-11-19] MEDS ORDERED: Dextrose 5%-Lactated Ringers 1,000 ML IV SCH (04:00)
[2023-11-19] MEDS: Lactated Ringer's 1,000 ML IV SCH (05:14)
[2023-11-19] MEDS: Hydrocortisone Sod Succ/PF 100 mg/2 ml Vial IVP SCH ×2 (05:14→11:57)
[2023-11-19 05:44] VITALS: BMI 19.3
[2023-11-19] MEDS: Magnesium Sulfate In Water 4 GM in Premix 1 BAG IVPB SCH (06:19)
[2023-11-19] MEDS: Famotidine 20 MG TAB PO SCH (08:36)
[2023-11-19] MEDS: NOREPINEPHRINE 8 MG/250 ML-D5W 250 ML IVPB SCH (08:51)
[2023-11-19] MEDS: Famotidine/PF 20 mg/2ml Vial SLOW IVP SCH (08:51)
[2023-11-19] MEDS ORDERED: Vancomycin (BATCH) 1.5 GM in Premix 1 BAG IVPB SCH (09:00)
[2023-11-19 09:53] LABS: Amphetamine Not Detected (NotDetected); Barbiturates Screen Not Detected (NotDetected); Benzodiazepine Screen Not Detected (NotDetected); Cocaine Metabolite Screen Not Detected (NotDetected); Methadone Not Detected (NotDetected); Methamphetamine Not Detected (NotDetected); Opiate Screen Not Detected (NotDetected); Oxycodone Screen Not Detected (NotDetected); Phencyclidine (PCP) Not Detected (NotDetected); THC/Cannabinoid Screen Not Detected (NotDetected); Tricyclic Screen Not Detected (NotDetected)
[2023-11-19] MEDS ORDERED: Iopamidol-370 76% 500 ML MDV (1 ML CHARGE) ONE (10:54)
[2023-11-19] MEDS: Cefepime 1 GM in Sodium Chloride 0.9% 100 ML IVPB SCH (15:17)
[2023-11-19] MEDS: Vancomycin 1 GM in Premix 1 BAG IVPB SCH (15:17)
[2023-11-19] MEDS ORDERED: Dextrose 50% Abboject 50 ML SYRINGE SLOW IVP PRN (17:18)
[2023-11-19] MEDS ORDERED: Glucagon 1 MG/ML KIT IM PRN (17:18)
[2023-11-19] MEDS ORDERED: HumaLOG 300 UNITS/3 ML VIAL SC PRN (17:18)
[2023-11-19] MEDS ORDERED: Dextrose 5% in Water 1,000 ML IV PRN (17:18)
[2023-11-19] MEDS: HumaLOG 300 UNITS/3 ML VIAL SC PRN (17:35)
[2023-11-19] MEDS: Arformoterol 15 MCG/2 ML NEB NEB SCH (18:52)
[2023-11-19] MEDS: Budesonide 0.5 MG/2 ML NEB INH SCH (18:54)
[2023-11-19] MEDS: Atorvastatin Calcium 40 MG TAB PO SCH (20:16)
[2023-11-19] MEDS: Nicotine 14 MG PATCH TD SCH (20:16)
[2023-11-20 06:01] LABS: #Basophils 0.04 10x3/uL (0.0-0.2); #Eosinphils Less than 0.03 10x3/uL (0.0-0.7); %Basophils 0.3 % (0.0-1.0); %Lymphocytes 10.7 % (21.0-51.0); %Monocytes 8.3 % (0.0-10.0); %Neutrophils 80.1 % (42.0-75.0); Hematocrit 38.1 % (36.0-47.0); Hemoglobin 12.6 g/dL (12.0-16.0); Mean Corpuscular HGB CONC 33.1 g/dL (32.0-36.0); Mean Corpuscular Hemoglobin 34.1 pg (27.0-31.0); Mean Corpuscular Volume 103.3 fL (78.0-98.0); Mean Platelet Volume 11.4 fL (7.4-10.4); Platelet Count 152 10x3/uL (130-400); RBC Distribution Width 13.2 % (11.5-14.5); Red Blood Cell (RBC) Count 3.69 mill/uL (4.20-5.40)
[2023-11-20 06:27] LABS: Vancomycin, Random 15.8 ug/mL (See Comment)
[2023-11-20 06:30] LABS: BUN (Urea Nitrogen) 11 mg/dL (9.8-20.1); Calc. Creatinine Clearance 52 mL/min (70-130); Calcium 8.4 mg/dL (7.8-10.44); Estimated GFR 82; Glucose 120 mg/dL (83-110); Magnesium 2.2 mg/dL (1.6-2.6); Sodium 141 mmol/L (136-145)
[2023-11-20 06:31] LABS: Anion Gap 15 mmol/L (10-20); Carbon Dioxide 20 mmol/L (23-31); Cardiac Risk 2.6 (Less than 4.5); Chloride 110 mmol/L (98-107); Cholesterol 150 mg/dl (< 200 Desired); HDL Cholesterol 58 mg/dL (>60 Neg Risk); LDL Cholesterol, Calculated 82 mg/dL; Potassium 3.8 mmol/L (3.5-5.1); Triglycerides 48 mg/dL (Less than 150)
[2023-11-20] MEDS: Lorazepam 0.5 MG TAB PO SCH (10:08)
[2023-11-20] MEDS: Vancomycin (BATCH) 1.25 GM in Premix 1 BAG IVPB SCH (16:33)
[2023-11-20 19:13] LABS: Base Excess (BEa) -3.2 mEq/L (-2.0 to +3.0); Calcium, Ionized (arterial) 1.24 mmol/L (1.12-1.30); Hematocrit-ABG 44 % (36.0-47.0); Hemoglobin (Hb) 14.8 g/dL (12.0-16.0); pH, Arterial 7.219 (7.35-7.45)
[2023-11-20] MEDS ORDERED: dilTIAZem 125 MG, Admixture Fee 1 EACH in Sodium Chloride 0.9% 100 ML IVPB SCH (19:15)
[2023-11-20 19:25] LABS: CO2 Tension 65.2 mmHg (35.0-45.0); O2 Tension (PaO2), arterial 52.1 mmHg (> 70.0); Puncture Site LRA
[2023-11-20] MEDS: Furosemide 40 MG (4 mL) VIAL ONE (19:45)
[2023-11-20] MEDS: Furosemide 40 MG (4 mL) VIAL SLOW IVP SCH (20:36)
[2023-11-20] MEDS: Morphine 4 MG/ML VIAL ONE (20:39)
[2023-11-20 20:45] LABS: Actual Bicarbonate (HCO3a) 24.2 mEq/L (22-28); Base Excess (BEa) -2.1 mEq/L (-2.0 to +3.0); CO2 Tension 47.1 mmHg (35.0-45.0); Calcium, Ionized (arterial) 1.19 mmol/L (1.12-1.30); Carboxyhemoglobin (COHb) 0.8 gm% (0.0-3.0); Hematocrit-ABG 46 % (36.0-47.0); Hemoglobin (Hb) 15.8 g/dL (12.0-16.0); pH, Arterial 7.329 (7.35-7.45)
[2023-11-20 20:46] LABS: O2 Tension (PaO2), arterial 51.7 mmHg (> 70.0); Puncture Site LBA
[2023-11-20 20:47] LABS: ALV-art Gradient 602.425 mmHg (0-20)
[2023-11-20] MEDS: Metoprolol Tartrate 5 MG (5 mL) VIAL IVP SCH (20:49)
[2023-11-20] MEDS: Hydrocortisone Sod Succ/PF 100 mg/2 ml Vial IVP SCH (21:16)
[2023-11-20] MEDS: hydrALAZINE 20 MG/ML VIAL SLOW IVP PRN (22:17)
[2023-11-20] MEDS ORDERED: hydrALAZINE 20 MG/ML VIAL SLOW IVP PRN ×2 (22:50→23:42)
[2023-11-20] MEDS ORDERED: Labetalol HCl 100 MG/20 ML VIAL SLOW IVP PRN (23:42)
[2023-11-20] MEDS: Ipratropium/Albuterol 3 ML NEB NEB SCH (23:49)
[2023-11-21 02:48] VITALS: BP 132/60; TEMP 98.8
== END 2023-11-21 05:02 | disposition expired | DRG 871 ==
LOC: ERS 23:28 → CCU 11-19 03:12 → 2SE 11-20 12:09 → IMCU/EMU 11-20 19:26
PROVIDERS: ADMIT Family Medicine; ATTEND Family Medicine
PROC: 02HV33Z Insertion of Infusion Device into Superior Vena Cava, Percutaneous Approach (ICD-10-PCS; principal; 2023-11-19)
PROC: 4A10X4Z Monitoring of Central Nervous Electrical Activity, External Approach (ICD-10-PCS; 2023-11-19)
PROC: 3E033XZ Introduction of Vasopressor into Peripheral Vein, Percutaneous Approach (ICD-10-PCS; 2023-11-19)
PROC: 3E03329 Introduction of Other Anti-infective into Peripheral Vein, Percutaneous Approach (ICD-10-PCS; 2023-11-19)
PROC: 4A133R1 Monitoring of Arterial Saturation, Peripheral, Percutaneous Approach (ICD-10-PCS; 2023-11-20)
PROC: 5A09357 Assistance with Respiratory Ventilation, Less than 24 Consecutive Hours, Continuous Positive Airway Pressure (ICD-10-PCS; 2023-11-20)
DX: A41.9 Sepsis, unspecified organism (principal); I63.9 Cerebral infarction, unspecified; Z66 Do not resuscitate; J96.01 Acute respiratory failure with hypoxia; R65.21 Severe sepsis with septic shock; J96.02 Acute respiratory failure with hypercapnia; E87.20 Acidosis, unspecified; I47.10 Supraventricular tachycardia, unspecified; I50.30 Unspecified diastolic (congestive) heart failure; E27.40 Unspecified adrenocortical insufficiency; K55.1 Chronic vascular disorders of intestine; G93.49 Other encephalopathy; I49.3 Ventricular premature depolarization; I25.10 Atherosclerotic heart disease of native coronary artery without angina pectoris; E78.5 Hyperlipidemia, unspecified; J44.9 Chronic obstructive pulmonary disease, unspecified; I34.0 Nonrheumatic mitral (valve) insufficiency; F17.210 Nicotine dependence, cigarettes, uncomplicated; I70.202 Unspecified atherosclerosis of native arteries of extremities, left leg; I70.201 Unspecified atherosclerosis of native arteries of extremities, right leg; I48.0 Paroxysmal atrial fibrillation; D64.9 Anemia, unspecified; E83.41 Hypermagnesemia; R29.810 Facial weakness; R47.81 Slurred speech; J84.10 Pulmonary fibrosis, unspecified; E87.70 Fluid overload, unspecified; E86.9 Volume depletion, unspecified; Z98.890 Other specified postprocedural states; I69.398 Other sequelae of cerebral infarction; Z79.899 Other long term (current) drug therapy; Z79.82 Long term (current) use of aspirin; Z90.49 Acquired absence of other specified parts of digestive tract; Z85.038 Personal history of other malignant neoplasm of large intestine; Z90.89 Acquired absence of other organs
CPT/HCPCS: 36415; 36416; 36556; 36600; 70450; 70496; 70498; 71045; 71275; 74174; 80048; 80053; 80061; 80202; 80306; 80307; 81001; 82550; 82805; 83605; 83690; 83735; 83880; 84145; 84484; 85025; 85610; 85730; 86850; 86900; 86901; 87040; 87081; 87149; 93005; 93010; 93306; 94640; 94660; 94760; 95700; 95711; 95819; 96374; 96375; J0360; J0692; J1720; J1815; J1940; J2310; J3370; J3370-JW; J3475; J3490; J7120; J7620; J7626; Q9967; S0028